=== PATIENT | female | born 1950 | race Caucasian/White ===

== ENCOUNTER 2023-06-12 13:07 | Emergency (ER) | payer MEDICARE, OTHER, SELFPAY ==
[2023-06-12 13:46] VITALS: BP 89/64; PULSE 84; RESP 16; TEMP 36.3; O2SAT 98
--- NOTE | 2023-06-12 14:52 | ED.NURSE ---
Water provided to Pt by jacy LOGAN with . Pt to attempt to provide urine sample.
[2023-06-12 15:09] LABS: Basophils Absolute Auto 0.01 K/uL (0.00-0.30); Basophils Percent Auto 0.2 % (0.0-3.0); Eosinophils Absolute Auto 0.11 K/uL (0.00-0.50); Eosinophils Percent Auto 2.4 % (0.0-7.0); Hematocrit 35.7 % (33.0-51.0); Hemoglobin* 11.6 gm/dL (12.0-16.0); Immature Granulocytes Abs Auto 0.04 K/uL (0.00-0.30); Immature Granulocytes Pct Auto 0.9 %; Lymphocytes Absolute Auto 1.26 K/uL (0.90-2.90); Lymphocytes Percent Auto 27.2 % (20-44); Mean Corpuscular HGB Conc 33 gm/dL (32-36); Mean Corpuscular Hemoglobin 32 pg (26-34); Mean Corpuscular Volume 98 fL (80-100); Monocytes Percent Auto 13.8 % (0.0-11.0); Neutrophils Absolute Auto 2.57 K/uL (1.7-7.0); Neutrophils Percent Auto 55.5 % (42.0-72.0); Platelet Count* 115 K/uL (140-440); RDW Coefficient of Variation % 12.9 % (11.5-15.5); Red Blood Count 3.66 m/uL (4.00-5.20); White Blood Count* 4.63 K/uL (4.50-11.00)
[2023-06-12 15:12] LABS: PCO2 VBG 48 mmHG (40-50); pH VBG 7.38 (7.32-7.43)
[2023-06-12 15:13] LABS: HCO3 VBG 29 mmol/L (21-28); PO2 VBG 34.7 mmHG (25-47)
[2023-06-12 15:15] VITALS: BP 124/93; PULSE 88; RESP 12; O2SAT 98
[2023-06-12 15:16] LABS: Slide Review Reflex No
[2023-06-12 15:22] LABS: Chloride* 97 mmol/L (96-114); Potassium* 3.9 mmol/L (3.6-5.1); Sodium* 134 mmol/L (135-149)
[2023-06-12 15:25] LABS: Anion Gap 10 mEq/L (7-15); Blood Urea Nitrogen* 38 mg/dL (7-30); Carbon Dioxide* 27 mmol/L (20-32); Creatinine* 1.1 mg/dL (0.5-1.5); Estimated Glomerular Filt Rate 52 ml/min
[2023-06-12 15:26] LABS: Calcium* 9.2 mg/dL (8.4-10.6); Glucose* 95 mg/dL (60-115)
[2023-06-12 15:37] LABS: Appearance Urine Clear (Clear); Bilirubin Urine Negative (Negative); Blood Urine Negative (Negative); Color Urine Yellow (Yellow); Glucose Urine Negative (Negative); Ketones Urine Negative (Negative); Leukocyte Esterase Urine Negative (Negative); Nitrite Urine Negative (Negative); Protein Urine Negative (Negative); Urobilinogen Urine 0.2 (0.2-1.0); pH Urine 6.5 (5.0-8.5)
[2023-06-12 15:46] LABS: RBC Urine 0-2 (0-2); WBC Urine 0-2 (0-5)
--- NOTE | 2023-06-12 16:14 | ED.NURSE ---
Pt ambulated around unit with walker, tolerates well. Standby assist only. MD updated.
--- NOTE | 2023-06-12 16:55 | ED.GENADULT ---
HPI - General Adult General Date Seen: 06/12/23 Chief complaint: Altered Mental Status Time Seen by Provider: 06/12/23 14:34 Source: patient Mode of arrival: ambulatory Limitations: no limitations History of Present Illness HPI narrative: Patient is a 73-year-old woman here saying that she is having some urinary frequency and urgency. She is not having any dysuria. She does not have any complaints of fevers, abdominal pain, flank pain. She also notes that a couple weeks ago she had put her rice bag that she uses when she has neck pain in the microwave. She says she usually heat set up for 2 minutes and she accidentally must have hit the wrong button and he did up for 21 minutes. This caused the rice bag to understandably over heat. Her friend who is with her has some concerns about her ability to manage in the independent area versus the assisted living. It sounds as if assisted living is an option although neither of them seem to have really any idea how to make that happen. Her friend expresses concerns about her ability to get around independently. She notes that she walks with a walker. She apparently has a nurse who sets up her medications, she says she is on some medicines that make her sleepy. Related Data Home Medications Medication Instructions Recorded Confirmed apixaban 5 mg tablet (Eliquis) 5 mg PO BID 06/12/23 06/12/23 clobetasol 0.05 % topical ointment 1 applic topical 06/12/23 dextromethorphan IR 45 1 tab PO BID 06/12/23 06/12/23 mg-bupropion ER 105 mg biphasic tablet ([facility]) doxycycline hyclate 100 mg capsule 100 mg PO BID 06/12/23 06/12/23 escitalopram oxalate 20 mg tablet 30 mg PO DAILY 06/12/23 06/12/23 estradiol 0.01% (0.1 mg/gram) vaginal 06/12/23 vaginal cream levothyroxine 88 mcg tablet 88 mcg PO DAILY 06/12/23 06/12/23 lisinopril 5 mg tablet 7.5 mg PO DAILY 06/12/23 06/12/23 lorazepam 1 mg tablet 1 mg PO 3XD PRN 06/12/23 06/12/23 metoprolol succinate 100 mg 100 mg PO DAILY 06/12/23 06/12/23 tablet,extended release 24 hr montelukast 10 mg tablet 10 mg PO DAILY 06/12/23 06/12/23 pantoprazole 40 mg tablet,delayed 40 mg PO DAILY 06/12/23 06/12/23 release pramipexole 0.125 mg tablet 0.125 mg PO 3XD 06/12/23 06/12/23 pregabalin 50 mg capsule 50 mg PO 3XD 06/12/23 06/12/23 rizatriptan 10 mg tablet mg PO 06/12/23 rosuvastatin 10 mg tablet 10 mg PO DAILY 06/12/23 06/12/23 sumatriptan succinate 6 mg/0.5 mL mg subcut 06/12/23 subcutaneous pen injector torsemide 20 mg tablet 20 mg PO DAILY 06/12/23 06/12/23 trazodone 50 mg tablet 50 - 150 mg PO QPM 06/12/23 06/12/23 venlafaxine 150 mg 300 mg PO DAILY 06/12/23 06/12/23 capsule,extended release 24 hr venlafaxine 75 mg capsule,extended 75 mg PO DAILY 06/12/23 06/12/23 release 24 hr Allergies Allergy/AdvReac Type Severity Reaction Status Date / Time amoxicillin Allergy Unknown Verified 06/12/23 14:47 nickel Allergy Unknown Verified 06/12/23 14:47 Penicillins Allergy Unknown Verified 06/12/23 14:47 Review of Systems Status of ROS: Reports: 10 or more systems reviewed and unremarkable except as noted in History and below [facility] Social History Smoking Status: Never smoker How often do you have a drink containing alcohol: never AUDIT-C Alcohol total score: 0 Non-prescribed substance use: denies use Exam Narrative: Exam Narrative: Vital signs as noted above. In general, an alert, well-appearing patient. Head: Normocephalic, atraumatic. Eyes: Pupils are equal reactive. Extraocular movements are full. Conjunctivae are normal. ENT: Mucous membranes are moist. Throat is normal. Neck: Supple without lymphadenopathy. Heart: Regular rate and rhythm. No murmur or rub. Lungs: Clear bilaterally. No increased work of breathing, crackles or wheezes. Abdomen: Soft and nontender. No organomegaly. Extremities: Well perfused. No edema. No calf tenderness. Pulses intact. Neurologic: Patient is alert and oriented to person and place. Speech is fluent. Face is symmetric. Moves all extremities equally. Affect: Normal. Skin: Warm and dry. Well perfused. Const: Vital Signs, click to edit/add: Vital Signs - 24 hr 06/12/23 13:46 06/12/23 15:15 Temperature 97.4 F L Pulse Rate [Pulse Oximeter] 84 88 Respiratory Rate 16 12 Blood Pressure [Ri ght Upper Arm] 89/64 L 124/93 H Pulse Oximetry 98 98 Oxygen Delivery Me thod Room Air Room Air Documenting provider has reviewed patient's vital signs: yes Course Course Hospital Course: There is an initial recorded blood pressure of 89/64. We were on down time when the patient came in and so I did not see that blood pressure for quite some time, and by that time blood pressure had been recheck to was 124/93. I do not know whether the original blood pressure was accurate or not, nothing was done between the 2 on our end. She was not ever tachycardic or febrile. I did check some basic labs, her white blood cell count was normal at 4.6. Her hemoglobin was minimally low at 11.6. She does not report any symptoms of GI bleeding. Platelet count mildly low 115,000. Her gas was essentially normal, bicarb was 29, pH was normal at 7.38. PCO2 was 48. Sodium was 134, metabolic panel was otherwise normal aside from BUN of 38. Creatinine was 1.1. Urinalysis was normal, spec gravity was low at 10 10. 0-2 red cells and 0-2 white cells. No squamous cells, no bacteria. My suspicion for urinary tract infection is quite low. I have discussed all this with her. I have reviewed her medications, she is on trazodone and Ativan, either of which may be contributing to some somnolence. She may want to discuss these medications with her primary doctor. If urinary urgency continues to be a problem, she may want to follow up with Urology. I have encouraged her to find out what would be involved to switch to assisted living as it seems as if she would benefit from more help. I do not see any indication for admission to the hospital today however. We did have her walk around the ER she is ambulatory without any difficulty, exam and laboratory analysis here is unremarkable. Vital Signs Vital signs: Initial Vital Signs Temperature 97.4 F L 06/12/23 13:46 Temperature Source Temporal Artery Scan 06/12/23 13:46 Pulse Rate 84 06/12/23 13:46 Pulse Rhythm Regular 06/12/23 13:46 Pulse Strength 3+ Normal 06/12/23 13:46 Respiratory Rate 16 06/12/23 13:46 Blood Pressure 89/64 L 06/12/23 13:46 Blood Pressure Mean 72 06/12/23 13:46 Blood Pressure Position Sitting 06/12/23 13:46 Pulse Oximetry 98 06/12/23 13:46 Oxygen Delivery Method Room Air 06/12/23 13:46 Vital Signs Temperature 97.4 F L 06/12/23 13:46 Pulse Rate 84 06/12/23 13:46 Respiratory Rate 16 06/12/23 13:46 Blood Pressure 89/64 L 06/12/23 13:46 Pulse Oximetry 98 06/12/23 13:46 Oxygen Delivery Method Room Air 06/12/23 13:46 Temperature 97.4 F L 06/12/23 13:46 Pulse Rate 88 06/12/23 15:15 Respiratory Rate 12 06/12/23 15:15 Blood Pressure 124/93 H 06/12/23 15:15 Pulse Oximetry 98 06/12/23 15:15 Oxygen Delivery Method Room Air 06/12/23 15:15 Medical Decision Making Lab Data Labs: Lab Results 06/12/23 06/12/23 Range/Units 14:56 15:28 WBC 4.63 (4.50-11.00) K/uL RBC 3.66 L (4.00-5.20) m/uL Hgb 11.6 L (12.0-16.0) gm/dL Hct 35.7 (33.0-51.0) % MCV 98 (80-100) fL MCH 32 (26-34) pg MCHC 33 (32-36) gm/dL RDW Coeff of [place] 12.9 (11.5-15.5) % Plt Count 115 L (140-440) K/uL Neut % (Auto) 55.5 (42.0-72.0) % Lymph % (Auto) 27.2 (20-44) % [place] % (Auto) 13.8 H (0.0-11.0) % Eos % (Auto) 2.4 (0.0-7.0) % Baso % (Auto) 0.2 (0.0-3.0) % Neut # (Auto) 2.57 (1.7-7.0) K/uL Lymph # (Auto) 1.26 (0.90-2.90) K/uL [place] # (Auto) 0.60 (0.00-0.90) K/UL Eos # (Auto) 0.11 (0.00-0.50) K/uL Baso # (Auto) 0.01 (0.00-0.30) K/uL Abs Immat Gran (auto) 0.04 (0.00-0.30) K/uL Imm/Tot Granulo (auto) 0.9 % VBG pH 7.38 (7.32-7.43) VBG pCO2 48 (40-50) mmHG VBG pO2 34.7 (25-47) mmHG VBG HCO3 29 H (21-28) mmol/L Sodium 134 L (135-149) mmol/L Potassium 3.9 (3.6-5.1) mmol/L Chloride 97 (96-114) mmol/L Carbon Dioxide 27 (20-32) mmol/L Anion Gap 10 (7-15) mEq/L BUN 38 H (7-30) mg/dL Creatinine 1.1 (0.5-1.5) mg/dL Estimated GFR 52 ml/min Glucose 95 (60-115) mg/dL Calcium 9.2 (8.4-10.6) mg/dL Urine Color Yellow (Yellow) Urine Appearance Clear (Clear) Urine pH 6.5 (5.0-8.5) Ur Specific [place] 1.010 (1.000-1.030) Urine Protein Negative (Negative) Urine Glucose (UA) Negative (Negative) Urine Ketones Negative (Negative) Urine Blood Negative (Negative) Urine Nitrite Negative (Negative) Urine Bilirubin Negative (Negative) Urine Urobilinogen 0.2 (0.2-1.0) Ur Leukocyte Esterase Negative (Negative) Urine RBC 0-2 (0-2) Urine WBC 0-2 (0-5) Ur Squamous Epith Cells None (None-Few) Urine Bacteria None (None) Discharge Plan Discharge Clinical Impression: Weakness Patient Disposition: Home, Self-Care Condition: Stable Instructions: Weakness (ED) Additional Instructions: It sounds as if you would benefit from assisted living verses independent living. You take both trazodone and Ativan, both of which can be sedating and contribute to some confusion. You may want to address these medications with your primary doctor. Your labs today are normal, there is no evidence of urinary tract infection. You may want to limit your fluid intake somewhat and see if that improves how often you need to use the bathroom. If he continued to have significant urinary urgency, follow-up with Urology. Prescriptions: No Action venlafaxine 75 mg capsule,extended release 24hr 75 mg PO DAILY doxycycline hyclate 100 mg capsule 100 mg PO BID torsemide 20 mg tablet 20 mg PO DAILY trazodone 50 mg tablet 50 - 150 mg PO QPM rizatriptan 10 mg tablet PO metoprolol succinate 100 mg tablet extended release 24 hr 100 mg PO DAILY venlafaxine 150 mg capsule,extended release 24hr 300 mg PO DAILY levothyroxine 88 mcg tablet 88 mcg PO DAILY pantoprazole 40 mg tablet,delayed release (DR/EC) 40 mg PO DAILY pramipexole 0.125 mg tablet 0.125 mg PO 3XD montelukast 10 mg tablet 10 mg PO DAILY lisinopril 5 mg tablet 7.5 mg PO DAILY clobetasol 0.05 % ointment 1 applic topical lorazepam 1 mg tablet 1 mg PO 3XD PRN estradiol 0.01 % (0.1 mg/gram) cream vaginal sumatriptan succinate 6 mg/0.5 mL pen injector subcut escitalopram oxalate 20 mg tablet 30 mg PO DAILY rosuvastatin 10 mg tablet 10 mg PO DAILY pregabalin 50 mg capsule 50 mg PO 3XD Eliquis 5 mg tablet 5 mg PO BID [place] 45-105 mg tablet,IR,delayed rel,biphasic 1 tab PO BID Follow Up/Referrals: Provider,Not a Local [Primary Care Provider] - Stand Alone Forms: [employer] Info Instructions
[2023-06-12 17:05] VITALS: BP 94/72
== END 2023-06-12 17:06 | disposition home or self-care (01) ==
PROVIDERS: Emergency Provider Emergency Medicine
DX: R53.1 Weakness (principal)
CPT/HCPCS: 36415; 80048; 81001; 82803; 85025; 99283; 99284

== ENCOUNTER 2023-09-11 12:11 | Outpatient (CLI) | payer MEDICARE, OTHER, SELFPAY | END 2023-09-11 12:12 | disposition home or self-care (01) | LOC: RAD 12:14 | PROVIDERS: Visit Provider Family Medicine | DX: I50.9 Heart failure, unspecified (principal); I51.7 Cardiomegaly; I35.1 Nonrheumatic aortic (valve) insufficiency; I34.1 Nonrheumatic mitral (valve) prolapse; I07.1 Rheumatic tricuspid insufficiency | CPT/HCPCS: 93306 ==

== ENCOUNTER 2023-12-31 18:58 | Outpatient (CLI) | payer MEDICARE, OTHER, SELFPAY | END 2023-12-31 18:59 | disposition home or self-care (01) | LOC: AMB 01-01 10:02 | PROVIDERS: Visit Provider Family Medicine | DX: R53.1 Weakness (principal); R11.2 Nausea with vomiting, unspecified; R19.7 Diarrhea, unspecified | CPT/HCPCS: A0425; A0427 ==

== ENCOUNTER 2023-12-31 19:38 | Observation (INO) | payer MEDICARE, OTHER, SELFPAY ==
[2023-12-31] VITALS (13 sets, daily range): BP systolic 94–135; BP diastolic 53–84; PULSE 75–100; RESP 16; TEMP 36.3–36.6; O2SAT 92–100; BMI 28.3; BMI 26.9
--- NOTE | 2023-12-31 20:11 | ED.NAVMDI ---
HPI - Nausea/Vomiting/Diarrhea General Time Seen by Provider: 20:11 Date Seen: 12/31/23 Chief complaint: Nausea/Vomiting Stated complaint: Weak, vomiting Time Seen by Provider: 12/31/23 20:03 Source: patient and RN notes reviewed Mode of arrival: ambulatory Limitations: no limitations History of Present Illness HPI Narrative: Patient is a 73yo female brought in by EMS from her independent living apartment for nausea/vomiting and diarrhea. She last ate or drank at about 730am today. Did feel more weak earlier today and some body aches without fever but still went to jewish. At 11am started vomiting and has been 3-4x/hour since then, has not been able to keep anything in. She has had diarrhea develop too. Denies any abdominal pain with this. She states that she felt a little chest discomfort just before I came in; was just talking to a inside outside sales representative whom was calling with results from a stress test last week. Essentially, she states that her mitral valve is leaking and causing back pressure into her heart. This has settled down some and the most recent test they did doesn't support surgical correction of the valve. No blood in stool or vomit noted. EMS did start IVF 500cc and gave 4mg IV zofran. She notes that she is still nauseated but zofran was not given that long ago. She doesn't remember her medications. Related Data Home Medications Medication Instructions Recorded Confirmed apixaban 5 mg tablet (Eliquis) 5 mg PO BID 06/12/23 12/31/23 clobetasol 0.05 % topical ointment 1 applic topical 06/12/23 09/15/23 dextromethorphan IR 45 1 tab PO BID 06/12/23 12/31/23 mg-bupropion ER 105 mg biphasic tablet (Auvelity) doxycycline hyclate 100 mg capsule 100 mg PO BID 06/12/23 12/31/23 escitalopram oxalate 20 mg tablet 30 mg PO DAILY 06/12/23 12/31/23 estradiol 0.01% (0.1 mg/gram) vaginal 06/12/23 09/15/23 vaginal cream levothyroxine 88 mcg tablet 88 mcg PO DAILY 06/12/23 12/31/23 lisinopril 5 mg tablet 7.5 mg PO DAILY 08/28/23 03/17/24 lorazepam 1 mg tablet 1 mg PO 3XD PRN 06/12/23 09/15/23 metoprolol succinate 100 mg 100 mg PO DAILY 06/12/23 12/31/23 tablet,extended release 24 hr pantoprazole 40 mg tablet,delayed 40 mg PO DAILY 06/12/23 12/31/23 release pramipexole 0.125 mg tablet 0.125 mg PO 3XD 06/12/23 12/31/23 pregabalin 50 mg capsule 50 mg PO 3XD 06/12/23 12/31/23 rosuvastatin 10 mg tablet 10 mg PO DAILY 06/12/23 09/15/23 sumatriptan succinate 6 mg/0.5 mL mg subcut 06/12/23 09/15/23 subcutaneous pen injector torsemide 20 mg tablet 20 mg PO DAILY 06/12/23 12/31/23 trazodone 50 mg tablet 50 - 150 mg PO QPM 06/12/23 12/31/23 venlafaxine 150 mg 300 mg PO DAILY 06/12/23 12/31/23 capsule,extended release 24 hr venlafaxine 75 mg capsule,extended 75 mg PO DAILY 06/12/23 12/31/23 release 24 hr rizatriptan 10 mg tablet mg PO PRN 09/15/23 09/15/23 Allergies Allergy/AdvReac Type Severity Reaction Status Date / Time amoxicillin Allergy Unknown Verified 09/15/23 13:32 nickel Allergy Unknown Verified 09/15/23 13:32 Penicillins Allergy Unknown Verified 09/15/23 13:32 Review of Systems Status of ROS: Reports: 6 or more systems reviewed and unremarkable except as noted in History and below [facility] Medical History (Updated 12/31/23 @ 22:24 by Toby Warren MD) Hypothyroidism ?E03.9 - Hypothyroidism, unspecified (ICD-10) History of thrombocytopenia ?Z86.2 - Personal history of diseases of the blood and blood-forming organs and certain disorders involving the immune mechanism (ICD-10) Breast cancer ?C50.919 - Malignant neoplasm of unspecified site of unspecified female breast (ICD-10) Hyperlipidemia ?E78.5 - Hyperlipidemia, unspecified (ICD-10) Degenerative disc disease Restless legs ?G25.81 - Restless legs syndrome (ICD-10) Depression ?F32.A - Depression, unspecified (ICD-10) Atrial fibrillation ?I48.91 - Unspecified atrial fibrillation (ICD-10) Mitral regurgitation ?I34.0 - Nonrheumatic mitral (valve) insufficiency (ICD-10) Surgical History (Updated 12/31/23 @ 22:19 by Toby Warren MD) Status post ORIF of fracture of ankle ?Z98.890 - Other specified postprocedural states (ICD-10) ?Z87.81 - Personal history of (healed) traumatic fracture (ICD-10) H/O endoscopic sinus surgery ?Z98.890 - Other specified postprocedural states (ICD-10) History of cholecystectomy ?Z90.49 - Acquired absence of other specified parts of digestive tract (ICD-10) H/O cervical spine surgery ?Z98.890 - Other specified postprocedural states (ICD-10) S/P lumpectomy, left breast ?Z98.890 - Other specified postprocedural states (ICD-10) Previous back surgery ?Z98.890 - Other specified postprocedural states (ICD-10) 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 . Daughter Cassidy is healthcare power of assistant city attorney. Code status is DNR. She does not smoke. She does not drink alcohol What is your current living situation?: I presently have a place to live Problems where you live: no known problems Problems where you live details: N/A In the past 12 months, utilities in danger of being shut off: no In past 12 months, lack of transportation kept you from medical appts, meetings, work, or getting things needed for daily living: yes In the past 12 mos, have been you worried that your food would run out before you had money to buy more?: never true In the past 12 mos, the food you bought just didn't last and you didn't have money to buy more?: never true Highest level of school completed/degree received: Master's degree Smoking Status: Never smoker Do you use any of these nicotine containing products: None Second hand tobacco smoke exposure: No How often do you have a drink containing alcohol: never AUDIT-C Alcohol total score: 0 Non-prescribed substance use: denies use Caffeine: No How often does anyone, including family, friends and others, physically hurt you: never How often does anyone, including family, friends and others, insult or talk down to you: never How often does anyone, including family, friends and others, threaten you with harm: never How often does anyone, including family, friends and others, scream or curse at you: never service: No Exam Const: Vital Signs, click to edit/add: Vital Signs - 24 hr 12/31/23 19:47 12/31/23 20:16 12/31/23 20:18 Temperature 97.7 F Pulse Rate 100 Pulse Rate [Pulse Oximeter] 93 Respiratory Rate 16 16 Blood Pressure Blood Pressure [Ri ght Upper Arm] 134/84 Pulse Oximetry 98 100 100 Oxygen Delivery Me thod Room Air Room Air 12/31/23 20:35 12/31/23 20:50 12/31/23 21:00 Temperature Pulse Rate 83 75 Pulse Rate [Pulse Oximeter] Respiratory Rate Blood Pressure 135/75 Blood Pressure [Ri ght Upper Arm] Pulse Oximetry 95 96 Oxygen Delivery Me thod Room Air Room Air 12/31/23 21:02 12/31/23 21:15 12/31/23 21:34 Temperature Pulse Rate 83 95 Pulse Rate [Pulse Oximeter] Respiratory Rate Blood Pressure 104/54 L 121/72 Blood Pressure [Ri ght Upper Arm] Pulse Oximetry 98 96 Oxygen Delivery Me thod This 73-year-old female is alert, interactive, no apparent distress. She was initially under the blankets with her head, stated the light was bothering her. I did hospitalist nocturnist physician 1 of them. She is very pleasant, cooperative. Pupils are equal round, sclera clear, able speak in complete sentences. Oropharynx with dry mucosa, tongue dry but no exudates or erythema noted. Neck supple, no jugular venous distension. Lungs sound clear. She has no tachypnea, no wheezing or crackles. CV regular rate and rhythm, do not hear any significant murmur, normal S1-S2, no S3-S4. Abdomen is soft, bowel sounds are distant but occasionally present, no rebound or guarding, no organomegaly. Her abdomen exam is completely nontender. She is moving extremities. She does complain of some left anterior chest wall pain when I palpate. Documenting provider has reviewed patient's vital signs: yes Course Course ED Course: This is a 73-year-old female that is currently afebrile, no abdominal pain with nonbloody ongoing nausea vomiting and diarrhea. This very likely represents a gastroenteritis. She certainly could have GI symptoms associated with 1 of the viruses that will cause both respiratory and GI symptoms. Nursing staff did collect the triple viral swab on arrival which is appropriate. EMS has an IV in place, giving her 500 mL. Will get appropriate electrolytes, CBC, lactate, will also check a troponin. Will have nursing staff get an EKG. She did complain of some chest symptoms, this could be secondary from her vomiting, could be some gastritis or heartburn with that. Nonetheless, will consider cardiac etiologies. I do think that there is a higher likelihood that the chest pain is coming from something alternate than cardiac, will hold off on any aspirin at this time. Will continue to monitor her closely. It does not seem like she needs any abdominal imaging based on clinical exam. Will await lab results, may need to give further anti emetics, very likely will need more fluids. Reevaluation(s) Time of Reevaluation #1: 21:06 Reevaluation #1: Patient's lactate elevated at 3.1. Fluids from EMS done, will order another L of NS. She is still feeling nauseated. NO abdominal pain, likely very dehydrated. Awaiting other labs. She has had her gallbladder out, 1/2 of her pancreas removed on questioning of prior abdominal surgeries. Consultations Consultation #1: Have reviewed with the hospitalist Dr. Warren. He accepts cares of this patient. Given age and lactate elevation, likely will need further supportive cares. Am giving a 2nd dose of Zofran as she is still feeling nauseated. Reviewed that we had not done abdominal imaging but I do not feel she needs it at this point. I have examined her abdomen twice, do not feel that there is any need for imaging, exam is benign. Did review her complaint of chest pain, he is aware we are waiting for troponin result. Time: 21:16 Vital Signs Vital signs: Initial Vital Signs Temperature 97.7 F 12/31/23 19:47 Temperature Source Temporal Artery Scan 12/31/23 19:47 Pulse Rate 93 12/31/23 19:47 Respiratory Rate 16 12/31/23 19:47 Blood Pressure 134/84 12/31/23 19:47 Blood Pressure Mean 100 12/31/23 19:47 Blood Pressure Position Sitting 12/31/23 19:47 Pulse Oximetry 98 12/31/23 19:47 Oxygen Delivery Method Room Air 12/31/23 19:47 Vital Signs Temperature 97.7 F 12/31/23 19:47 Pulse Rate 93 12/31/23 19:47 Respiratory Rate 16 12/31/23 19:47 Blood Pressure 134/84 12/31/23 19:47 Pulse Oximetry 98 12/31/23 19:47 Oxygen Delivery Method Room Air 12/31/23 19:47 Temperature 97.3 F L 12/31/23 23:00 Pulse Rate 87 12/31/23 23:00 Respiratory Rate 16 12/31/23 23:00 Blood Pressure 94/65 12/31/23 23:00 Pulse Oximetry 95 12/31/23 23:00 Oxygen Delivery Method Room Air 12/31/23 23:00 Medications Administered Medications: Generic Name Dose Route Start Last Admin Trade Name Freq PRN Reason Stop Dose Admin Lactated Ringer's 1,000 mls @ 125 mls/hr 12/31/23 22:10 12/31/23 23:33 Lactated Ringers 1000 Ml IV 125 mls/hr .Q8H CAMMIE Administration Pramipexole Dihydrochloride 0.125 mg 12/31/23 22:15 12/31/23 23:44 Pramipexole 0.125 Mg Tablet PO 0.125 mg TID CAMMIE Administration Pregabalin 50 mg 12/31/23 22:15 12/31/23 23:43 Pregabalin 50 Mg Capsule PO 50 mg TID CAMMIE Administration Discontinued Medications Generic Name Dose Route Start Last Admin Trade Name Freq PRN Reason Stop Dose Admin Sodium Chloride 1,000 mls @ 500 mls/hr 12/31/23 21:03 12/31/23 21:05 0.9 % Sodium Chloride 1000 Ml IV 12/31/23 23:02 500 mls/hr .Q2H CAMMIE Administration Ondansetron HCl 4 mg 12/31/23 21:15 12/31/23 21:20 Ondansetron 2 Mg/Ml Inj IVP 12/31/23 21:16 4 mg ONCE ONE Administration Pramipexole Dihydrochloride 0.25 mg 12/31/23 22:26 12/31/23 23:44 Pramipexole 0.25 Mg Tablet PO 12/31/23 22:27 0.25 mg ONCE ONE Administration MDM - Nausea/Vomiting/Diarrhea Lab Data Attestation: I reviewed the patient's lab results. Labs: Lab Results 12/31/23 12/31/23 Range/Units 19:42 20:48 WBC 8.40 (4.50-11.00) K/uL RBC 4.31 (4.00-5.20) m/uL Hgb 13.9 (12.0-16.0) gm/dL Hct 41.7 (33.0-51.0) % MCV 97 (80-100) fL MCH 32 (26-34) pg MCHC 33 (32-36) gm/dL RDW Coeff of Vielka 13.0 (11.5-15.5) % Plt Count 79 L (140-440) K/uL Neut % (Auto) 92.1 H (42.0-72.0) % Lymph % (Auto) 3.5 L (20-44) % [place] % (Auto) 4.2 (0.0-11.0) % Eos % (Auto) 0.1 (0.0-7.0) % Baso % (Auto) 0.1 (0.0-3.0) % Neut # (Auto) 7.70 H (1.7-7.0) K/uL Lymph # (Auto) 0.30 L (0.90-2.90) K/uL [place] # (Auto) 0.40 (0.00-0.90) K/UL Eos # (Auto) 0.01 (0.00-0.50) K/uL Baso # (Auto) 0.01 (0.00-0.30) K/uL Abs Immat Gran (auto) 0.00 (0.00-0.30) K/uL Imm/Tot Granulo (auto) 0.0 % Sodium 140 (135-149) mmol/L Potassium 3.7 (3.6-5.1) mmol/L Chloride 106 (96-114) mmol/L Carbon Dioxide 25 (20-32) mmol/L Anion Gap 9 (7-15) mEq/L BUN 39 H (7-30) mg/dL Creatinine 0.8 (0.5-1.5) mg/dL Estimated Creat Clear 36.68 Estimated GFR 77 ml/min Glucose 138 H (60-115) mg/dL Lactate 3.1 H (0.5-1.9) mmol/L Calcium 8.9 (8.4-10.6) mg/dL Magnesium 2.0 (1.5-2.6) mg/dL Total Bilirubin 1.1 (0.1-1.5) mg/dL AST 35 (12-35) U/L ALT 32 (4-35) U/L Alkaline Phosphatase 63 (40-150) U/L Troponin I Cancelled C-Reactive Protein < 0.5 L (0.5-1.0) mg/dL Total Protein 6.7 (6.0-8.3) g/dL Albumin 4.5 (3.3-5.0) g/dL SARS-CoV-2 (PCR) Negative SARS-CoV-2 (Negative) Influenza Type A (PCR) Negative PCR FLU A (Negative) Influenza Type B (PCR) Negative PCR FLU B (Negative) RSV (PCR) Negative PCR RSV (Negative) ECG Data Attestation: I personally reviewed and interpreted this ECG as follows: (Sinus rhythm, 87 beats per minute, frequent PVCs. Some artifact in 1, aVL in 3 particularly. No definitive ischemic change noted.) ECG interpretation date: 12/31/23 ECG interpretation time: 20:44 Prior ECG tracings: not available for review Discharge Plan Discharge Clinical Impression: Gastroenteritis, Dehydration Patient Disposition: Admitted As Observation
[2023-12-31 20:26] LABS: PCR FLU A Negative PCR FLU A (Negative); PCR FLU B Negative PCR FLU B (Negative); PCR RSV Negative PCR RSV (Negative); SARS PCR* Negative SARS-CoV-2 (Negative)
[2023-12-31 20:55] LABS: Lactate* 3.1 mmol/L (0.5-1.9)
[2023-12-31 20:57] LABS: Basophils Absolute Auto 0.01 K/uL (0.00-0.30); Basophils Percent Auto 0.1 % (0.0-3.0); Eosinophils Absolute Auto 0.01 K/uL (0.00-0.50); Eosinophils Percent Auto 0.1 % (0.0-7.0); Hematocrit 41.7 % (33.0-51.0); Hemoglobin* 13.9 gm/dL (12.0-16.0); Lymphocytes Percent Auto 3.5 % (20-44); Mean Corpuscular HGB Conc 33 gm/dL (32-36); Mean Corpuscular Hemoglobin 32 pg (26-34); Mean Corpuscular Volume 97 fL (80-100); Monocytes Percent Auto 4.2 % (0.0-11.0); Neutrophils Percent Auto 92.1 % (42.0-72.0); Platelet Count* 79 K/uL (140-440); Red Blood Count 4.31 m/uL (4.00-5.20)
[2023-12-31 20:59] LABS: Slide Review Reflex No
[2023-12-31] MEDS: 0.9 % SODIUM CHLORIDE 1000 ml 1,000 ML 500 ML IV (21:05)
[2023-12-31 21:13] LABS: Albumin* 4.5 g/dL (3.3-5.0); Chloride* 106 mmol/L (96-114)
[2023-12-31 21:14] LABS: Potassium* 3.7 mmol/L (3.6-5.1); Sodium* 140 mmol/L (135-149)
[2023-12-31 21:16] LABS: Creatinine* 0.8 mg/dL (0.5-1.5); Est. Creatinine Clearance* 36.68; Estimated Glomerular Filt Rate 77 ml/min
[2023-12-31 21:17] LABS: Alanine Aminotransferase* 32 U/L (4-35); Alkaline Phosphatase* 63 U/L (40-150); Anion Gap 9 mEq/L (7-15); Aspartate Amino Transferase* 35 U/L (12-35); Bilirubin Total* 1.1 mg/dL (0.1-1.5); Blood Urea Nitrogen* 39 mg/dL (7-30); Calcium* 8.9 mg/dL (8.4-10.6); Carbon Dioxide* 25 mmol/L (20-32); Glucose* 138 mg/dL (60-115); Total Protein* 6.7 g/dL (6.0-8.3)
[2023-12-31] MEDS: ONDANSETRON 2 MG/ML inj 4 MG IVP (21:20)
[2023-12-31 21:23] LABS: C Reactive Protein* < 0.5 mg/dL (0.5-1.0)
--- NOTE | 2023-12-31 22:06 | P.IMHP_ITS ---
Hospitalist- H&P: HPI History of Present Illness Date Seen: 12/31/23 Chief complaint: Weak, vomiting Narrative: Unruly Lassiter is a 73 year old female with severe mitral regurgitation, depression, gastroesophageal reflux who presents with onset this morning of intractable vomiting and diarrhea. She reports that she was generally doing well with perhaps mild symptoms of illness last evening when she went to bed. She got up this morning and went to anabaptism. At 11:00 a.m. she began recurrent vomiting. Was nonbloody. She did not have any abdominal pain. She then developed diarrhea as well with multiple recurrent episodes. She is not aware of any known exposures of others that have been ill in a similar way. She lives at [facility] where she has been exposed to a number of other people who might be ill however. No history of chronic gastrointestinal illness other than reflux. She has not had any fever. Last week she had evaluation for UTI and cultures were negative. She is on chronic doxycycline for rosacea. No other recent antibiotics. Recent past medical history is notable for fairly extensive cardiac evaluation for her mitral regurgitation. She had an echocardiogram in August 2023 showing severe mitral regurgitation. Followed up with a ERIKA showing similar findings. December 05 she underwent coronary angiogram showing no marked coronary disease but a lot of coronary calcification. She underwent cardiac MRI showing only mild mitral regurgitation. She had a stress echo showing moderate mitral regurgitation but she did not reach a target heart rate. She has a preserved ejection fraction of 60-65%. She is getting ongoing evaluation for p ossible mitral valve surgery. Review of Systems Narrative: She reports generally doing well other than fatigue from her extensive cardiac evaluation and now today her vomiting and diarrhea. No other significant new recent problems. [facility] Medical History (Updated 12/31/23 @ 22:24 by Toby Warren MD) Hypothyroidism ?E03.9 - Hypothyroidism, unspecified (ICD-10) History of thrombocytopenia ?Z86.2 - Personal history of diseases of the blood and blood-forming organs and certain disorders involving the immune mechanism (ICD-10) Breast cancer ?C50.919 - Malignant neoplasm of unspecified site of unspecified female breast (ICD-10) Hyperlipidemia ?E78.5 - Hyperlipidemia, unspecified (ICD-10) Degenerative disc disease Restless legs ?G25.81 - Restless legs syndrome (ICD-10) Depression ?F32.A - Depression, unspecified (ICD-10) Atrial fibrillation ?I48.91 - Unspecified atrial fibrillation (ICD-10) Mitral regurgitation ?I34.0 - Nonrheumatic mitral (valve) insufficiency (ICD-10) Surgical History (Updated 12/31/23 @ 22:19 by Toby Warren MD) Status post ORIF of fracture of ankle ?Z98.890 - Other specified postprocedural states (ICD-10) ?Z87.81 - Personal history of (healed) traumatic fracture (ICD-10) H/O endoscopic sinus surgery ?Z98.890 - Other specified postprocedural states (ICD-10) History of cholecystectomy ?Z90.49 - Acquired absence of other specified parts of digestive tract (ICD- 10) H/O cervical spine surgery ?Z98.890 - Other specified postprocedural states (ICD-10) S/P lumpectomy, left breast ?Z98.890 - Other specified postprocedural states (ICD-10) Previous back surgery ?Z98.890 - Other specified postprocedural states (ICD-10) 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 . Daughter Cassidy is healthcare power of prosecuting attorney. Code status is DNR. She does not smoke. She does not drink alcohol Smoking Status: Never smoker Do you use any of these nicotine containing products: None Second hand tobacco smoke exposure: No How often do you have a drink containing alcohol: never AUDIT-C Alcohol total score: 0 Non-prescribed substance use: denies use Meds Home Medications and Allergies Home Medications Medication Instructions Recorded Confirmed Type apixaban 5 mg tablet (Eliquis) 5 mg PO BID 06/12/23 12/31/23 History clobetasol 0.05 % topical ointment 1 applic topical 06/12/23 09/15/23 History dextromethorphan IR 45 1 tab PO BID 06/12/23 12/31/23 History mg-bupropion ER 105 mg biphasic tablet (Auvelity) doxycycline hyclate 100 mg capsule 100 mg PO BID 06/12/23 12/31/23 History escitalopram oxalate 20 mg tablet 30 mg PO DAILY 06/12/23 12/31/23 History estradiol 0.01% (0.1 mg/gram) vaginal 06/12/23 09/15/23 History vaginal cream levothyroxine 88 mcg tablet 88 mcg PO DAILY 06/12/23 12/31/23 History lisinopril 5 mg tablet 7.5 mg PO DAILY 06/12/23 12/31/23 History lorazepam 1 mg tablet 1 mg PO 3XD PRN 06/12/23 09/15/23 History metoprolol succinate 100 mg 100 mg PO DAILY 06/12/23 12/31/23 History tablet,extended release 24 hr pantoprazole 40 mg tablet,delayed 40 mg PO DAILY 06/12/23 12/31/23 History release pramipexole 0.125 mg tablet 0.125 mg PO 3XD 06/12/23 12/31/23 History pregabalin 50 mg capsule 50 mg PO 3XD 06/12/23 12/31/23 History rosuvastatin 10 mg tablet 10 mg PO DAILY 06/12/23 09/15/23 History sumatriptan succinate 6 mg/0.5 mL mg subcut 06/12/23 09/15/23 History subcutaneous pen injector torsemide 20 mg tablet 20 mg PO DAILY 06/12/23 12/31/23 History trazodone 50 mg tablet 50 - 150 mg PO QPM 06/12/23 12/31/23 History venlafaxine 150 mg 300 mg PO DAILY 06/12/23 12/31/23 History capsule,extended release 24 hr venlafaxine 75 mg capsule,extended 75 mg PO DAILY 06/12/23 12/31/23 History release 24 hr rizatriptan 10 mg tablet mg PO PRN 09/15/23 09/15/23 History Allergies Allergy/AdvReac Type Severity Reaction Status Date / Time amoxicillin Allergy Unknown Verified 09/15/23 13:32 nickel Allergy Unknown Verified 09/15/23 13:32 Penicillins Allergy Unknown Verified 09/15/23 13:32 Exam Narrative: Exam Narrative: She is alert and tired appearing. She gives her own history. Eyes normal. Sclerae nonicteric. Oropharynx with dry mucous membranes. Neck is supple without mass or adenopathy. Respirations are clear to auscultation. No wheezing rales or rhonchi. Good air exchange all lung [place]. Cardiovascular: S1, S2, irregularly irregular. 1/6 systolic murmur. No gallop or rub. Abdomen: Bowel sounds active. Abdomen is soft without tenderness or mass. External genitalia normal. Extremities: No edema. Intact pedal pulses. Feet are somewhat cool to touch. No rash. Const: Vital Signs, click to edit/add: Vital Signs - 24 hr 12/31/23 19:47 12/31/23 20:16 12/31/23 20:18 Temperature 97.7 F Pulse Rate 100 Pulse Rate [Pulse Oximeter] 93 Respiratory Rate 16 16 Blood Pressure Blood Pressure [Ri ght Upper Arm] 134/84 Pulse Oximetry 98 100 100 Oxygen Delivery Me thod Room Air Room Air 12/31/23 20:35 12/31/23 20:50 12/31/23 21:00 Temperature Pulse Rate 83 75 Pulse Rate [Pulse Oximeter] Respiratory Rate Blood Pressure 135/75 Blood Pressure [Ri ght Upper Arm] Pulse Oximetry 95 96 Oxygen Delivery Me thod Room Air Room Air 12/31/23 21:02 12/31/23 21:15 12/31/23 21:34 Temperature Pulse Rate 83 95 Pulse Rate [Pulse Oximeter] Respiratory Rate Blood Pressure 104/54 L 121/72 Blood Pressure [Ri ght Upper Arm] Pulse Oximetry 98 96 Oxygen Delivery Me thod 12/31/23 21:39 12/31/23 21:45 Temperature Pulse Rate 77 80 Pulse Rate [Pulse Oximeter] Respiratory Rate Blood Pressure Blood Pressure [Ri ght Upper Arm] Pulse Oximetry 100 92 Oxygen Delivery Me thod Documenting provider has reviewed patient's vital signs: yes Hospitalist - H&P: Result Labs Labs: Short CBC 12/31/23 Range/Units 20:48 WBC 8.40 (4.50-11.00) K/uL Hgb 13.9 (12.0-16.0) gm/dL Hct 41.7 (33.0-51.0) % Plt Count 79 L (140-440) K/uL BMP 12/31/23 20:48 Sodium 140 Potassium 3.7 Chloride 106 Carbon Dioxide 25 BUN 39 H Creatinine 0.8 Glucose 138 H Calcium 8.9 Liver Function 12/31/23 Range/Units 20:48 Total Bilirubin 1.1 (0.1-1.5) mg/dL AST 35 (12-35) U/L ALT 32 (4-35) U/L Alkaline Phosphatase 63 (40-150) U/L Albumin 4.5 (3.3-5.0) g/dL Assessment and Plan Assessment and plan (1) Dehydration: Problem comment: Hold torsemide and lisinopril. Provide maintenance fluids tonight. Status: Acute (2) Gastroenteritis: Problem comment: Likely cause of current illness. Further testing tomorrow if not clinically improving. Status: Acute (3) History of thrombocytopenia: Problem comment: Previous history of thrombocytopenia. Now recurrent on this admission in 12/31/2023. Recheck in a.m. Status: Acute Plan Patient is admitted to the hospital for IV fluids, monitoring of vomiting and diarrhea. Cautious fluid resuscitation given underlying valvular heart disease. Hold lisinopril and torsemide pending clinical improvement. Hold doxycycline. Resume other home medications. Total Time Spent Total Time Spent: Total time spent today is 60 minutes, 40 minutes in coordination care and discussing with patient other providers ongoing evaluation management of dehydration, gastroenteritis in the context of heart disease
[2023-12-31 22:54] LABS: Troponin I* < 0.01 ng/mL (0.01-0.04)
[2023-12-31] MEDS: LACTATED RINGERS 1000 ML 1,000 ML 125 ML IV (23:33)
[2023-12-31] MEDS: PREGABALIN 50 MG CAPSULE PO (23:43)
[2023-12-31] MEDS: PRAMIPEXOLE 0.25 MG TABLET PO (23:44)
[2024-01-01] VITALS (8 sets, daily range): BP systolic 84–111; BP diastolic 56–91; PULSE 72–128; RESP 12–16; TEMP 36.3–36.8; O2SAT 96–100
[2024-01-01] MEDS: MELATONIN 3 MG TABLET PO ×2 (01:31→22:52)
--- NOTE | 2024-01-01 04:21 | PC.NURSE ---
Shift note: Pt was brought to the unit from the ED on bed at 2205, conscious, a/o. Pt was able to use the standing scale with A1. Appeared weak and came with vomitus bag and 1L of saline running at 500ml/hr. Vitally stable on arrival. At 2250, pt asked to go the BR. Had incontinent diarrhea and 2 other diarrhea episode by 2330. Pt asked to have a shower. Assisted with the shower. Treatment given as prescribed. There was discrepancy with the Pramipexole order. MD notified through charge nurse and asked to give 0.25mg instead of multiple dose of additional 0.125mg. IV R/L running at 125ml/hr. Pt requested for sleeping pill. Melatonin 3mg given. Pt confirmed feeling nauseated without vomiting on admission. Pt asked for sprite which appeared effective. No fever recorded.
[2024-01-01] MEDS: LEVOTHYROXINE 88 MCG TABLET PO (06:39)
[2024-01-01] MEDS: LACTATED RINGERS 1000 ML 1,000 ML 125 ML IV ×2 (06:39→15:07)
[2024-01-01 06:45] LABS: Basophils Percent Auto 0.3 % (0.0-3.0); Hemoglobin* 10.3 gm/dL (12.0-16.0); Lymphocytes Percent Auto 13.4 % (20-44); Mean Corpuscular HGB Conc 33 gm/dL (32-36); Mean Corpuscular Hemoglobin 32 pg (26-34); Mean Corpuscular Volume 96 fL (80-100); Monocytes Percent Auto 10.7 % (0.0-11.0); Neutrophils Percent Auto 75.6 % (42.0-72.0); Platelet Count* 63 K/uL (140-440); RDW Coefficient of Variation % 13.1 % (11.5-15.5); Red Blood Count 3.23 m/uL (4.00-5.20); White Blood Count* 3.07 K/uL (4.50-11.00)
[2024-01-01 06:46] LABS: Lactate* 1.5 mmol/L (0.5-1.9)
[2024-01-01 06:57] LABS: Slide Review Reflex No
[2024-01-01 08:00] LABS: Chloride* 109 mmol/L (96-114); Potassium* 3.5 mmol/L (3.6-5.1)
[2024-01-01 08:03] LABS: Carbon Dioxide* 27 mmol/L (20-32); Creatinine* 0.7 mg/dL (0.5-1.5); Est. Creatinine Clearance* 38.44; Estimated Glomerular Filt Rate 90 ml/min
[2024-01-01 08:04] LABS: Blood Urea Nitrogen* 24 mg/dL (7-30); Calcium* 8.4 mg/dL (8.4-10.6); Glucose* 111 mg/dL (60-115)
[2024-01-01 08:11] LABS: Anion Gap 1 mEq/L (7-15); Sodium* 137 mmol/L (135-149)
[2024-01-01] MEDS: OMEPRAZOLE 20 MG CAPSULE DR 40 MG PO (09:15)
[2024-01-01] MEDS: VENLAFAXINE ER 75 MG CAPSULE 300 MG PO ×2 (09:15→14:00)
[2024-01-01] MEDS: PREGABALIN 50 MG CAPSULE PO ×3 (09:15→21:47)
[2024-01-01] MEDS: PRAMIPEXOLE 0.125 MG TABLET PO ×3 (09:15→21:43)
[2024-01-01] MEDS: APIXABAN 5 MG TABLET PO (09:15)
[2024-01-01] MEDS: ESCITALOPRAM 10 MG TABLET 20 MG PO (09:15)
[2024-01-01] MEDS: METOPROLOL SUCCINATE (XL) 100 MG TAB PO (09:16)
--- NOTE | 2024-01-01 11:11 | PM.IMPN1 ---
Progress Note: A&P Assessment and plan (1) Dehydration: Problem details: Appetite is still poor and still having loose stools, but improving - Continue to hold torsemide and lisinopril. - Continue maintenance fluids tonight. Status: Acute (2) Gastroenteritis: Problem details: Likely cause of current illness. -Continue supportive cares today -If no improvement by tomorrow or if she develops abdominal pain, may need further workup Status: Acute (3) History of thrombocytopenia: Problem details: Previous history of thrombocytopenia. Now recurrent on this admission in 12/31/2023. Now with Hgb drop. Suspect some diultion, but unlikely explains all. Most likely due to acute infection. No evidence of bleeding -Hold apixaban -Check peripheral smear -Follow CBC, consider FOBT if anemia worsening Status: Acute Subjective Date Seen: 01/01/24 Interval history: Patient is seen and examined. She is starting to feel a little better, but still with frequent stools and not much appetite. Nausea is improved and she has not had vomiting today. Denies any focal abdominal pain but has irritability in her abdomen. EXAM General-no distress, non-toxic HEENT- NCAT Resp- Breathing is comfortable and unlabored Abd- No distension, soft and nontender Neuro- No lateralizing deficits Exam Const: Vital Signs, click to edit/add: Vital Signs - 24 hr 12/31/23 19:47 12/31/23 20:16 12/31/23 20:18 Temperature 97.7 F Pulse Rate 100 Pulse Rate [Pulse Oximeter] 93 Pulse Rate [Right Pulse Oximeter] Respiratory Rate 16 16 Blood Pressure Blood Pressure [Ri ght Arm] Blood Pressure [Ri ght Upper Arm] 134/84 Pulse Oximetry 98 100 100 Oxygen Delivery Me thod Room Air Room Air 12/31/23 20:35 12/31/23 20:50 12/31/23 21:00 Temperature Pulse Rate 83 75 Pulse Rate [Pulse Oximeter] Pulse Rate [Right Pulse Oximeter] Respiratory Rate Blood Pressure 135/75 Blood Pressure [Ri ght Arm] Blood Pressure [Ri ght Upper Arm] Pulse Oximetry 95 96 Oxygen Delivery Me thod Room Air Room Air 12/31/23 21:02 12/31/23 21:15 12/31/23 21:34 Temperature Pulse Rate 83 95 Pulse Rate [Pulse Oximeter] Pulse Rate [Right Pulse Oximeter] Respiratory Rate Blood Pressure 104/54 L 121/72 Blood Pressure [Ri ght Arm] Blood Pressure [Ri ght Upper Arm] Pulse Oximetry 98 96 Oxygen Delivery Me thod 12/31/23 21:39 12/31/23 21:45 12/31/23 22:26 Temperature 97.8 F Pulse Rate 77 80 Pulse Rate [Pulse Oximeter] Pulse Rate [Right Pulse Oximeter] 81 Respiratory Rate 16 Blood Pressure Blood Pressure [Ri ght Arm] 119/53 L Blood Pressure [Ri ght Upper Arm] Pulse Oximetry 100 92 98 Oxygen Delivery Me thod Room Air 12/31/23 23:00 12/31/23 23:00 01/01/24 02:20 Temperature 97.3 F L 97.3 F L Pulse Rate Pulse Rate [Pulse Oximeter] Pulse Rate [Right Pulse Oximeter] 87 87 72 Respiratory Rate 16 16 16 Blood Pressure Blood Pressure [Ri ght Arm] 94/65 95/56 L Blood Pressure [Ri ght Upper Arm] Pulse Oximetry 95 97 [facility] Room Air 01/01/24 08:07 01/01/24 08:07 Temperature 98.2 F Pulse Rate Pulse Rate [Pulse Oximeter] Pulse Rate [Right Pulse Oximeter] 74 74 Respiratory Rate 12 12 Blood Pressure Blood Pressure [Ri ght Arm] 105/64 Blood Pressure [Ri ght Upper Arm] Pulse Oximetry 97 Oxygen Delivery Nh thod Room Air Labs Labs: Laboratory Results - last 24 hr 12/31/23 12/31/23 12/31/23 19:42 20:48 21:37 WBC 8.40 RBC 4.31 Hgb 13.9 Hct 41.7 MCV 97 MCH 32 MCHC 33 RDW Coeff of Vielka 13.0 Plt Count 79 L Neut % (Auto) 92.1 H Lymph % (Auto) 3.5 L [place] % (Auto) 4.2 Eos % (Auto) 0.1 Baso % (Auto) 0.1 Neut # (Auto) 7.70 H Lymph # (Auto) 0.30 L [place] # (Auto) 0.40 Eos # (Auto) 0.01 Baso # (Auto) 0.01 Abs Immat Gran (auto) 0.00 Imm/Tot Granulo (auto) 0.0 Sodium 140 Potassium 3.7 Chloride 106 Carbon Dioxide 25 Anion Gap 9 BUN 39 H Creatinine 0.8 Estimated Creat Clear 36.68 Estimated GFR 77 Glucose 138 H Lactate 3.1 H Calcium 8.9 Magnesium 2.0 Total Bilirubin 1.1 AST 35 ALT 32 Alkaline Phosphatase 63 Troponin I Cancelled < 0.01 L C-Reactive Protein < 0.5 L Total Protein 6.7 Albumin 4.5 SARS-CoV-2 (PCR) Negative SARS-CoV-2 Influenza Type A (PCR) Negative PCR FLU A Influenza Type B (PCR) Negative PCR FLU B RSV (PCR) Negative PCR RSV 01/01/24 06:30 WBC 3.07 L RBC 3.23 L Hgb 10.3 L Hct 31.0 L MCV 96 MCH 32 MCHC 33 RDW Coeff of Vielka 13.1 Plt Count 63 L Neut % (Auto) 75.6 H Lymph % (Auto) 13.4 L [place] % (Auto) 10.7 Eos % (Auto) 0.0 Baso % (Auto) 0.3 Neut # (Auto) 2.30 Lymph # (Auto) 0.40 L [place] # (Auto) 0.30 Eos # (Auto) 0.00 Baso # (Auto) 0.00 Abs Immat Gran (auto) 0.00 Imm/Tot Granulo (auto) 0.0 Sodium 137 Potassium 3.5 L Chloride 109 Carbon Dioxide 27 Anion Gap 1 L BUN 24 Creatinine 0.7 Estimated Creat Clear 38.44 Estimated GFR 90 Glucose 111 Lactate 1.5 Calcium 8.4 Magnesium Total Bilirubin AST ALT Alkaline Phosphatase Troponin I C-Reactive Protein Total Protein Albumin SARS-CoV-2 (PCR) Influenza Type A (PCR) Influenza Type B (PCR) RSV (PCR)
[2024-01-01] MEDS: ACETAMINOPHEN 325 MG TABLET 650 MG PO ×2 (11:52→21:55)
[2024-01-01 13:15] LABS: Mean Corpuscular HGB Conc 33 gm/dL (32-36); Mean Corpuscular Hemoglobin 32 pg (26-34); Mean Corpuscular Volume 99 fL (80-100); Red Blood Count 2.43 m/uL (4.00-5.20)
[2024-01-01 13:24] LABS: Chloride* 108 mmol/L (96-114); Potassium* 3.7 mmol/L (3.6-5.1); Sodium* 133 mmol/L (135-149)
[2024-01-01 13:27] LABS: Anion Gap 4 mEq/L (7-15); Blood Urea Nitrogen* 14 mg/dL (7-30); Carbon Dioxide* 21 mmol/L (20-32); Creatinine* 0.4 mg/dL (0.5-1.5); Est. Creatinine Clearance* 38.44; Estimated Glomerular Filt Rate 103 ml/min
[2024-01-01 13:28] LABS: Calcium* 7.5 mg/dL (8.4-10.6); Glucose* 78 mg/dL (60-115)
[2024-01-01 13:39] LABS: Hemoglobin* 7.8 gm/dL (12.0-16.0); White Blood Count* 1.75 K/uL (4.50-11.00)
[2024-01-01 13:40] LABS: Platelet Count* 46 K/uL (140-440); Slide Review Reflex No
--- NOTE | 2024-01-01 15:51 | CT_ITS ---
Patient: DESTINEE THOMPSON Facility:?[facility] Patient ID:?[id number] Site Patient ID:?[id number]. Site :?[id number] Study:?CT-Abdomen/Pelvis W/ 71CC ISOVUE 370-01/01/2024 5:14:58 PM Ordering Physician:KAMILA Final Report: INDICATION: Vomiting. Hypotension. TECHNIQUE: CT abdomen and pelvis acquired with 71 cc of Isovue 370 IV contrast. COMPARISON: None available. FINDINGS: Lower chest: Lung bases are clear. No pleural or pericardial effusions. Liver: Fatty change and subtle contour irregularity concerning for cirrhosis. No focal lesion. Borderline/mild dilatation of the portal vein with upper abdominal venous collaterals, including gastroesophageal varices suggests underlying portal hypertension. Spleen: Unremarkable. Pancreas: Distal pancreatectomy changes. No CT evidence of acute pancreatitis. No peripancreatic fluid collection. Gallbladder and bile ducts: Prior cholecystectomy. No biliary ductal dilatation. Kidneys: No urolithiasis, hydronephrosis or suspicious renal lesion. Adrenal glands: No nodules. GI tract: Mild fluid retention within distal borderline dilated small bowel loops. No discrete bowel wall thickening. There is trace pelvic free fluid. No pneumatosis or free intraperitoneal gas. Normal appendix. Vascular structures: Atherosclerotic disease. No abdominal aortic aneurysm. Lymph nodes: Unremarkable. Pelvic Organs: Unremarkable. Bones: Degenerative changes of the spine and pelvis. Spinal fusion hardware at L5-S1 appears intact. No acute or suspicious osseous abnormality. IMPRESSION: 1. Mild fluid retention within borderline dilated small bowel loops and trace free fluid suggests an underlying enteritis. No discrete bowel wall thickening, pneumatosis or free intraperitoneal gas. 2. 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 Trace pelvic free fluid could also be related to underlying hepatocellular disease. Dictated by Cheikh Escobar MD @ 01/01/2024 7:02:04 PM Please note that all CT scans at this facility use dose modulation, iterative reconstruction, and/or weight-based dosing when appropriate to reduce radiation dose to as low as reasonably achievable. Dictated by: Cheikh Escobar MD @ 01/01/2024 19:02:33 Signed by:?Cheikh Escobar MD @01/01/2024 7:02:33 PM (Electronic Signature)
[2024-01-01] MEDS: LACTATED RINGERS 500 ML 500 ML IV (16:26)
[2024-01-01] MEDS: VENLAFAXINE ER 75 MG CAPSULE PO (16:29)
[2024-01-01] MEDS: ONDANSETRON 2 MG/ML inj 4 MG IVP (17:18)
[2024-01-01] MEDS: POTASSIUM CHLORIDE 10 MEQ CAPSULE ER 20 MEQ PO (17:59)
--- NOTE | 2024-01-01 18:28 | PC.NURSE ---
End of Shift: Patient pleasant and cooperative. Patient vitally stable, lungs clear, BS WNL, IV running LR at 125. Patient has reported back/neck pain and a headache, tylenol given once and aqua K pad in use. Patient is SBA/walker, with IV pole. Patient given zophran once as she reported nausea after CT. Patient with small appetite but tolerating regular diet. Patient urinating and has had multiple loose BM. Patient does have blood at rectum when wiping and anus does have an area of inflammation, last BM did not have any blood.
[2024-01-01 18:32] LABS: C.Difficile Negative (Negative); CDIFFEPI 027 PRESUMPTIVE NEGATIVE (Negative)
[2024-01-01] MEDS: SODIUM CHLORIDE 0.9 % (FLUSH) 10 ML SYRINGE 5 ML IVF (21:43)
[2024-01-01] MEDS: METOPROLOL TARTRATE 25 MG TABLET PO (21:43)
[2024-01-01] MEDS: TRAZODONE HCL 50 MG TABLET PO (21:47)
[2024-01-01 21:52] LABS: Eosinophils Percent Auto 1.1 % (0.0-7.0); Hematocrit 30.8 % (33.0-51.0); Hemoglobin* 10.1 gm/dL (12.0-16.0); Lymphocytes Percent Auto 22.7 % (20-44); Mean Corpuscular HGB Conc 33 gm/dL (32-36); Mean Corpuscular Hemoglobin 32 pg (26-34); Mean Corpuscular Volume 98 fL (80-100); Monocytes Percent Auto 16.7 % (0.0-11.0); Neutrophils Percent Auto 59.5 % (42.0-72.0); Platelet Count* 67 K/uL (140-440); RDW Coefficient of Variation % 13.5 % (11.5-15.5); Red Blood Count 3.13 m/uL (4.00-5.20); White Blood Count* 2.64 K/uL (4.50-11.00)
[2024-01-01 22:02] LABS: Slide Review Reflex No
[2024-01-01 22:15] LABS: Lactate* 1.4 mmol/L (0.5-1.9)
[2024-01-01 22:18] LABS: NT Pro B Type NatriureticPept* 7880 pg/mL; Troponin I* < 0.01 ng/mL (0.01-0.04)
[2024-01-02] MEDS: LACTATED RINGERS 1000 ML 1,000 ML 125 ML IV ×2 (01:34→10:10)
[2024-01-02 01:40] VITALS: BP 103/65; PULSE 106; RESP 20; TEMP 36.7; O2SAT 99
[2024-01-02 06:19] LABS: Basophils Percent Auto 0.4 % (0.0-3.0); Eosinophils Percent Auto 1.5 % (0.0-7.0); Hemoglobin* 9.9 gm/dL (12.0-16.0); Immature Granulocytes Pct Auto 1.2 %; Lymphocytes Percent Auto 23.6 % (20-44); Mean Corpuscular HGB Conc 33 gm/dL (32-36); Mean Corpuscular Hemoglobin 33 pg (26-34); Mean Corpuscular Volume 98 fL (80-100); Monocytes Percent Auto 16.6 % (0.0-11.0); Neutrophils Percent Auto 56.7 % (42.0-72.0); Platelet Count* 58 K/uL (140-440); RDW Coefficient of Variation % 13.5 % (11.5-15.5); Red Blood Count 3.05 m/uL (4.00-5.20); White Blood Count* 2.59 K/uL (4.50-11.00)
[2024-01-02 06:21] LABS: Slide Review Reflex No
[2024-01-02 06:34] LABS: Chloride* 105 mmol/L (96-114); Sodium* 135 mmol/L (135-149)
[2024-01-02 06:35] LABS: Potassium* 3.7 mmol/L (3.6-5.1)
[2024-01-02 06:37] LABS: Creatinine* 0.6 mg/dL (0.5-1.5); Est. Creatinine Clearance* 38.44; Estimated Glomerular Filt Rate 94 ml/min
[2024-01-02 06:38] LABS: Anion Gap 4 mEq/L (7-15); Blood Urea Nitrogen* 11 mg/dL (7-30); Calcium* 8.1 mg/dL (8.4-10.6); Carbon Dioxide* 26 mmol/L (20-32); Glucose* 106 mg/dL (60-115)
[2024-01-02] MEDS: LEVOTHYROXINE 88 MCG TABLET PO (06:51)
[2024-01-02 07:28] VITALS: BP 86/44; PULSE 74; RESP 14; TEMP 36.6; O2SAT 99
[2024-01-02 07:30] VITALS: BP 121/75; PULSE 110; PULSE 114; RESP 14
[2024-01-02 07:31] VITALS: BP 133/98; PULSE 114
[2024-01-02] MEDS: POTASSIUM CHLORIDE 10 MEQ CAPSULE ER 20 MEQ PO (07:41)
--- NOTE | 2024-01-02 08:42 | PC.NURSE ---
Pt alert and oriented x3. Afebrile. Pt reports 5/10 pain in back, abdomen, and neck. Pain managed with PRN medication. Pt was tachycardic with irregular heart beat, pt denied chest pain, SOB, N/V, headache. Updated Dr. Warren, ordered EKG, and metoprolol tartrate 25 mg. Pt is up SBA with walker, had several small loose bm's. Pt slept intermittently throughout night.
[2024-01-02] MEDS: OMEPRAZOLE 20 MG CAPSULE DR 40 MG PO (08:46)
[2024-01-02] MEDS: PREGABALIN 50 MG CAPSULE PO ×2 (08:46→13:58)
[2024-01-02] MEDS: PRAMIPEXOLE 0.125 MG TABLET PO ×2 (08:46→13:58)
[2024-01-02] MEDS: ESCITALOPRAM 10 MG TABLET 20 MG PO (08:47)
[2024-01-02] MEDS: METOPROLOL SUCCINATE (XL) 100 MG TAB PO (08:47)
[2024-01-02] MEDS: VENLAFAXINE ER 75 MG CAPSULE 300 MG PO ×2 (08:47→13:58)
[2024-01-02 11:00] VITALS: BP 128/79; PULSE 105; RESP 12; TEMP 36.6; O2SAT 98
--- NOTE | 2024-01-02 14:13 | PC.SOCIAL ---
Met with pt to discuss discharge plans. Pt is concerned to go back to [facility] because there is Covid in the building. Discussed ways to isolate, so pt does not get Covid. Phone call with pt and pt's friend to discuss further. Pt's friend will plan to bring food to pt at [facility], so pt does not have to go to the dining room for the time being. Pt's friend will come greens picker pt for discharge at 3:00 pm today. Pt is medically cleared for discharge. Provided update to pt's nurse, , and charge nurse. Charge nurse will fax discharge summary to [facility]. Charge nurse informs that nursing from [facility] did call charge nurse earlier today and provided a fax number for discharge orders. Phone call to Mavis (nurse, [facility]) to provide update. Left a voicemail informing that pt will discharge today and nursing will fax orders to [facility]. Social work will follow up as needed.
--- NOTE | 2024-01-02 14:14 | P.DS_ITS ---
DS: Providers Provider Date Seen: 01/02/24 Date of admission: 12/31/23 21:36 Primary care physician: Nellie Bear MD Admitting Clinician: Toby Warren MD Consults: 12/31/23 22:43 Consult to Residential Sales Consultant [CONS] Routine Comment: Reason for Consult:: Social Service Consult 01/02/24 10:51 Consult to Residential Sales Consultant [CONS] Routine Comment: discharge planning, patient concerns Reason for Consult:: Social Service Consult Attending Physician on discharge: Emilia Harrison MD Date of Discharge: 01/02/24 DS: Diagnosis Discharge Diagnosis (1) Gastroenteritis: Status: Acute Problem details: Likely cause of current illness. CT scan without diverticulitis, consistent with gastroenteritis. (2) History of thrombocytopenia: Status: Acute Problem details: Previous history of thrombocytopenia. Now recurrent on this admission in 12/31/2023. Now with Hgb drop. Suspect some diultion, but unlikely explains all. Most likely due to acute infection. Hgb and platelets stabilized prior to DC, but I held apixaban and subsequently her estradiol until she can follow up with PCP to demonstrate stable hgb and plts. Peripheral smear is pending at the time of discharge (3) Anemia: Status: Acute (4) Dehydration: Status: Acute Problem details: Appetite is still poor and still having loose stools, but improving - Continue to hold torsemide until follow up with PCP. (5) Fatty (change of) liver, not elsewhere classified: Status: Acute Problem details: Incidentally noted on CT abd. Recommend outpatient follow up DS: Summary Hospital Course Hospital Course: Patient was admitted with generalized weakness, nausea, vomiting and diarrhea. Presentation was felt to be consistent with acute gastroenteritis. She was admitted for supportive cares. She continued to have loose stools and unfortunately developed pancytopenia, but counts were essentially stable at the time of discharge. She did have a CT scan which was consistent with gastroenteritis and incidentally showed fatty liver changes. She was able to ambulate well and was tolerating a limited diet. She will discharge back to [facility], but should follow up with PCP in 1 week to repeat labs before resuming diuretic, anticoagulation and estradiol. Status at Discharge Functional status at discharge: independent ambulation Time Spent with Patient Time attestation: Total time spent providing and/or coordinating discharge services: Time spent: Greater than 30 minutes Exam Narrative: Exam Narrative: Patient was seen and examined on the day of discharge with stable exam Const: Vital Signs, click to edit/add: Vital Signs - 24 hr 01/01/24 15:10 01/01/24 15:10 01/01/24 15:11 Temperature 98 F Pulse Rate [Right Pulse Oximeter] 108 H 108 H 128 H Respiratory Rate 16 16 Blood Pressure [Ri ght Arm] 95/62 84/60 L Pulse Oximetry 96 Oxygen Delivery Me thod Room Air 01/01/24 15:13 01/01/24 19:50 01/01/24 22:40 Temperature 97.5 F L 97.8 F Pulse Rate [Right Pulse Oximeter] 119 H 111 H 102 H Respiratory Rate 16 16 Blood Pressure [Ri ght Arm] 98/60 105/64 108/91 H Pulse Oximetry 99 96 Oxygen Delivery Me thod Room Air Room Air 01/01/24 22:40 01/02/24 01:40 01/02/24 07:28 Temperature 98.0 F 97.8 F Pulse Rate [Right Pulse Oximeter] 103 H 106 H 74 Respiratory Rate 20 14 Blood Pressure [Ri ght Arm] 103/65 86/44 L Pulse Oximetry 99 99 Oxygen Delivery Me thod Room Air Room Air 01/02/24 07:30 01/02/24 07:30 01/02/24 07:30 Temperature Pulse Rate [Right Pulse Oximeter] 110 H 110 H 114 H Respiratory Rate 14 Blood Pressure [Ri ght Arm] 121/75 121/75 Pulse Oximetry Oxygen Delivery Me thod 01/02/24 07:31 01/02/24 11:00 Temperature 97.8 F Pulse Rate [Right Pulse Oximeter] 114 H 105 H Respiratory Rate 12 Blood Pressure [Ri ght Arm] 133/98 H 128/79 Pulse Oximetry 98 Oxygen Delivery Me thod Room Air DS: Data Data Completed and Pending Labs on day of discharge: Labs from last 24 hours 01/02/24 01/01/24 01/01/24 06:02 22:08 21:35 WBC 2.59 L 2.64 L RBC 3.05 L 3.13 L Hgb 9.9 L 10.1 L Hct 30.0 L 30.8 L MCV 98 98 MCH 33 32 MCHC 33 33 RDW Coeff of Vielka 13.5 13.5 Plt Count 58 L 67 L Neut % (Auto) 56.7 59.5 Lymph % (Auto) 23.6 22.7 [place] % (Auto) 16.6 H 16.7 H Eos % (Auto) 1.5 1.1 Baso % (Auto) 0.4 0.0 Neut # (Auto) 1.50 L 1.60 L Lymph # (Auto) 0.60 L 0.60 L [place] # (Auto) 0.40 0.40 Eos # (Auto) 0.00 0.00 Baso # (Auto) 0.00 0.00 Abs Immat Gran (auto) 0.00 0.00 Imm/Tot Granulo (auto) 1.2 0.0 Sodium 135 Potassium 3.7 Chloride 105 Carbon Dioxide 26 Anion Gap 4 L BUN 11 Creatinine 0.6 Estimated Creat Clear 38.44 Estimated GFR 94 Glucose 106 Lactate 1.4 Calcium 8.1 L Troponin I < 0.01 L NT-Pro-B Natriuret Pep 7880 Stl C. diff Tox B Gene Stl C. diff [id number] 01/01/24 16:16 WBC RBC Hgb Hct MCV MCH MCHC RDW Coeff of Vielka Plt Count Neut % (Auto) Lymph % (Auto) [place] % (Auto) Eos % (Auto) Baso % (Auto) Neut # (Auto) Lymph # (Auto) [place] # (Auto) Eos # (Auto) Baso # (Auto) Abs Immat Gran (auto) Imm/Tot Granulo (auto) Sodium Potassium Chloride Carbon Dioxide Anion Gap BUN Creatinine Estimated Creat Clear Estimated GFR Glucose Lactate Calcium Troponin I NT-Pro-B Natriuret Pep Stl C. diff Tox B Gene Negative Stl C. diff [id number] PRESUMPTIVE NEGATIVE Discharge Plan Discharge Disposition: Home, Self-Care Date of Admission: 12/31/23 21:36 Attending Provider on Discharge: Emilia Harrison Primary Care Provider: Nellie Bear Condition: Improved Anticipated Discharge Date/Time: 01/02/24 14:06 Discharge Medications: Continued venlafaxine 75 mg capsule,extended release 24hr 75 mg PO DAILY doxycycline hyclate 100 mg capsule 100 mg PO BID trazodone 50 mg tablet 50 - 150 mg PO QPM metoprolol succinate 100 mg tablet extended release 24 hr 100 mg PO DAILY venlafaxine 150 mg capsule,extended release 24hr 300 mg PO DAILY levothyroxine 88 mcg tablet 88 mcg PO DAILY pantoprazole 40 mg tablet,delayed release (DR/EC) 40 mg PO DAILY pramipexole 0.125 mg tablet 0.125 mg PO 3XD lisinopril 5 mg tablet 7.5 mg PO DAILY sumatriptan succinate 6 mg/0.5 mL pen injector subcut escitalopram oxalate 20 mg tablet 30 mg PO DAILY rosuvastatin 10 mg tablet 10 mg PO DAILY pregabalin 50 mg capsule 50 mg PO 3XD [place] 45-105 mg tablet,IR,delayed rel,biphasic 1 tab PO BID Held torsemide 20 mg tablet 20 mg PO DAILY Hold Instructions: Resume on 01/16/24. Hold until follow up with PCP estradiol 0.01 % (0.1 mg/gram) cream vaginal Hold Instructions: Resume on 01/16/24. Hold until you follow up with PCP and can resume your anticoagulation Eliquis 5 mg tablet 5 mg PO BID Hold Instructions: Resume on 01/16/24. Hold until follow up with PCP to follow your labs Discharge Orders: Discharge Order (Routine); Ordered 01/02/24 Ordered By: Emilia Harrison Patient Education: Gastroenteritis (DC) Additional Instructions: Follow up with PCP in 1 week Activity Level: No Restrictions Discharge Diet: Other Diet Detail: BRAT diet until feeling better Follow Up Appointments: Provider,Not a Local [Referring] - Nellie Bear MD [Primary Care Provider] - Forms: D[employer] Info Instructions
--- NOTE | 2024-01-02 15:15 | PC.NURSE ---
Discharge: Patient pleasant and cooperative. Patient vitally stable, lungs clear, BS WNL, IV removed, catheter intact. Patient denies pain and nausea, independent in room. Patient tolerating regular diet. Patient urinating and had a couple BM's no blood seen in stool. Patient signed belongings sheet and discharge form, with no further questions regarding discharge. Patient left the floor by wheelchair to home at [facility] at 1511.
== END 2024-01-02 15:11 | disposition home or self-care (01) ==
LOC: ED 21:19 → MEDSURG 21:38
PROVIDERS: Family Medicine; Admitting Provider Family Medicine; Emergency Provider Family Medicine; PCP Family Medicine; Visit Provider Family Medicine
DX: K52.9 Noninfective gastroenteritis and colitis, unspecified (principal); E86.0 Dehydration; R74.02 Elevation of levels of lactic acid dehydrogenase [LDH]; D69.6 Thrombocytopenia, unspecified; K76.0 Fatty (change of) liver, not elsewhere classified; D64.9 Anemia, unspecified; D61.818 Other pancytopenia; I34.0 Nonrheumatic mitral (valve) insufficiency; R07.9 Chest pain, unspecified; R11.2 Nausea with vomiting, unspecified; R53.1 Weakness; R53.83 Other fatigue; K21.9 Gastro-esophageal reflux disease without esophagitis; L71.9 Rosacea, unspecified; F32.A Depression, unspecified; E03.9 Hypothyroidism, unspecified; E78.5 Hyperlipidemia, unspecified; I10 Essential (primary) hypertension; Z87.81 Personal history of (healed) traumatic fracture; Z86.2 Personal history of diseases of the blood and blood-forming organs and certain disorders involving the immune mechanism; Z90.49 Acquired absence of other specified parts of digestive tract; Z90.411 Acquired partial absence of pancreas; Z98.890 Other specified postprocedural states; Z66 Do not resuscitate
CPT/HCPCS: 36415; 51798; 74177; 80048; 80053; 83605; 83735; 83880; 84484; 85025; 85027; 86140; 87045; 87046; 87427; 87493; 87631; 93005; 94761; 96361; 96374; 96376; 99284; 99285; A9270; G0378; J2405; J7030; J7120; Q9967

== ENCOUNTER 2024-05-13 09:14 | Emergency (ER) | payer MEDICARE, OTHER, SELFPAY ==
[2024-05-13 09:17] VITALS: BP 114/67; PULSE 78; RESP 18; TEMP 36.4; O2SAT 98; BMI 28.0
--- NOTE | 2024-05-13 09:23 | CRLHL7_ITS ---
For Patients: As a result of the Century Cures Act, medical imaging exams and procedure reports are released immediately into your electronic medical record. You may view this report before your referring provider. If you have questions, please contact your health care provider. INDICATION: Fall. Patient on Eliquis. TECHNIQUE: Head CT without contrast. COMPARISON: None. FINDINGS: CSF spaces: Within normal limits for age. Brain parenchyma and extra-axial spaces: There are nonspecific low attenuation white matter changes consistent with chronic microvascular disease. No sign of mass, hemorrhage, or midline shift. Skull base and calvarium: The visualized paranasal sinuses and mastoid air cells demonstrate no acute or significant findings. The visualized orbits are grossly unremarkable. No skull fractures. Partially visualized cervical fixation. IMPRESSION: No acute or significant findings. Please note that all CT scans at this facility use dose modulation, iterative reconstruction, and/or weight-based dosing when appropriate to reduce radiation dose to as low as reasonably achievable. Dictated by Davey Lee MD @ 05/13/2024 9:54:45 AM (Electronically Signed)
--- NOTE | 2024-05-13 10:07 | ED_ITS ---
HPI - Head Injury General Date Seen: 05/13/24 Chief complaint: Head Injury/Pain Stated complaint: fall - hit head *Eliquis Time Seen by Provider: 05/13/24 09:51 Source: patient Mode of arrival: ambulatory Limitations: no limitations History of Present Illness HPI Narrative: Patient is a very nice 74-year-old lady who presents here ambulatory for evaluation after a fall that occurred this morning at home. She turned too fast she tells me which is a problem, felt a little dizzy and then fell striking the right side of her body and head, on a table. Does take Eliquis in this worried her. There is no history of loss of conscious she was able to get up rate away. She has a little bit of pain in her right elbow, but full range of motion a little bit a numbness that comes down into the 4th and 5th fingers of her hand. She is also slightly worried about her neck, she has a history of 7 previous surgeries on her neck, but has no pain that is new in her neck at all or any problem. MD Complaint: head injury, head pain and fall Onset (ago): minute(s) Mechanism of Injury: fall Place: home Loss of Consciousness: no Location of injury: frontal Severity: mild Radiation: none Other Injuries: upper extremity Context: other anticoagulant use Associated symptoms: denies other symptoms Related Data Home Medications ?Medication ?Instructions ?Recorded ?Confirmed apixaban 5 mg tablet (Eliquis) 5 mg PO BID 06/12/23 05/07/24 dextromethorphan IR 45 1 tab PO BID 06/12/23 05/07/24 mg-bupropion ER 105 mg biphasic tablet ([facility]) doxycycline hyclate 100 mg capsule 100 mg PO BID 06/12/23 05/07/24 escitalopram oxalate 20 mg tablet 30 mg PO DAILY 06/12/23 05/07/24 estradiol 0.01% (0.1 mg/gram) vaginal 06/12/23 05/07/24 vaginal cream levothyroxine 88 mcg tablet 88 mcg PO DAILY 06/12/23 05/07/24 lisinopril 5 mg tablet 7.5 mg PO DAILY 06/12/23 05/07/24 metoprolol succinate 100 mg 100 mg PO DAILY 06/12/23 05/07/24 tablet,extended release 24 hr pantoprazole 40 mg tablet,delayed 40 mg PO DAILY 06/12/23 05/07/24 release pramipexole 0.125 mg tablet 0.125 mg PO 3XD 06/12/23 05/07/24 pregabalin 50 mg capsule 50 mg PO 3XD 06/12/23 05/07/24 rosuvastatin 10 mg tablet 10 mg PO DAILY 06/12/23 05/07/24 sumatriptan succinate 6 mg/0.5 mL mg subcut 06/12/23 05/07/24 subcutaneous pen injector torsemide 20 mg tablet 20 mg PO DAILY 06/12/23 05/07/24 trazodone 50 mg tablet 50 - 150 mg PO QPM 06/12/23 05/07/24 venlafaxine 150 mg 300 mg PO DAILY 06/12/23 05/07/24 capsule,extended release 24 hr venlafaxine 75 mg capsule,extended 75 mg PO DAILY 06/12/23 05/07/24 release 24 hr betamethasone dipropionate 0.05 % applic topical 05/07/24 05/07/24 topical cream cholecalciferol (vitamin D3) 25 25 mcg PO QDAY 05/07/24 05/07/24 mcg (1,000 unit) capsule cranberry 500 mg capsule 500 mg PO BID 05/07/24 05/07/24 metronidazole 0.75 % topical cream applic topical 05/07/24 05/07/24 ondansetron HCl 4 mg tablet mg PO 05/07/24 05/07/24 rizatriptan 10 mg tablet mg PO 05/07/24 05/07/24 triamcinolone acetonide 0.1 % applic topical 05/07/24 05/07/24 topical cream valacyclovir 1 gram tablet 1,000 mg PO BID 05/07/24 05/07/24 Allergies Allergy/AdvReac Type Severity Reaction Status Date / Time amoxicillin Allergy Unknown Verified 05/07/24 18:18 nickel Allergy Unknown Verified 05/07/24 18:18 Penicillins Allergy Unknown Verified 05/07/24 18:18 butorphanol Allergy Verified 05/07/24 18:18 [place] And Derivatives Allergy Verified 05/07/24 18:19 codeine Allergy Verified 05/07/24 18:18 lactase [From Dairy Aid] Allergy Verified 05/07/24 18:18 morphine Allergy Verified 05/07/24 18:18 nuts Allergy Uncoded 05/07/24 18:18 Review of Systems Status of ROS: Reports: 10 or more systems reviewed and unremarkable except as noted in History and below PFSH PFS Medical History Hypothyroidism ?E03.9 - Hypothyroidism, unspecified (ICD-10) History of thrombocytopenia ?Z86.2 - Personal history of diseases of the blood and blood-forming organs and certain disorders involving the immune mechanism (ICD-10) Breast cancer ?C50.919 - Malignant neoplasm of unspecified site of unspecified female breast (ICD-10) Hyperlipidemia ?E78.5 - Hyperlipidemia, unspecified (ICD-10) Degenerative disc disease Restless legs ?G25.81 - Restless legs syndrome (ICD-10) Depression ?F32.A - Depression, unspecified (ICD-10) Atrial fibrillation ?I48.91 - Unspecified atrial fibrillation (ICD-10) Mitral regurgitation ?I34.0 - Nonrheumatic mitral (valve) insufficiency (ICD-10) Surgical History Status post ORIF of fracture of ankle ?Z98.890 - Other specified postprocedural states (ICD-10) ?Z87.81 - Personal history of (healed) traumatic fracture (ICD-10) H/O endoscopic sinus surgery ?Z98.890 - Other specified postprocedural states (ICD-10) History of cholecystectomy ?Z90.49 - Acquired absence of other specified parts of digestive tract (ICD- 10) H/O cervical spine surgery ?Z98.890 - Other specified postprocedural states (ICD-10) S/P lumpectomy, left breast ?Z98.890 - Other specified postprocedural states (ICD-10) Previous back surgery ?Z98.890 - Other specified postprocedural states (ICD-10) 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 . Daughter Cassidy is healthcare power of private branch exchange service advisor. Code status is DNR. She does not smoke. She does not drink alcohol What is your current living situation?: I presently have a place to live Problems where you live: no known problems Problems where you live details: N/A In the past 12 months, utilities in danger of being shut off: no In past 12 months, lack of transportation kept you from medical appts, meetings, work, or getting things needed for daily living: yes In the past 12 mos, have been you worried that your food would run out before you had money to buy more?: never true In the past 12 mos, the food you bought just didn't last and you didn't have money to buy more?: never true Highest level of school completed/degree received: Master's degree Smoking Status: Never smoker Do you use any of these nicotine containing products: None Second hand tobacco smoke exposure: No How often do you have a drink containing alcohol: never AUDIT-C Alcohol total score: 0 Non-prescribed substance use: denies use Caffeine: No How often does anyone, including family, friends and others, physically hurt you : never How often does anyone, including family, friends and others, insult or talk down to you: never How often does anyone, including family, friends and others, threaten you with harm: never How often does anyone, including family, friends and others, scream or curse at you: never service: No Exam Narrative: Exam Narrative: On examination she is delightful, she is in room 4 speaking to me normally I find her actually listening to her S music when I walk in the room. Her pupils are equal round reactive to light, they track normally with absence of nystagmus or TMs are normal she is a little boy bump on the right the frontal region. There is no depression or nose acute bleeding, or hematoma noted. Her neck has range of motion from 6 cm through till 15 cm, side flexion is 10? bilaterally and rotation to the right is limited to 40, into the left she can come 60, scars well healed over the back of her neck, she has had removal some of her spinous processes there. No tenderness to palpation. And she says chronically this is which she feels like. She is able to stand for me in bear weight no problem in the room. Her right elbow has full range of motion of flexion extension supination pronation, there is a little bruise over the lateral part of her right elbow. Her protective officer strength are normal bilaterally, wrist dorsiflexion palmar flexion side flexion are all normal. Pulses are normal. She has a li ttle bit altered over the right 4th and 5th area of her hand, down the lateral part of her hand corresponding to her ulnar nerve. Which is likely been contused. Finger abduction is normal in her right hand. Const: Vital Signs, click to edit/add: Vital Signs - 24 hr 05/13/24 09:17 Temperature 97.6 F Pulse Rate [Right Pulse Oximeter] 78 Respiratory Rate 18 Blood Pressure [Ri ght Upper Arm] 114/67 Pulse Oximetry 98 Oxygen Delivery Me thod Room Air Documenting provider has reviewed patient's vital signs: yes Course Vital Signs Vital signs: Initial Vital Signs Temperature 97.6 F 05/13/24 09:17 Temperature Source Temporal Artery Scan 05/13/24 09:17 Pulse Rate 78 05/13/24 09:17 Respiratory Rate 18 05/13/24 09:17 Blood Pressure 114/67 05/13/24 09:17 Blood Pressure Mean 82 05/13/24 09:17 Blood Pressure Position Sitting 05/13/24 09:17 Pulse Oximetry 98 05/13/24 09:17 Oxygen Delivery Method Room Air 05/13/24 09:17 Vital Signs Temperature 97.6 F 05/13/24 09:17 Pulse Rate 78 05/13/24 09:17 Respiratory Rate 18 05/13/24 09:17 Blood Pressure 114/67 05/13/24 09:17 Pulse Oximetry 98 05/13/24 09:17 Oxygen Delivery Method Room Air 05/13/24 09:17 Temperature 97.6 F 05/13/24 09:17 Pulse Rate 78 05/13/24 09:17 Respiratory Rate 18 05/13/24 09:17 Blood Pressure 114/67 05/13/24 09:17 Pulse Oximetry 98 05/13/24 09:17 Oxygen Delivery Method Room Air 05/13/24 09:17 MDM - Head Injury MDM Narrative Medical decision making narrative: Life-threatening differential diagnosis is considered include: Subarachnoid hemorrhage, subdural hemorrhage, epidural hemorrhage. Other differential diagnosis considered include concussion, closed head injury, or neck fracture. I reviewed her CT scan, and also the radiology read. There is no evidence of any acute changes bleeding. Her range of motion of her elbow was fine. I do believe she has contused her ulnar nerve which I think will improve with time I discussed with her. Ice Tylenol and rest, and avoidance of further falls would be swift. I do not think she needs to be monitored longer than this. She is to come back if signs and symptoms of worsening which we discussed. Medical Records Attestation: I reviewed the patient's medical records. Imaging Data CT scan - head: Attestation: I have reviewed the pertinent imaging results. My impression: No acute changes noted on CT. Correlated with radiology report. Radiologist's impression: Patient: DESTINEE THOMPSON Facility:?[facility] Patient ID:?[id number] Site Patient ID:?[id number]. Site :?[id number] Study:?CT-Head WITHOUT-05/13/2024 9:41:58 AM Ordering Physician:?PROVIDER TEMP Final Report: INDICATION: Fall. Patient on Eliquis. TECHNIQUE: Head CT without contrast. COMPARISON: None. FINDINGS: CSF spaces: Within normal limits for age. Brain parenchyma and extra-axial spaces: There are nonspecific low attenuation white matter changes consistent with chronic microvascular disease. No sign of mass, hemorrhage, or midline shift. Skull base and calvarium: The visualized paranasal sinuses and mastoid air cells demonstrate no acute or significant findings. The visualized orbits are grossly unremarkable. No skull fractures. Partially visualized cervical fixation. IMPRESSION: No acute or significant findings. Please note that all CT scans at this facility use dose modulation, iterative reconstruction, and/or weight-based dosing when appropriate to reduce radiation dose to as low as reasonably achievable. Dictated by Davey Lee MD @ 05/13/2024 9:54:45 AM (Electronic Signature) Discharge Plan Discharge Clinical Impression: Closed head injury, Contusion of elbow, right, Anticoagulant long-term use Patient Disposition: Home, Self-Care Condition: Stable Instructions: Head Injury (DC), Contusion in Adults (ED), Safe Use of Antic oagulants (ED), Blood Thinners (ED) Additional Instructions: Home, rest, use of ice on your right elbow, he can also use it on your head. Tylenol 500 mg 3 times a day is recommended for the 1st 24 hours, avoidance of use of ibuprofen for the 1st 24 hours from her head injury. He should probably not be using ibuprofen anyway with the history of the Eliquis use. Good news is your head CT did not show any acute bleeding or any other significant abnormality. I do believe your numbness in your hand and arm, will improve with time, as the you have contused her elbow where the nerve lies around. Activity Level: Light activity Prescriptions: No Action triamcinolone acetonide 0.1 % cream topical ondansetron HCl 4 mg tablet PO rizatriptan 10 mg tablet PO betamethasone dipropionate 0.05 % cream topical metronidazole 0.75 % cream topical valacyclovir 1 gram tablet 1,000 mg PO BID cranberry 500 mg capsule 500 mg PO BID Rx Instructions: administer with meals cholecalciferol (vitamin D3) 25 mcg (1,000 unit) capsule 25 mcg PO QDAY venlafaxine 75 mg capsule,extended release 24hr 75 mg PO DAILY doxycycline hyclate 100 mg capsule 100 mg PO BID torsemide 20 mg tablet 20 mg PO DAILY Hold Instructions: Resume on 01/16/24. Hold until follow up with PCP trazodone 50 mg tablet 50 - 150 mg PO QPM metoprolol succinate 100 mg tablet extended release 24 hr 100 mg PO DAILY venlafaxine 150 mg capsule,extended release 24hr 300 mg PO DAILY levothyroxine 88 mcg tablet 88 mcg PO DAILY pantoprazole 40 mg tablet,delayed release (DR/EC) 40 mg PO DAILY pramipexole 0.125 mg tablet 0.125 mg PO 3XD lisinopril 5 mg tablet 7.5 mg PO DAILY estradiol 0.01 % (0.1 mg/gram) cream vaginal Hold Instructions: Resume on 01/16/24. Hold until you follow up with PCP and can resume your anticoagulation sumatriptan succinate 6 mg/0.5 mL pen injector subcut escitalopram oxalate 20 mg tablet 30 mg PO DAILY rosuvastatin 10 mg tablet 10 mg PO DAILY pregabalin 50 mg capsule 50 mg PO 3XD Eliquis 5 mg tablet 5 mg PO BID Hold Instructions: Resume on 01/16/24. Hold until follow up with PCP to follow your labs Auvelity 45-105 mg tablet,IR,delayed rel,biphasic 1 tab PO BID Follow Up/Referrals: Nellie Bear MD [Primary Care Provider] - Stand Alone Forms: [employer] Info Instructions
== END 2024-05-13 10:45 | disposition home or self-care (01) ==
LOC: ED 10:28
PROVIDERS: Emergency Provider Family Medicine; PCP Family Medicine
DX: S09.90XA Unspecified injury of head, initial encounter (principal); S50.01XA Contusion of right elbow, initial encounter; W18.30XA Fall on same level, unspecified, initial encounter; Z79.01 Long term (current) use of anticoagulants
CPT/HCPCS: 70450; 99284

== ENCOUNTER 2024-06-19 16:32 | Emergency (ER) | payer MEDICARE, OTHER, SELFPAY ==
[2024-06-19 16:41] VITALS: BP 95/60; PULSE 73; RESP 18; TEMP 36.7; O2SAT 99; BMI 28.0
[2024-06-19] MEDS: ONDANSETRON 2 MG/ML inj 4 MG IVP (16:58)
--- NOTE | 2024-06-19 17:00 | CRLHL7_ITS ---
For Patients: As a result of the Cures Act, medical imaging exams and procedure reports are released immediately into your electronic medical record. You may view this report before your referring provider. If you have questions, please contact your health care provider. INDICATION: Trauma. TECHNIQUE: CT cervical spine without contrast. COMPARISON: None. FINDINGS: Vertebrae: Prior C2-T2 posterior hardware fixation. Alignment is normal. There are no fractures or suspicious bony lesions. Discs and facet joints: There are diffuse degenerative changes in the disc spaces and facet joints. Extraspinal findings: Paraspinous soft tissues are unremarkable. IMPRESSION: 1. No sign of acute injury. 2. Multilevel degenerative spondylosis. Please note that all CT scans at this facility use dose modulation, iterative reconstruction, and/or weight-based dosing when appropriate to reduce radiation dose to as low as reasonably achievable. Dictated by Darren Colon MD @ 06/19/2024 5:36:38 PM (Electronically Signed)
--- NOTE | 2024-06-19 17:00 | CRLHL7_ITS ---
For Patients: As a result of the Century Cures Act, medical imaging exams and procedure reports are released immediately into your electronic medical record. You may view this report before your referring provider. If you have questions, please contact your health care provider. INDICATION: Fall. Headaches. TECHNIQUE: CT of the head without contrast. Coronal and sagittal reformats are included. COMPARISON: Head CT from 05/13/2024. FINDINGS: No acute intracranial hemorrhage. No CT evidence of acute infarction. No mass effect or midline shift. No hydrocephalus or extra-axial collections. Patchy white matter hypoattenuation, typical for chronic microvascular ischemic change. No acute osseous abnormalities. Mastoid air cells and paranasal sinuses are clear. Normal soft tissues. IMPRESSION: IMPRESSION: 1. No acute intracranial abnormalities. Please note that all CT scans at this facility use dose modulation, iterative reconstruction, and/or weight-based dosing when appropriate to reduce radiation dose to as low as reasonably achievable. Dictated by Joaquin Hendricks MD @ 06/19/2024 5:37:09 PM (Electronically Signed)
--- NOTE | 2024-06-19 17:18 | ED.GENADULT ---
HPI - General Adult General Date Seen: 06/19/24 Chief complaint: Headache/Migraine Stated complaint: Headache 4 days Time Seen by Provider: 06/19/24 16:35 Source: patient, RN notes reviewed and old records reviewed Mode of arrival: ambulatory Limitations: no limitations History of Present Illness HPI narrative: Patient is a 74-year-old woman who lives independently at a care facility. She is here with a friend for evaluation of a left-sided headache which she says has been there for at least 4 and half to 5 days. She does have a history of migraines, she is on a preventative injection which she gets every few months, and she says this generally controls her headaches well. She has had a couple falls in the past couple months, 1 in April after which she was seen here with a negative evaluation including CT, then another 1 on June 05. She says she does not believe she hit her head at that time, she is anticoagulated and generally comes in if she hits her head, but she does feel like she may be wrenched her neck and exacerbated some underlying neck problems. She says that most of her spine is fused but the very top of her cervical spine is not and she feels like it is maybe out of whack. She has taken her Imitrex a couple of times and it does improve the headache but she says she has not been able to get it to go away. She does note photophobia nausea, no vomiting. No focal neurologic complaints. No fevers or systemic complaints. Headache is typical of her migraines. Related Data Home Medications ?Medication ?Instructions ?Recorded ?Confirmed apixaban 5 mg tablet (Eliquis) 5 mg PO BID 06/12/23 05/07/24 dextromethorphan IR 45 1 tab PO BID 06/12/23 05/07/24 mg-bupropion ER 105 [facility]ic [facility] doxycycline hyclate 100 mg capsule 100 mg PO BID 06/12/23 05/07/24 escitalopram oxalate 20 mg tablet 30 mg PO DAILY 06/12/23 05/07/24 estradiol 0.01% (0.1 mg/gram) vaginal 06/12/23 05/07/24 vaginal cream levothyroxine 88 mcg tablet 88 mcg PO DAILY 06/12/23 05/07/24 lisinopril 5 mg tablet 7.5 mg PO DAILY 06/12/23 05/07/24 metoprolol succinate 100 mg 100 mg PO DAILY 06/12/23 05/07/24 tablet,extended release 24 hr pantoprazole 40 mg tablet,delayed 40 mg PO DAILY 06/12/23 05/07/24 release pramipexole 0.125 mg tablet 0.125 mg PO 3XD 06/12/23 05/07/24 pregabalin 50 mg capsule 50 mg PO 3XD 06/12/23 05/07/24 rosuvastatin 10 mg tablet 10 mg PO DAILY 06/12/23 05/07/24 sumatriptan succinate 6 mg/0.5 mL mg subcut 06/12/23 05/07/24 subcutaneous pen injector torsemide 20 mg tablet 20 mg PO DAILY 06/12/23 05/07/24 trazodone 50 mg tablet 50 - 150 mg PO QPM 06/12/23 05/07/24 venlafaxine 150 mg 300 mg PO DAILY 06/12/23 05/07/24 capsule,extended release 24 hr venlafaxine 75 mg capsule,extended 75 mg PO DAILY 06/12/23 05/07/24 release 24 hr betamethasone dipropionate 0.05 % applic topical 05/07/24 05/07/24 topical cream cholecalciferol (vitamin D3) 25 25 mcg PO QDAY 05/07/24 05/07/24 mcg (1,000 unit) capsule cranberry 500 mg capsule 500 mg PO BID 05/07/24 05/07/24 metronidazole 0.75 % topical cream applic topical 05/07/24 05/07/24 ondansetron HCl 4 mg tablet mg PO 05/07/24 05/07/24 rizatriptan 10 mg tablet mg PO 05/07/24 05/07/24 triamcinolone acetonide 0.1 % applic topical 05/07/24 05/07/24 topical cream valacyclovir 1 gram tablet 1,000 mg PO BID 05/07/24 05/07/24 Allergies Allergy/AdvReac Type Severity Reaction Status Date / Time amoxicillin Allergy Unknown Verified 05/07/24 18:18 nickel Allergy Unknown Verified 05/07/24 18:18 Penicillins Allergy Unknown Verified 05/07/24 18:18 butorphanol Allergy Verified 05/07/24 18:18 [place] And Derivatives Allergy Verified 05/07/24 18:19 codeine Allergy Verified 05/07/24 18:18 lactase [From Dairy Aid] Allergy Verified 05/07/24 18:18 morphine Allergy Verified 05/07/24 18:18 nuts Allergy Uncoded 05/07/24 18:18 Review of Systems Status of ROS: Reports: 10 or more systems reviewed and unremarkable except as noted in History and below [facility] Medical History Hypothyroidism ?E03.9 - Hypothyroidism, unspecified (ICD-10) History of thrombocytopenia ?Z86.2 - Personal history of diseases of the blood and blood-forming organs and certain disorders involving the immune mechanism (ICD-10) Breast cancer ?C50.919 - Malignant neoplasm of unspecified site of unspecified female breast (ICD-10) Hyperlipidemia ?E78.5 - Hyperlipidemia, unspecified (ICD-10) Degenerative disc disease Restless legs ?G25.81 - Restless legs syndrome (ICD-10) Depression ?F32.A - Depression, unspecified (ICD-10) Atrial fibrillation ?I48.91 - Unspecified atrial fibrillation (ICD-10) Mitral regurgitation ?I34.0 - Nonrheumatic mitral (valve) insufficiency (ICD-10) Surgical History Status post ORIF of fracture of ankle ?Z98.890 - Other specified postprocedural states (ICD-10) ?Z87.81 - Personal history of (healed) traumatic fracture (ICD-10) H/O endoscopic sinus surgery ?Z98.890 - Other specified postprocedural states (ICD-10) History of cholecystectomy ?Z90.49 - Acquired absence of other specified parts of digestive tract (ICD-10) H/O cervical spine surgery ?Z98.890 - Other specified postprocedural states (ICD-10) S/P lumpectomy, left breast ?Z98.890 - Other specified postprocedural states (ICD-10) Previous back surgery ?Z98.890 - Other specified postprocedural states (ICD-10) 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 . Daughter Cassidy is healthcare power of attorney general. Code status is DNR. She does not smoke. She does not drink alcohol What is your current living situation?: I presently have a place to live Problems where you live: no known problems Problems where you live details: N/A In the past 12 months, utilities in danger of being shut off: no In past 12 months, lack of transportation kept you from medical appts, meetings, work, or getting things needed for daily living: yes In the past 12 mos, have been you worried that your food would run out before you had money to buy more?: never true In the past 12 mos, the food you bought just didn't last and you didn't have money to buy more?: never true Highest level of school completed/degree received: Master's degree Smoking Status: Never smoker Do you use any of these nicotine containing products: None Second hand tobacco smoke exposure: No How often do you have a drink containing alcohol: never AUDIT-C Alcohol total score: 0 Non-prescribed substance use: denies use Caffeine: No How often does anyone, including family, friends and others, physically hurt you: never How often does anyone, including family, friends and others, insult or talk down to you: never How often does anyone, including family, friends and others, threaten you with harm: never How often does anyone, including family, friends and others, scream or curse at you: never service: No Exam Narrative: Exam Narrative: Vital signs as noted above. In general, an alert, nontoxic elderly woman. She is lying in a darkened room. Head: Normocephalic, atraumatic. Eyes: Pupils are equal reactive. Extraocular movements are full. Conjunctivae are normal. ENT: Mucous membranes are moist. Throat is normal. Neck: Supple without lymphadenopathy. Heart: Regular rate and rhythm. No murmur or rub. Lungs: Clear bilaterally. No increased work of breathing, crackles or wheezes. Abdomen: Soft and nontender. No organomegaly. Extremities: Well perfused. No edema. No calf tenderness. Pulses intact. Neurologic: Patient is alert and oriented to person and place. Speech is fluent. Face is symmetric. Moves all extremities equally. Affect: Normal. Skin: Warm and dry. Well perfused. Const: Vital Signs, click to edit/add: Vital Signs - 24 hr 06/19/24 16:41 Temperature 98.1 F Pulse Rate [Pulse Oximeter] 73 Respiratory Rate 18 Blood Pressure [Ri ght Upper Arm] 95/60 Pulse Oximetry 99 Documenting provider has reviewed patient's vital signs: yes Course Course ED Course: Plan at this time will be to try and improve her headache with some Benadryl and Zofran, will avoid Toradol given her anticoagulation for now. I think with recent falls and neck pain it is reasonable to scan her head and cervical spine. Otherwise, headache does sound likely migrainous. No findings to suggest that this is infectious, and patient is chronically anticoagulated making something like venous sinus thrombosis is unlikely. By my review, CT of the head and cervical spine were pretty unremarkable, no evidence of acute fracture dislocation in the neck and no acute hemorrhage in the head. Final radiology reads as follows:FINDINGS: Vertebrae: Prior C2-T2 posterior hardware fixation. Alignment is normal. There are no fractures or suspicious bony lesions. Discs and facet joints: There are diffuse degenerative changes in the disc spaces and facet joints. Extraspinal findings: Paraspinous soft tissues are unremarkable. IMPRESSION: 1. No sign of acute injury. 2. Multilevel degenerative spondylosis. FINDINGS: No acute intracranial hemorrhage. No CT evidence of acute infarction. No mass effect or midline shift. No hydrocephalus or extra-axial collections. Patchy white matter hypoattenuation, typical for chronic microvascular ischemic change. No acute osseous abnormalities. Mastoid air cells and paranasal sinuses are clear. Normal soft tissues. IMPRESSION: IMPRESSION: 1. No acute intracranial abnormalities. Reviewed this with the patient, she is relieved is her primary concern she said was that she might have bleeding in her brain. I did order Benadryl and Zofran, she refused the Benadryl saying last time she had it caused severe restless leg type symptoms. As such, she just had Zofran. I am hesitant to use Toradol given her anticoagulated status and history of gastritis, I am hesitant to use narcotics in general for migraine. She does feel like she has had some benefit in the past in situations like this with steroids, so we will do a trial of prednisone and we gave her an additional dose of IM sumatriptan here. Talked about trying an other Triptan, she already has Maxalt but says she has never had any luck with oral triptans. She does feel improved at this point, feels able to go home. Would recommend primary care follow-up if not improving, return at any time for acute worsening. Vital Signs Vital signs: Initial Vital Signs Temperature 98.1 F 06/19/24 16:41 Temperature Source Temporal Artery Scan 06/19/24 16:41 Pulse Rate 73 06/19/24 16:41 Respiratory Rate 18 06/19/24 16:41 Blood Pressure 95/60 06/19/24 16:41 Blood Pressure Mean 71 06/19/24 16:41 Pulse Oximetry 99 06/19/24 16:41 Vital Signs Temperature 98.1 F 06/19/24 16:41 Pulse Rate 73 06/19/24 16:41 Respiratory Rate 18 06/19/24 16:41 Blood Pressure 95/60 06/19/24 16:41 Pulse Oximetry 99 06/19/24 16:41 Temperature 98.1 F 06/19/24 16:41 Pulse Rate 73 06/19/24 16:41 Respiratory Rate 18 06/19/24 16:41 Blood Pressure 95/60 06/19/24 16:41 Pulse Oximetry 99 06/19/24 16:41 Medications Administered Medications: Discontinued Medications Generic Name Dose Route Start Last Admin Trade Name Freq PRN Reason Stop Dose Admin Diphenhydramine HCl 25 mg 06/19/24 16:59 06/19/24 18:03 Diphenhydramine 50 Mg/Ml Inj IVP 06/19/24 17:00 Not Given ONCE ONE Ondansetron HCl 4 mg 06/19/24 17:01 06/19/24 16:58 Ondansetron 2 Mg/Ml Inj IVP 06/19/24 17:02 4 mg ONCE ONE Administration Prednisone 60 mg 06/19/24 17:49 06/19/24 17:57 Prednisone 20 Mg Tablet PO 06/19/24 17:50 60 mg ONCE ONE Administration Sumatriptan Succinate 6 mg 06/19/24 17:49 06/19/24 18:00 Sumatriptan 6 Mg/0.5 Ml Inj SUBCUT 06/19/24 17:50 6 mg ONCE ONE Administration Medical Decision Making Lab Data Labs: Lab Results 06/19/24 Range/Units 16:56 SARS-CoV-2 (PCR) Negative SARS-CoV-2 (Negative) Influenza Type A (PCR) Negative PCR FLU A (Negative) Influenza Type B (PCR) Negative PCR FLU B (Negative) RSV (PCR) Negative PCR RSV (Negative) Discharge Plan Discharge Clinical Impression: Migraine Patient Disposition: Home, Self-Care Condition: Improved Instructions: Migraine Headache (ED) Additional Instructions: Continue current medications. Your imaging today does not show any evidence of bleeding in your brain or bony injury to your neck. Take prednisone as prescribed for the next few days. For acute worsening or new symptoms return to the ER at any time, otherwise see primary care if you do not feel that your gradually improving from this over the next few days. Prescriptions: No Action triamcinolone acetonide 0.1 % cream topical ondansetron HCl 4 mg tablet PO rizatriptan 10 mg tablet PO betamethasone dipropionate 0.05 % cream topical metronidazole 0.75 % cream topical valacyclovir 1 gram tablet 1,000 mg PO BID cranberry 500 mg capsule 500 mg PO BID Rx Instructions: administer with meals cholecalciferol (vitamin D3) 25 mcg (1,000 unit) capsule 25 mcg PO QDAY venlafaxine 75 mg capsule,extended release 24hr 75 mg PO DAILY doxycycline hyclate 100 mg capsule 100 mg PO BID torsemide 20 mg tablet 20 mg PO DAILY Hold Instructions: Resume on 01/16/24. Hold until follow up with PCP trazodone 50 mg tablet 50 - 150 mg PO QPM metoprolol succinate 100 mg tablet extended release 24 hr 100 mg PO DAILY venlafaxine 150 mg capsule,extended release 24hr 300 mg PO DAILY levothyroxine 88 mcg tablet 88 mcg PO DAILY pantoprazole 40 mg tablet,delayed release (DR/EC) 40 mg PO DAILY pramipexole 0.125 mg tablet 0.125 mg PO 3XD lisinopril 5 mg tablet 7.5 mg PO DAILY estradiol 0.01 % (0.1 mg/gram) cream vaginal Hold Instructions: Resume on 01/16/24. Hold until you follow up with PCP and can resume your anticoagulation sumatriptan succinate 6 mg/0.5 mL pen injector subcut escitalopram oxalate 20 mg tablet 30 mg PO DAILY rosuvastatin 10 mg tablet 10 mg PO DAILY pregabalin 50 mg capsule 50 mg PO 3XD Eliquis 5 mg tablet 5 mg PO BID Hold Instructions: Resume on 01/16/24. Hold until follow up with PCP to follow your labs [place]vel[place] 45-105 mg tablet,IR,delayed rel,biphasic 1 tab PO BID Follow Up/Referrals: Nellie Bear MD [Primary Care Provider] - Stand Alone Forms: [employer] Info Instructions
[2024-06-19 17:34] LABS: PCR FLU A Negative PCR FLU A (Negative); PCR FLU B Negative PCR FLU B (Negative); PCR RSV Negative PCR RSV (Negative); SARS PCR* Negative SARS-CoV-2 (Negative)
[2024-06-19] MEDS: predniSONE 20 MG TABLET 60 MG PO (17:57)
[2024-06-19] MEDS: SUMAtriptan 6 MG/0.5 ML INJ SUBCUT (18:00)
== END 2024-06-19 19:15 | disposition home or self-care (01) ==
PROVIDERS: Emergency Provider Emergency Medicine; PCP Family Medicine
DX: G43.909 Migraine, unspecified, not intractable, without status migrainosus (principal)
CPT/HCPCS: 70450; 72125; 87631; 96374; 96375; 99284; 99285; J2405; J3030; J7512

== ENCOUNTER 2024-10-08 16:22 | Outpatient (CLI) | payer MEDICARE, OTHER, SELFPAY | END 2024-10-08 16:23 | disposition home or self-care (01) | LOC: AMB 10-10 02:46 | PROVIDERS: PCP Family Medicine; Visit Provider Family Medicine | DX: S79.911A Unspecified injury of right hip, initial encounter (principal); W01.0XXA Fall on same level from slipping, tripping and stumbling without subsequent striking against object, initial encounter; Y92.002 Bathroom of unspecified non-institutional (private) residence as the place of occurrence of the external cause | CPT/HCPCS: A0425; A0427 ==

== ENCOUNTER 2024-10-08 16:42 | Inpatient (IN) | payer MEDICARE, OTHER, SELFPAY ==
[2024-10-08] VITALS (14 sets, daily range): BP systolic 109–144; BP diastolic 61–79; PULSE 59–61; RESP 18–22; TEMP 36.4–37.1; O2SAT 90–96; BMI 27.5; BMI 31.8
--- NOTE | 2024-10-08 16:56 | ED_ITS ---
HPI - Fall General Time Seen by Provider: 16:56 Date Seen: 10/08/24 Chief Complaint: Fall/Minor Trauma Stated Complaint: Fall Time Seen by Provider: 10/08/24 16:55 Source: patient and EMS Mode of arrival: EMS Limitations: no limitations History of Present Illness HPI Narrative: Unruly is a very pleasant 74-year-old female who is status post open heart surgery on August 20, has a history of anemia and thrombocytopenia, and depression who is brought to the emergency room by EMS after suffering a fall. She notes that she has been trying to take care of herself and went to do a daily weight but when she went to step off her scale instead of grabbing the side rail she grabbed the shelves which also fell on her. She fell straight backwards hitting her spine and injuring her right hip and left arm. She was placed in a C-collar by EMS and transported to the emergency room. She did not receive any pain medications on the way. Patient is anticoagulated on Eliquis. She notes pain in her left shoulder, left ribs and right hip pain. This is worsened by movement. She denies any difficulty breathing. She denies any prodromal symptoms. Related Data Home Medications ?Medication ?Instructions ?Recorded ?Confirmed apixaban 5 mg tablet (Eliquis) 5 mg PO BID 06/12/23 05/07/24 dextromethorphan IR 45 1 tab PO BID 06/12/23 05/07/24 mg-bupropion ER 105 mg biphasic tablet (Auvelity) doxycycline hyclate 100 mg capsule 100 mg PO BID 06/12/23 05/07/24 escitalopram oxalate 20 mg tablet 30 mg PO DAILY 06/12/23 05/07/24 estradiol 0.01% (0.1 mg/gram) vaginal 06/12/23 05/07/24 vaginal cream levothyroxine 88 mcg tablet 88 mcg PO DAILY 06/12/23 05/07/24 lisinopril 5 mg tablet 7.5 mg PO DAILY 06/12/23 05/07/24 metoprolol succinate 100 mg 100 mg PO DAILY 06/12/23 05/07/24 tablet,extended release 24 hr pantoprazole 40 mg tablet,delayed 40 mg PO DAILY 06/12/23 05/07/24 release pramipexole 0.125 mg tablet 0.125 mg PO 3XD 06/12/23 05/07/24 pregabalin 50 mg capsule 50 mg PO 3XD 06/12/23 05/07/24 rosuvastatin 10 mg tablet 10 mg PO DAILY 06/12/23 05/07/24 sumatriptan succinate 6 mg/0.5 mL mg subcut 06/12/23 05/07/24 subcutaneous pen injector torsemide 20 mg tablet 20 mg PO DAILY 06/12/23 05/07/24 trazodone 50 mg tablet 50 - 150 mg PO QPM 06/12/23 05/07/24 venlafaxine 150 mg 300 mg PO DAILY 06/12/23 05/07/24 capsule,extended release 24 hr venlafaxine 75 mg capsule,extended 75 mg PO DAILY 06/12/23 05/07/24 release 24 hr betamethasone dipropionate 0.05 % applic topical 05/07/24 05/07/24 topical cream cholecalciferol (vitamin D3) 25 25 mcg PO QDAY 05/07/24 05/07/24 mcg (1,000 unit) capsule cranberry 500 mg capsule 500 mg PO BID 05/07/24 05/07/24 metronidazole 0.75 % topical cream applic topical 05/07/24 05/07/24 ondansetron HCl 4 mg tablet mg PO 05/07/24 05/07/24 rizatriptan 10 mg tablet mg PO 05/07/24 05/07/24 triamcinolone acetonide 0.1 % applic topical 05/07/24 05/07/24 topical cream valacyclovir 1 gram tablet 1,000 mg PO BID 05/07/24 05/07/24 Allergies Allergy/AdvReac Type Severity Reaction Status Date / Time amoxicillin Allergy Unknown Verified 05/07/24 18:18 nickel Allergy Unknown Verified 05/07/24 18:18 Penicillins Allergy Unknown Verified 05/07/24 18:18 butorphanol Allergy Verified 05/07/24 18:18 Mcintosh And Derivatives Allergy Verified 05/07/24 18:19 codeine Allergy Verified 05/07/24 18:18 lactase (From Dairy Aid) Allergy Verified 05/07/24 18:18 morphine Allergy Verified 05/07/24 18:18 nuts Allergy Uncoded 05/07/24 18:18 Review of Systems Status of ROS: Reports: 10 or more systems reviewed and unremarkable except as noted in History and below Const: Denies: fever or chills Eyes: Denies: change in vision ENMT: Denies: neck pain or nasal congestion Cardio: Denies: chest pain or shortness of breath with exertion Resp: Denies: shortness of breath GI: Denies: abdominal pain : Denies: painful urination Musculo: Reports: back pain and extremity pain; Denies: neck pain Neuro: Reports: weakness in extremities and lack of coordination; Denies: headache or numbness in extremities PFSH [facility] Medical History Hypothyroidism ?E03.9 - Hypothyroidism, unspecified (ICD-10) History of thrombocytopenia ?Z86.2 - Personal history of diseases of the blood and blood-forming organs and certain disorders involving the immune mechanism (ICD-10) Breast cancer ?C50.919 - Malignant neoplasm of unspecified site of unspecified female breast (ICD-10) Hyperlipidemia ?E78.5 - Hyperlipidemia, unspecified (ICD-10) Degenerative disc disease Restless legs ?G25.81 - Restless legs syndrome (ICD-10) Depression ?F32.A - Depression, unspecified (ICD-10) Atrial fibrillation ?I48.91 - Unspecified atrial fibrillation (ICD-10) Mitral regurgitation ?I34.0 - Nonrheumatic mitral (valve) insufficiency (ICD-10) Surgical History Status post ORIF of fracture of ankle ?Z98.890 - Other specified postprocedural states (ICD-10) ?Z87.81 - Personal history of (healed) traumatic fracture (ICD-10) H/O endoscopic sinus surgery ?Z98.890 - Other specified postprocedural states (ICD-10) History of cholecystectomy ?Z90.49 - Acquired absence of other specified parts of digestive tract (ICD- 10) H/O cervical spine surgery ?Z98.890 - Other specified postprocedural states (ICD-10) S/P lumpectomy, left breast ?Z98.890 - Other specified postprocedural states (ICD-10) Previous back surgery ?Z98.890 - Other specified postprocedural states (ICD-10) 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. . Daughter Cassidy is healthc are power of state's attorney. Code status is DNR. She does not smoke. She does not drink alcohol What is your current living situation?: I presently have a place to live Problems where you live: no known problems Problems where you live details: N/A In the past 12 months, utilities in danger of being shut off: no In past 12 months, lack of transportation kept you from medical appts, meetings, work, or getting things needed for daily living: yes In the past 12 mos, have been you worried that your food would run out before you had money to buy more?: never true In the past 12 mos, the food you bought just didn't last and you didn't have money to buy more?: never true Highest level of school completed/degree received: Master's degree Smoking Status: Never smoker Do you use any of these nicotine containing products: None Second hand tobacco smoke exposure: No How often do you have a drink containing alcohol: never AUDIT-C Alcohol total score: 0 Non-prescribed substance use: denies use Caffeine: No How often does anyone, including family, friends and others, physically hurt you : never How often does anyone, including family, friends and others, insult or talk down to you: never How often does anyone, including family, friends and others, threaten you with harm: never How often does anyone, including family, friends and others, scream or curse at you: never service: No Health Related Social Needs: transportation insecurity (Z59.82) Exam Narrative: Exam Narrative: Patient is alert and oriented. She is somewhat anxious. She is mentating normally with a GCS of 15. EOM is full. Head is atraumatic. Normocephalic. Neck is supple. No midline cervical tenderness. The collar is removed and patient does not have any discomfort with rotation of the neck passive or active. She had some mild discomfort in the a septal area of her skull when she extended at the neck. She has no palpable tenderness over the left shoulder and is able to move her arm without difficulty. She has some mild tenderness over the left lateral ribcage. Heart is with regular rate and rhythm and lungs are clear bilaterally. Abdomen is soft nontender. Pelvis appears stable. Palpation down the spine shows mild discomfort over the upper aspect of the thoracic spine. No skin changes no step-offs palpated. No pain with lumbar spine. There is some bruising noted on the posterior lower buttock/upper posterior thigh. Legs appear to be the same length. She has 1+ peripheral edema with her stockings on at this time. She is able to move her ankles and feet without difficulty. Const: Vital Signs, click to edit/add: Vital Signs - 24 hr 10/08/24 16:51 Temperature 97.7 F Pulse Rate [Pulse Oximeter] 60 Respiratory Rate 18 Blood Pressure [Ri ght Upper Arm] 144/79 H Pulse Oximetry 96 Oxygen Delivery Me thod Room Air Documenting provider has reviewed patient's vital signs: yes Course Course ED Course: At this stage time patient denies any prodromal symptoms. Will check electrolytes urinalysis and a CBC. Will see the scanned her head and neck as well as chest abdomen pelvis given the fall today and multiple complaints of pain. Reevaluation(s) Reevaluation #1: Patient is requesting Tylenol and pramipexole all for her restless legs. This is ordered in the Dec. Reevaluation #2: Fortunately patient has no evidence of head injury, cervical spine fracture, rib fracture, right hip pain. She is now moving her right lower extremity with out significant difficulty. Her potassium does return low at 2.9. Patient now tells me that she has been having frequent falls. Most recently this was yesterday but she did not injure herself when this occurred. Vital Signs Vital signs: Initial Vital Signs Temperature 97.7 F 10/08/24 16:51 Temperature Source Temporal Artery Scan 10/08/24 16:51 Pulse Rate 60 10/08/24 16:51 Respiratory Rate 18 10/08/24 16:51 Blood Pressure 144/79 H 10/08/24 16:51 Blood Pressure Mean 100 10/08/24 16:51 Pulse Oximetry 96 10/08/24 16:51 Oxygen Delivery Method Room Air 10/08/24 16:51 Vital Signs Temperature 97.7 F 10/08/24 16:51 Pulse Rate 60 10/08/24 16:51 Respiratory Rate 18 10/08/24 16:51 Blood Pressure 144/79 H 10/08/24 16:51 Pulse Oximetry 96 10/08/24 16:51 Oxygen Delivery Method Room Air 10/08/24 16:51 Temperature 97.7 F 10/08/24 16:51 Pulse Rate 60 10/08/24 16:51 Respiratory Rate 18 10/08/24 16:51 Blood Pressure 144/79 H 10/08/24 16:51 Pulse Oximetry 96 10/08/24 16:51 Oxygen Delivery Method Room Air 10/08/24 16:51 Medications Administered Medications: Discontinued Medications Generic Name Dose Route Start Last Admin Trade Name Becki PRN Reason Stop Dose Admin Acetaminophen 1,000 mg 10/08/24 18:34 10/08/24 18:47 Acetaminophen 500 Mg Tablet PO 10/08/24 18:35 1,000 mg ONCE ONE Administration Pramipexole Dihydrochloride 0.125 mg 10/08/24 18:35 10/08/24 18:58 Pramipexole 0.125 Mg Tablet PO 10/08/24 18:36 0.125 mg ONCE ONE Administration MDM - Fall MDM Narrative Medical decision making narrative: 1. Frequent gxwym-jawjrflpylmndx-eipjrbj is currently living at [facility] but they do not have normal staffing levels tonight and the people who do normally care for her are off duty. I have significant concerns about patient going home and she is in agreement to stay. To likely is in need of PT OT consult. 2. Hypokalemia-will order potassium replacement. 3. Soft tissue injury-no evidence of fracture noted on CT 4. Anemia-hemoglobin tonight 9.2 with previous value of 9.8. 5. History CABG-patient seems to have normal O2 sats but some increased work of breathing. Bilateral small pleural effusions are noted. Have added a troponin, EKG and proBNP to the orders tonight. 6. Disposition-admit to the floor under the care of hospitalist Medical Records Attestation: I reviewed the patient's medical records. Lab Data Attestation: I reviewed the patient's lab results. Labs: Lab Results 12/24/24 12/24/24 Range/Units 17:20 19:07 WBC 6.72 (4.50-11.00) K/uL RBC 3.28 L (4.00-5.20) m/uL Hgb 9.2 L (12.0-16.0) gm/dL Hct 29.8 L (33.0-51.0) % MCV 91 (80-100) fL MCH 28 (26-34) pg MCHC 31 L (32-36) gm/dL RDW Coeff of Vielka 15.5 (11.5-15.5) % Plt Count 158 (140-440) K/uL Neut % (Auto) 71.4 (42.0-72.0) % Lymph % (Auto) 11.9 L (20-44) % [place] % (Auto) 14.0 H (0.0-11.0) % Eos % (Auto) 2.2 (0.0-7.0) % Baso % (Auto) 0.4 (0.0-3.0) % Neut # (Auto) 4.79 (1.7-7.0) K/uL Lymph # (Auto) 0.80 L (0.90-2.90) K/uL [place] # (Auto) 0.90 (0.00-0.90) K/UL Eos # (Auto) 0.15 (0.00-0.50) K/uL Baso # (Auto) 0.03 (0.00-0.30) K/uL Abs Immat Gran (auto) 0.01 (0.00-0.30) K/uL Imm/Tot Granulo (auto) 0.1 % INR 3.53 H (0.91-1.10) Sodium 134 L (135-149) mmol/L Potassium 2.9 L* (3.6-5.1) mmol/L Chloride 97 (96-114) mmol/L Carbon Dioxide 30 (20-32) mmol/L Anion Gap 7 (7-15) mEq/L BUN 21 (7-30) mg/dL Creatinine 1.0 (0.5-1.5) mg/dL Estimated Creat Clear 41.33 Estimated GFR 58 ml/min Glucose 98 (60-115) mg/dL Calcium 8.4 (8.4-10.6) mg/dL Total Bilirubin 0.9 (0.1-1.5) mg/dL AST 25 (12-35) U/L ALT 14 (4-35) U/L Alkaline Phosphatase 107 (40-150) U/L C-Reactive Protein 1.8 H (0.5-1.0) mg/dL Total Protein 5.3 L (6.0-8.3) g/dL Albumin 3.3 (3.3-5.0) g/dL Lab Acknowledgement Test Added POC Creatinine 1.2 (0.6-1.3) mg/dl Imaging Data Cervical spine CT: Attestation: I have reviewed the pertinent imaging results. My impression: No obvious fracture Radiologist's impression: Vertebrae: Alignment is normal. Near-complete cervical fixation. Orthopedic hardware appears to be intact without evidence of hardware fracture or loosening. Fusion of multiple cervical vertebral bodies. Diffuse demineralization. There are no definite fractures or suspicious bony lesions. Discs and facet joints: There are diffuse degenerative changes in the disc spaces and facet joints. Extraspinal findings: Paraspinous soft tissues are unremarkable. IMPRESSION: 1. No sign of acute injury. 2. Status post cervical fusion. Multilevel degenerative changes. CT scan - head: Attestation: I have reviewed the pertinent imaging results. Radiologist's impression: Brain parenchyma and extra-axial spaces: The hayes-white differentiation is normal. No sign of mass, hemorrhage, or midline shift. No extra-axial fluid collection. Skull base and calvarium: The visualized paranasal sinuses and mastoid air cells demonstrate no acute or significant findings. The visualized orbits are grossly unremarkable. No skull fractures. IMPRESSION: No acute intracranial process identified. Right hip x-ray: Attestation: I have reviewed the pertinent imaging results. My impression: No obvious fracture Radiologist's impression: Bones: Alignment is normal. No fractures or bone lesions. Joint spaces: Unremarkable. Soft tissues: Small heterotopic soft tissue ossification near the right greater trochanter are likely the result of an old injury. Impression: No sign of acute injury. CT Chest/Ab/Pelvis: Attestation: I have reviewed the pertinent imaging results. Radiologist's impression: diovascular structures: Cardiomegaly with coronary artery calcification. Thoracic aorta and main pulmonary artery are normal in caliber. Mediastinum and aman: No mass or adenopathy. Lungs and pleura: Small bilateral pleural effusions with basilar consolidations. No pneumothorax. Chest wall and axilla: Left chest wall generator pack. No mass or adenopathy. Bones: Upper thoracic posterior hardware fixation prior sternotomy. No acute fracture or dislocation. ABDOMEN AND PELVIS: Liver: Unremarkable. No sign of acute injury. Gallbladder and bile ducts: Cholecystectomy. Pancreas: Postsurgical changes about the pancreatic tail Spleen: Unremarkable. No sign of acute injury. Adrenal glands: Unremarkable. Kidneys: Unremarkable. GI tract: Moderate colonic stool burden. No bowel obstruction.. Vascular structures: Unremarkable. Mesenteric arteries are patent. Lymph nodes: Unremarkable. Miscellaneous: Unremarkable. No free air or significant free fluid. Pelvic Organs: Hysterectomy.. Bones: Prior posterior L5-S1 hardware fixation. IMPRESSION: No acute intrathoracic or intra-abdominal/pelvic abnormality. Small bilateral pleural effusions. Additional chronic findings as above. Discharge Plan Discharge Clinical Impression: Falls frequently, Physical deconditioning, Hypokalemia Patient Disposition: Admitted As Observation Condition: Improved
--- NOTE | 2024-10-08 17:03 | CRLHL7_ITS ---
For Patients: As a result of the Century Cures Act, medical imaging exams and procedure reports are released immediately into your electronic medical record. You may view this report before your referring provider. If you have questions, please contact your health care provider. INDICATION: Trauma. TECHNIQUE: CT chest, abdomen and pelvis acquired with 79 cc Isovue 370 IV contrast. COMPARISON: None. FINDINGS: CHEST: Cardiovascular structures: Cardiomegaly with coronary artery calcification. Thoracic aorta and main pulmonary artery are normal in caliber. Mediastinum and aman: No mass or adenopathy. Lungs and pleura: Small bilateral pleural effusions with basilar consolidations. No pneumothorax. Chest wall and axilla: Left chest wall generator pack. No mass or adenopathy. Bones: Upper thoracic posterior hardware fixation prior sternotomy. No acute fracture or dislocation. ABDOMEN AND PELVIS: Liver: Unremarkable. No sign of acute injury. Gallbladder and bile ducts: Cholecystectomy. Pancreas: Postsurgical changes about the pancreatic tail Spleen: Unremarkable. No sign of acute injury. Adrenal glands: Unremarkable. Kidneys: Unremarkable. GI tract: Moderate colonic stool burden. No bowel obstruction.. Vascular structures: Unremarkable. Mesenteric arteries are patent. Lymph nodes: Unremarkable. Miscellaneous: Unremarkable. No free air or significant free fluid. Pelvic Organs: Hysterectomy.. Bones: Prior posterior L5-S1 hardware fixation. IMPRESSION: No acute intrathoracic or intra-abdominal/pelvic abnormality. Small bilateral pleural effusions. Additional chronic findings as above. Please note that all CT scans at this facility use dose modulation, iterative reconstruction, and/or weight-based dosing when appropriate to reduce radiation dose to as low as reasonably achievable. Dictated by Darren Colon MD @ 10/08/2024 6:09:56 PM (Electronically Signed)
--- NOTE | 2024-10-08 17:03 | CRLHL7_ITS ---
For Patients: As a result of the Cures Act, medical imaging exams and procedure reports are released immediately into your electronic medical record. You may view this report before your referring provider. If you have questions, please contact your health care provider. Indication: Trauma, fall. Technique: Pelvis and right hip 3 views. Comparison: None. Findings: Bones: Alignment is normal. No fractures or bone lesions. Joint spaces: Unremarkable. Soft tissues: Small heterotopic soft tissue ossification near the right greater trochanter are likely the result of an old injury. Impression: No sign of acute injury. Dictated by Lloyd Hunter MD @ 10/08/2024 6:07:15 PM (Electronically Signed)
--- NOTE | 2024-10-08 17:03 | CRLHL7_ITS ---
For Patients: As a result of the Cures Act, medical imaging exams and procedure reports are released immediately into your electronic medical record. You may view this report before your referring provider. If you have questions, please contact your health care provider. INDICATION: Fall. TECHNIQUE: CT cervical spine without contrast. COMPARISON: None. FINDINGS: Vertebrae: Alignment is normal. Near-complete cervical fixation. Orthopedic hardware appears to be intact without evidence of hardware fracture or loosening. Fusion of multiple cervical vertebral bodies. Diffuse demineralization. There are no definite fractures or suspicious bony lesions. Discs and facet joints: There are diffuse degenerative changes in the disc spaces and facet joints. Extraspinal findings: Paraspinous soft tissues are unremarkable. IMPRESSION: 1. No sign of acute injury. 2. Status post cervical fusion. Multilevel degenerative changes. Please note that all CT scans at this facility use dose modulation, iterative reconstruction, and/or weight-based dosing when appropriate to reduce radiation dose to as low as reasonably achievable. Dictated by Sharon Oleary MD @ 10/08/2024 6:09:39 PM (Electronically Signed)
--- NOTE | 2024-10-08 17:03 | CRLHL7_ITS ---
For Patients: As a result of the Century Cures Act, medical imaging exams and procedure reports are released immediately into your electronic medical record. You may view this report before your referring provider. If you have questions, please contact your health care provider. INDICATION: Fall. TECHNIQUE: CT head without contrast. COMPARISON: June 19, 2024. FINDINGS: CSF spaces: Within normal limits for age. Brain parenchyma and extra-axial spaces: The hayes-white differentiation is normal. No sign of mass, hemorrhage, or midline shift. No extra-axial fluid collection. Skull base and calvarium: The visualized paranasal sinuses and mastoid air cells demonstrate no acute or significant findings. The visualized orbits are grossly unremarkable. No skull fractures. IMPRESSION: No acute intracranial process identified. Please note that all CT scans at this facility use dose modulation, iterative reconstruction, and/or weight-based dosing when appropriate to reduce radiation dose to as low as reasonably achievable. Dictated by Sharon Oleary MD @ 10/08/2024 6:01:12 PM (Electronically Signed)
[2024-10-08 17:26] LABS: Creatinine, Point-of-Care* 1.2 mg/dl (0.6-1.3)
[2024-10-08 17:53] LABS: Basophils Absolute Auto 0.03 K/uL (0.00-0.30); Basophils Percent Auto 0.4 % (0.0-3.0); Eosinophils Absolute Auto 0.15 K/uL (0.00-0.50); Eosinophils Percent Auto 2.2 % (0.0-7.0); Hematocrit 29.8 % (33.0-51.0); Hemoglobin* 9.2 gm/dL (12.0-16.0); Immature Granulocytes Abs Auto 0.01 K/uL (0.00-0.30); Immature Granulocytes Pct Auto 0.1 %; Lymphocytes Percent Auto 11.9 % (20-44); Mean Corpuscular HGB Conc 31 gm/dL (32-36); Mean Corpuscular Hemoglobin 28 pg (26-34); Mean Corpuscular Volume 91 fL (80-100); Neutrophils Absolute Auto 4.79 K/uL (1.7-7.0); Neutrophils Percent Auto 71.4 % (42.0-72.0); Platelet Count* 158 K/uL (140-440); RDW Coefficient of Variation % 15.5 % (11.5-15.5); Red Blood Count 3.28 m/uL (4.00-5.20); White Blood Count* 6.72 K/uL (4.50-11.00)
[2024-10-08 18:05] LABS: Slide Review Reflex No
[2024-10-08 18:17] LABS: Albumin* 3.3 g/dL (3.3-5.0); Chloride* 97 mmol/L (96-114)
[2024-10-08 18:18] LABS: Sodium* 134 mmol/L (135-149)
[2024-10-08 18:20] LABS: Est. Creatinine Clearance* 41.33; Estimated Glomerular Filt Rate 58 ml/min
[2024-10-08 18:21] LABS: Alanine Aminotransferase* 14 U/L (4-35); Alkaline Phosphatase* 107 U/L (40-150); Anion Gap 7 mEq/L (7-15); Aspartate Amino Transferase* 25 U/L (12-35); Bilirubin Total* 0.9 mg/dL (0.1-1.5); Blood Urea Nitrogen* 21 mg/dL (7-30); Calcium* 8.4 mg/dL (8.4-10.6); Carbon Dioxide* 30 mmol/L (20-32); Glucose* 98 mg/dL (60-115); INR 3.53 (0.91-1.10); Prothrombin Time 38.2 Seconds; Total Protein* 5.3 g/dL (6.0-8.3)
[2024-10-08 18:23] LABS: Potassium* 2.9 mmol/L (3.6-5.1)
[2024-10-08 18:24] LABS: C Reactive Protein* 1.8 mg/dL (0.5-1.0)
[2024-10-08] MEDS: ACETAMINOPHEN 500 MG TABLET 1000 MG PO (18:47)
[2024-10-08] MEDS: PRAMIPEXOLE 0.125 MG TABLET PO (18:58)
[2024-10-08] MEDS: POTASSIUM CHLORIDE 10 MEQ CAPSULE ER 40 MEQ PO ×2 (19:47→22:24)
[2024-10-08 20:04] LABS: NT Pro B Type NatriureticPept* 2630 pg/mL; Troponin I* 0.12 ng/mL (0.01-0.04)
--- NOTE | 2024-10-08 20:57 | PM.IMHP1 ---
Hospitalist- H&P: ARLETH History of Present Illness Date Seen: 10/08/24 Chief complaint: Fall Narrative: Unruly Lassiter is a 74 year old woman presents to the [facility] Emergency Department via EMS after suffering a fall today. She was hospitalized at [facility] from 08/20/2024 through 09/30/2024. She has longstanding history of atrial fibrillation was severe, symptomatic mitral regurgitation and tricuspid valve regurgitation, pulmonary hypertension, history of stage III breast cancer status post treatment in 2001, major depression, general anxiety disorder, hypothyroidism. Initially admitted for mitral valve replacement surgery. Underwent elective mitral valve replacement with 33 mm epic tissue valve, underwent tricuspid annuloplasty with 30 mm TriAd band, underwent Maze ablation and left atrial appendage ligation on 08/20/[address] Yepez. Patient had poor RV function and required blood products with CPB time of 196 minutes. Postop recovery was slow. Due to intermittent junctional rhythm EP was consulted and patient underwent permanent pacemaker implantation on 09/07/2024. Did have DCCV after. Went into AFib again on 09/26/2024. EP started amiodarone with scheduled outpatient follow-up. Struggled with ongoing delirium during her hospital stay. Slums score 23/30. Cognition improved slowly. Discharge on 09/30/2024 to assisted living facility with outpatient follow-up. Has had multiple falls since back at the assisted living facility, [facility], including the fall today. Patient lives independently. Attempted to weigh herself and lost her balance. Grabbed a shelf in front of her to stabilize herself but fell as the shelf fell also. Left-sided pain since then. In the emergency department physical exam was unremarkable. CT scan of the head, CT spine, chest abdomen and pelvis were all negative for acute fractures or other concerns. Hip x-ray also negative. Given patient's multiple falls and persistent weakness now with a sodium of 134 and a potassium of 2.9 and hemoglobin 9.8 it was determined that it would be safest for patient to be admitted for observation. Additionally efforts to transfer her back to [facility] was unsuccessful because they do not have staff sufficient to care for the patient at this time. Thus patient is admitted to our hospital for observation, for PT, OT, and social cirrhosis to assist with discharge disposition planning and assessments. Review of Systems Status of ROS: Reports: 6 or more systems reviewed and unremarkable except as noted in History and below [facility] Medical History Hypothyroidism ?E03.9 - Hypothyroidism, unspecified (ICD-10) History of thrombocytopenia ?Z86.2 - Personal history of diseases of the blood and blood-forming organs and certain disorders involving the immune mechanism (ICD-10) Breast cancer ?C50.919 - Malignant neoplasm of unspecified site of unspecified female breast (ICD-10) Hyperlipidemia ?E78.5 - Hyperlipidemia, unspecified (ICD-10) Degenerative disc disease Restless legs ?G25.81 - Restless legs syndrome (ICD-10) Depression ?F32.A - Depression, unspecified (ICD-10) Atrial fibrillation ?I48.91 - Unspecified atrial fibrillation (ICD-10) Mitral regurgitation ?I34.0 - Nonrheumatic mitral (valve) insufficiency (ICD-10) Surgical History Status post ORIF of fracture of ankle ?Z98.890 - Other specified postprocedural states (ICD-10) ?Z87.81 - Personal history of (healed) traumatic fracture (ICD-10) H/O endoscopic sinus surgery ?Z98.890 - Other specified postprocedural states (ICD-10) History of cholecystectomy ?Z90.49 - Acquired absence of other specified parts of digestive tract (ICD-10) H/O cervical spine surgery ?Z98.890 - Other specified postprocedural states (ICD-10) S/P lumpectomy, left breast ?Z98.890 - Other specified postprocedural states (ICD-10) Previous back surgery ?Z98.890 - Other specified postprocedural states (ICD-10) 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 . Daughter Cassidy is healthcare power of deputy commonwealth's attorney. Code status is DNR. She does not smoke. She does not drink alcohol What is your current living situation?: I presently have a place to live Problems where you live: no known problems Problems where you live details: n/a In the past 12 months, utilities in danger of being shut off: no In past 12 months, lack of transportation kept you from medical appts, meetings, work, or getting things needed for daily living: yes In the past 12 mos, have been you worried that your food would run out before you had money to buy more?: never true In the past 12 mos, the food you bought just didn't last and you didn't have money to buy more?: never true Highest level of school completed/degree received: Master's degree Smoking Status: Never smoker Do you use any of these nicotine containing products: None Second hand tobacco smoke exposure: No How often do you have a drink containing alcohol: never AUDIT-C Alcohol total score: 0 Non-prescribed substance use: denies use Caffeine: No How often does anyone, including family, friends and others, physically hurt you: never How often does anyone, including family, friends and others, insult or talk down to you: never How often does anyone, including family, friends and others, threaten you with harm: never How often does anyone, including family, friends and others, scream or curse at you: never service: No Health Related Social Needs: transportation insecurity (Z59.82) Meds Home Medications and Allergies Home Medications ?Medication ?Instructions ?Recorded ?Confirmed ?Type apixaban 5 mg tablet (Eliquis) 5 mg PO BID 06/12/23 05/07/24 History dextromethorphan IR 45 1 tab PO BID 06/12/23 05/07/24 History mg-bupropion ER 105 mg biphasic tablet (Auvelity) doxycycline hyclate 100 mg capsule 100 mg PO BID 06/12/23 05/07/24 History escitalopram oxalate 20 mg tablet 30 mg PO DAILY 06/12/23 05/07/24 History estradiol 0.01% (0.1 mg/gram) vaginal 06/12/23 05/07/24 History vaginal cream levothyroxine 88 mcg tablet 88 mcg PO DAILY 06/12/23 05/07/24 History lisinopril 5 mg tablet 7.5 mg PO DAILY 06/12/23 05/07/24 History metoprolol succinate 100 mg 100 mg PO DAILY 06/12/23 05/07/24 History tablet,extended release 24 hr pantoprazole 40 mg tablet,delayed 40 mg PO DAILY 06/12/23 05/07/24 History release pramipexole 0.125 mg tablet 0.125 mg PO 3XD 06/12/23 05/07/24 History pregabalin 50 mg capsule 50 mg PO 3XD 06/12/23 05/07/24 History rosuvastatin 10 mg tablet 10 mg PO DAILY 06/12/23 05/07/24 History sumatriptan succinate 6 mg/0.5 mL mg subcut 06/12/23 05/07/24 History subcutaneous pen injector torsemide 20 mg tablet 20 mg PO DAILY 06/12/23 05/07/24 History trazodone 50 mg tablet 50 - 150 mg PO QPM 06/12/23 05/07/24 History venlafaxine 150 mg 300 mg PO DAILY 06/12/23 05/07/24 History capsule,extended release 24 hr venlafaxine 75 mg capsule,extended 75 mg PO DAILY 06/12/23 05/07/24 History release 24 hr betamethasone dipropionate 0.05 % applic topical 05/07/24 05/07/24 History topical cream cholecalciferol (vitamin D3) 25 25 mcg PO QDAY 05/07/24 05/07/24 History mcg (1,000 unit) capsule cranberry 500 mg capsule 500 mg PO BID 05/07/24 05/07/24 History metronidazole 0.75 % topical cream applic topical 05/07/24 05/07/24 History ondansetron HCl 4 mg tablet mg PO 05/07/24 05/07/24 History rizatriptan 10 mg tablet mg PO 05/07/24 05/07/24 History triamcinolone acetonide 0.1 % applic topical 05/07/24 05/07/24 History topical cream valacyclovir 1 gram tablet 1,000 mg PO BID 05/07/24 05/07/24 History Allergies Allergy/AdvReac Type Severity Reaction Status Date / Time amoxicillin Allergy Unknown Verified 05/07/24 18:18 nickel Allergy Unknown Verified 05/07/24 18:18 Penicillins Allergy Unknown Verified 05/07/24 18:18 butorphanol Allergy Verified 05/07/24 18:18 Barton And Derivatives Allergy Verified 05/07/24 18:19 codeine Allergy Verified 05/07/24 18:18 lactase (From Dairy Aid) Allergy Verified 05/07/24 18:18 morphine Allergy Verified 05/07/24 18:18 nuts Allergy Uncoded 05/07/24 18:18 Exam Narrative: Exam Narrative: I examine the patient in the hospital emergency department. Appears comfortable no acute distress. Vision and hearing are adequate. Friendly, articulate, cooperative. Alert and oriented x3. External auditory canals are clear with tympanic membranes normal. Midline nasal septum. Eating and drinking independently. Oropharynx otherwise negative. Neck is supple. No head neck lymphadenopathy. Lungs fairly clear to auscultation save some decreased breath sounds in the bases. Heart tones with regular rhythm. Abdomen with active bowel sounds, soft, nontender. Extremities with trace edema pretibially bilaterally. No focal motor neurologic deficits. Skin is dry and intact. Const: Vital Signs, click to edit/add: Vital Signs - 24 hr 10/08/24 16:51 10/08/24 18:36 10/08/24 18:45 Temperature 97.7 F Pulse Rate 60 59 L Pulse Rate [Pulse Oximeter] 60 Respiratory Rate 18 20 Blood Pressure Blood Pressure [Le ft Arm] Blood Pressure [Ri ght Upper Arm] 144/79 H Pulse Oximetry 96 94 94 Oxygen Delivery Me thod Room Air Room Air Room Air 10/08/24 19:00 10/08/24 19:02 10/08/24 19:15 Temperature 98.8 F Pulse Rate 61 60 60 Pulse Rate [Pulse Oximeter] Respiratory Rate 22 Blood Pressure 121/62 Blood Pressure [Le ft Arm] Blood Pressure [Ri ght Upper Arm] Pulse Oximetry 94 94 93 Oxygen Delivery Me thod Room Air Room Air Room Air 10/08/24 19:30 10/08/24 19:31 10/08/24 19:45 Temperature Pulse Rate 59 L 60 60 Pulse Rate [Pulse Oximeter] Respiratory Rate 18 Blood Pressure 124/64 Blood Pressure [Le ft Arm] Blood Pressure [Ri ght Upper Arm] Pulse Oximetry 93 94 90 Oxygen Delivery Me thod Room Air Room Air Room Air 10/08/24 20:02 10/08/24 20:35 Temperature 98.3 F Pulse Rate Pulse Rate [Pulse Oximeter] 60 Respiratory Rate 20 Blood Pressure 111/66 Blood Pressure [Le ft Arm] 109/61 Blood Pressure [Ri ght Upper Arm] Pulse Oximetry 94 Oxygen Delivery Me thod Room Air Hospitalist - H&P: Result Labs Labs: Short CBC 10/08/24 Range/Units 17:20 WBC 6.72 (4.50-11.00) K/uL Hgb 9.2 L (12.0-16.0) gm/dL Hct 29.8 L (33.0-51.0) % Plt Count 158 (140-440) K/uL BMP 10/08/24 17:20 Sodium 134 L Potassium 2.9 L* Chloride 97 Carbon Dioxide 30 BUN 21 Creatinine 1.0 Glucose 98 Calcium 8.4 Cardiac Enzymes 10/08/24 Range/Units 17:20 Troponin I 0.12 H* (0.01-0.04) ng/mL Liver Function 10/08/24 Range/Units 17:20 Total Bilirubin 0.9 (0.1-1.5) mg/dL AST 25 (12-35) U/L ALT 14 (4-35) U/L Alkaline Phosphatase 107 (40-150) U/L Albumin 3.3 (3.3-5.0) g/dL ECG ECG interpretation date: 10/08/24 Interpretation: Atrial paced rhythm. Imaging CT Chest/Ab/Pelvis: Radiologist's impression: FINDINGS: CHEST: Cardiovascular structures: Cardiomegaly with coronary artery calcification. Thoracic aorta and main pulmonary artery are normal in caliber. Mediastinum and aman: No mass or adenopathy. Lungs and pleura: Small bilateral pleural effusions with basilar consolidations. No pneumothorax. Chest wall and axilla: Left chest wall generator pack. No mass or adenopathy. Bones: Upper thoracic posterior hardware fixation prior sternotomy. No acute fracture or dislocation. ABDOMEN AND PELVIS: Liver: Unremarkable. No sign of acute injury. Gallbladder and bile ducts: Cholecystectomy. Pancreas: Postsurgical changes about the pancreatic tail Spleen: Unremarkable. No sign of acute injury. Adrenal glands: Unremarkable. Kidneys: Unremarkable. GI tract: Moderate colonic stool burden. No bowel obstruction.. Vascular structures: Unremarkable. Mesenteric arteries are patent. Lymph nodes: Unremarkable. Miscellaneous: Unremarkable. No free air or significant free fluid. Pelvic Organs: Hysterectomy.. Bones: Prior posterior L5-S1 hardware fixation. IMPRESSION: No acute intrathoracic or intra-abdominal/pelvic abnormality. Small bilateral pleural effusions. Additional chronic findings as above. CT scan - head: Radiologist's impression: No acute intracranial process CT scan - cervical spine: Radiologist's impression: 1. No sign of acute injury. 2. Status post cervical fusion. Multilevel degenerative changes. Assessment and Plan Assessment and plan (1) Falls frequently: Problem comment: -increased weakness and falls status post open heart surgery 08/20/2024 -sr. social media & mobile manager consultation for discharge disposition planning Status: Acute (2) Physical deconditioning: Problem comment: -PT, OT consultation Status: Acute (3) Hypokalemia: Problem comment: -potassium supplementation, monitor Status: Acute (4) Anemia: Problem comment: -chronic, monitor Status: Acute (5) Anticoagulated with warfarin: Problem comment: -daily PT INR with pharmacy consultation for dosing while in hospital with goal of 2-3 Status: Acute (6) Post cardiotomy syndrome: Problem comment: -still has persistent small bilateral pleural effusions Status: Acute (7) Left-sided chest wall pain: Problem comment: -status post fall 10/08/2024 with negative radiographic assessments Status: Acute Plan 1. Reviewed impression, recommendations, plans with patient. Did discuss observation status which she is agreeable with. 2. Answered her questions are satisfaction. 3. Patient agreeable with above stated plans and recommendations. 4. She on hesitatingly requests DNR DNI resuscitation status and designates her daughter, Cassidy Becerril, as her decision maker in the event she is not able to make healthcare decisions on her own behalf. Total Time Spent Total Time Spent: 65 minute
[2024-10-08] MEDS: VENLAFAXINE ER 75 MG CAPSULE 150 MG PO (22:23)
[2024-10-08] MEDS: TRAZODONE HCL 50 MG TABLET PO (22:24)
[2024-10-08] MEDS: SODIUM CHLORIDE 0.9 % (FLUSH) 10 ML SYRINGE 5 ML IVF (22:25)
[2024-10-08] MEDS: ACETAMINOPHEN 325 MG TABLET 650 MG PO (23:26)
[2024-10-09] VITALS (12 sets, daily range): BP systolic 117–140; BP diastolic 59–72; PULSE 60–61; RESP 17–20; TEMP 36.5–36.8; O2SAT 92–98
[2024-10-09] MEDS: ONDANSETRON ODT 4 MG TAB PO ×4 (02:15→22:00)
[2024-10-09 05:42] LABS: Appearance Urine Clear (Clear); Bilirubin Urine Negative (Negative); Blood Urine Negative (Negative); Color Urine Yellow (Yellow); Glucose Urine Negative (Negative); Ketones Urine Negative (Negative); Leukocyte Esterase Urine Negative (Negative); Nitrite Urine Negative (Negative); Protein Urine Negative (Negative); Specific Gravity Urine <= 1.005 (1.000-1.030); Urobilinogen Urine 0.2 (0.2-1.0); pH Urine 5.5 (5.0-8.5)
[2024-10-09 05:55] LABS: RBC Urine 0-2 (0-2); WBC Urine 0-2 (0-5)
[2024-10-09] MEDS: OMEPRAZOLE 20 MG CAPSULE DR 40 MG PO (07:34)
[2024-10-09] MEDS: LEVOTHYROXINE 88 MCG TABLET PO (07:35)
[2024-10-09 07:38] LABS: Chloride* 99 mmol/L (96-114); Potassium* 3.5 mmol/L (3.6-5.1); Sodium* 136 mmol/L (135-149)
[2024-10-09 07:41] LABS: Anion Gap 8 mEq/L (7-15); Blood Urea Nitrogen* 21 mg/dL (7-30); Carbon Dioxide* 29 mmol/L (20-32); Creatinine* 0.9 mg/dL (0.5-1.5); Est. Creatinine Clearance* 36.12; Estimated Glomerular Filt Rate 66 ml/min; Glucose* 96 mg/dL (60-115); Phosphorus* 3.6 mg/dL (2.5-4.5)
[2024-10-09 07:42] LABS: Calcium* 8.5 mg/dL (8.4-10.6); Magnesium* 1.6 mg/dL (1.5-2.6)
[2024-10-09 07:52] LABS: Basophils Absolute Auto 0.04 K/uL (0.00-0.30); Basophils Percent Auto 0.6 % (0.0-3.0); Eosinophils Absolute Auto 0.17 K/uL (0.00-0.50); Eosinophils Percent Auto 2.6 % (0.0-7.0); Hematocrit 29.4 % (33.0-51.0); Hemoglobin* 8.9 gm/dL (12.0-16.0); Immature Granulocytes Abs Auto 0.01 K/uL (0.00-0.30); Immature Granulocytes Pct Auto 0.2 %; Lymphocytes Percent Auto 13.9 % (20-44); Mean Corpuscular HGB Conc 30 gm/dL (32-36); Mean Corpuscular Hemoglobin 28 pg (26-34); Mean Corpuscular Volume 91 fL (80-100); Monocytes Percent Auto 15.5 % (0.0-11.0); Neutrophils Absolute Auto 4.41 K/uL (1.7-7.0); Neutrophils Percent Auto 67.2 % (42.0-72.0); Platelet Count* 142 K/uL (140-440); RDW Coefficient of Variation % 15.6 % (11.5-15.5); Red Blood Count 3.22 m/uL (4.00-5.20); White Blood Count* 6.56 K/uL (4.50-11.00)
[2024-10-09 07:53] LABS: Slide Review Reflex No
[2024-10-09 09:15] LABS: INR 3.63 (0.91-1.10); Prothrombin Time 39.1 Seconds
[2024-10-09] MEDS: ESCITALOPRAM 10 MG TABLET 30 MG PO (09:30)
[2024-10-09] MEDS: VENLAFAXINE ER 75 MG CAPSULE 150 MG PO ×2 (09:30→21:57)
[2024-10-09] MEDS: AMIODARONE 200 MG TABLET PO (09:30)
[2024-10-09] MEDS: PRAMIPEXOLE 0.125 MG TABLET PO ×3 (09:30→21:58)
[2024-10-09] MEDS: TORSEMIDE 20 MG TABLET PO ×2 (09:30→13:34)
[2024-10-09] MEDS: DOXYCYCLINE HYCLATE 100 MG PO ×2 (09:30→21:58)
[2024-10-09] MEDS: ROSUVASTATIN CALCIUM 10 MG TABLET PO (09:30)
[2024-10-09] MEDS: LACTOBACILLUS ACIDOPHILUS 1 TABLET 1 TAB PO ×3 (09:31→19:52)
[2024-10-09] MEDS: ASPIRIN 81 MG TABLET EC PO (09:31)
[2024-10-09] MEDS: ACETAMINOPHEN 325 MG TABLET 650 MG PO ×3 (09:31→19:50)
[2024-10-09] MEDS: SODIUM CHLORIDE 0.9 % (FLUSH) 10 ML SYRINGE 5 ML IVF ×2 (09:32→21:59)
[2024-10-09] MEDS: VENLAFAXINE ER 75 MG CAPSULE PO (12:22)
[2024-10-09] MEDS: LIDOCAINE 5% PATCH 1 PATCH TRANSDERMA (13:34)
--- NOTE | 2024-10-09 14:43 | PC.NURSE ---
Pt alert and oriented. Pt had complaints of back pain; scheduled medications given. Pt up with SBA with walker and gait belt. Pt has a lidocaine patch to left hand on pinky and 4th finger to help with post-surgical pain. approved.?
--- NOTE | 2024-10-09 15:58 | P.IMPN_ITS ---
Progress Note: A&P Assessment and plan (1) Falls frequently: Problem details: -increased weakness and falls status post open heart surgery 08/20/2024 -social service liaison consultation for discharge disposition planning Status: Acute (2) Physical deconditioning: Problem details: -PT, OT consultation Status: Acute (3) Post cardiotomy syndrome: Problem details: -still has persistent small bilateral pleural effusions Status: Acute (4) Heart failure: Problem details: Ejection fraction of 50%. Status post mitral valve surgery. Patient appears to have mild volume overload with peripheral edema and bilateral pleural effusions. Pleural effusions may be residual from open-heart surgery 8 weeks ago. Status: Acute (5) Anemia: Problem details: -chronic, monitor Status: Acute (6) Anticoagulated with warfarin: Problem details: -daily PT INR with pharmacy consultation for dosing while in hospital with goal of 2-3 Status: Acute (7) Hypokalemia: Problem details: -potassium supplementation, monitor Status: Acute (8) Left-sided chest wall pain: Problem details: -status post fall 10/08/2024 with negative radiographic assessments Status: Acute (9) Pacemaker: Problem details: Currently in paced rhythm with a rate of 60 Status: Acute (10) Status post mitral valve replacement: Problem details: [facility] 08/20/2024 Status: Acute (11) Atrial fibrillation: Problem details: On anticoagulation and rate control. Currently paced rhythm of 60 Status: Acute (12) Discharge planning issues: Problem details: With frequent falls and high need for care may need rehab stay prior to returning to [facility] Status: Acute Plan Continue in hospital for evaluation management of weakness, falls, heart failure. Therapy to evaluate functional status. Mixer [employer] to evaluate for alternative place of care. Time Spent With Patient Total time spent: Total time spent today is 60 minutes in reviewing past medical records from [place], discussing with patient and other providers current health status and ongoing plan of care and disposition Subjective Date Seen: 10/09/24 Interval history: Unruly Lassiter is a 74 year old woman presents to the [facility] Emergency Department via EMS after suffering a fall today with a history of multiple recent falls. She was hospitalized at [facility] from 08/20/2024 through 09/30/2024. She has longstanding history of atrial fibrillation was severe, symptomatic mitral regurgitation and tricuspid valve regurgitation, pulmonary hypertension, history of stage III breast cancer status post treatment in 2001, major depression, general anxiety disorder, hypothyroidism. Initially admitted for mitral valve replacement surgery. Underwent elective mitral valve replacement with 33 mm epic tissue valve, underwent tricuspid annuloplasty with 30 mm TriAd band, underwent Maze ablation and left atrial appendage ligation on 08/20/[address] Yepez. Patient had poor RV function and required blood products with CPB time of 196 minutes. Postop recovery was slow. Due to intermittent junctional rhythm EP was consulted and patient underwent permanent pacemaker implantation on 09/07/2024. Did have DCCV after. Went into AFib again on 09/26/2024. EP started amiodarone with scheduled outpatient follow-up. Struggled with ongoing delirium during her hospital stay. Slums score 23/30. Cognition improved slowly. Discharge on 09/30/2024 to assisted living facility with outpatient follow-up. Is been difficult to arrange for outpatient therapy and other supports. Has had multiple falls since back at the assisted living facility, [facility], including the fall today. Patient lives independently. Attempted to weigh herself and lost her balance. Grabbed a shelf in front of her to stabilize herself but fell as the shelf fell also. Left-sided pain since then. In the emergency department physical exam was unremarkable. CT scan of the head, CT spine, chest abdomen and pelvis were all negative for acute fractures or other concerns. Hip x-ray also negative. Given patient's multiple falls and persistent weakness now with a sodium of 134 and a potassium of 2.9 and hemoglobin 9.8 it was determined that it would be safest for patient to be admitted for observation. Additionally efforts to transfer her back to [facility] was unsuccessful because they do not have staff sufficient to care for the patient at this time. Thus patient is admitted to our hospital for observation, for PT, OT, and social cirrhosis to assist with discharge disposition planning and assessments. 10/09/2024: Patient reports that she is not had a fever, cold or cough. No chest pain. She reports she has been able to eat but has a poor appetite. No vomiting. Bowels are working. No urinary problems. She does report her weight is increasing and she is getting more leg edema. She has been taking her diuretics. She reports pain in her left 4th and 5th fingers which she has been told was from a nerve injury during surgery. Lidocaine patch is been used for this. Exam Narrative: Exam Narrative: She is alert and appears in no distress. She gives her own history. Oropharynx is normal. Neck is supple without mass or adenopathy. Respirations are clear to auscultation. Cardiovascular: S1, S2, regular rate and rhythm. Abdomen: Bowel sounds active. Abdomen is soft without tenderness or mass. Extremities with 3+ edema in both ankles Const: Vital Signs, click to edit/add: Vital Signs - 24 hr 10/08/24 16:51 10/08/24 18:36 10/08/24 18:45 Temperature 97.7 F Pulse Rate 60 59 L Pulse Rate [Pulse Oximeter] 60 Respiratory Rate 18 20 Blood Pressure Blood Pressure [Le ft Arm] Blood Pressure [Ri ght Upper Arm] 144/79 H Pulse Oximetry 96 94 94 Oxygen Delivery Me thod Room Air Room Air Room Air 10/08/24 19:00 10/08/24 19:02 10/08/24 19:15 Temperature 98.8 F Pulse Rate 61 60 60 Pulse Rate [Pulse Oximeter] Respiratory Rate 22 Blood Pressure 121/62 Blood Pressure [Le ft Arm] Blood Pressure [Ri ght Upper Arm] Pulse Oximetry 94 94 93 Oxygen Delivery Me thod Room Air Room Air Room Air 10/08/24 19:30 10/08/24 19:31 10/08/24 19:45 Temperature Pulse Rate 59 L 60 60 Pulse Rate [Pulse Oximeter] Respiratory Rate 18 Blood Pressure 124/64 Blood Pressure [Le ft Arm] Blood Pressure [Ri ght Upper Arm] Pulse Oximetry 93 94 90 Oxygen Delivery Me thod Room Air Room Air Room Air 10/08/24 20:02 10/08/24 20:26 10/08/24 20:35 Temperature 98.3 F Pulse Rate Pulse Rate [Pulse Oximeter] 60 Respiratory Rate 20 20 Blood Pressure 111/66 Blood Pressure [Le ft Arm] 109/61 Blood Pressure [Ri ght Upper Arm] Pulse Oximetry 94 94 Oxygen Delivery Me thod Room Air Room Air 10/08/24 22:29 10/08/24 23:00 10/08/24 23:00 Temperature 97.5 F L Pulse Rate 60 Pulse Rate [Pulse Oximeter] 61 Respiratory Rate 20 Blood Pressure Blood Pressure [Le ft Arm] 123/70 Blood Pressure [Ri ght Upper Arm] Pulse Oximetry 91 96 Oxygen Delivery Me thod Room Air Room Air 10/09/24 02:12 10/09/24 07:00 10/09/24 07:29 Temperature 97.7 F Pulse Rate 60 Pulse Rate [Pulse Oximeter] 60 60 Respiratory Rate 17 Blood Pressure Blood Pressure [Le ft Arm] 128/69 Blood Pressure [Ri ght Upper Arm] Pulse Oximetry 96 Oxygen Delivery Me thod Room Air 10/09/24 07:40 10/09/24 07:42 10/09/24 11:35 Temperature 97.7 F 97.7 F Pulse Rate Pulse Rate [Pulse Oximeter] 61 60 Respiratory Rate 20 20 18 Blood Pressure Blood Pressure [Le ft Arm] 121/72 140/71 H Blood Pressure [Ri ght Upper Arm] Pulse Oximetry 92 92 98 Oxygen Delivery Me thod Room Air Room Air Room Air Documenting provider has reviewed patient's vital signs: yes Labs Labs: Laboratory Results - last 24 hr 10/08/24 10/08/24 10/09/24 17:20 19:07 05:37 WBC 6.72 RBC 3.28 L Hgb 9.2 L Hct 29.8 L MCV 91 MCH 28 MCHC 31 L RDW Coeff of Vielka 15.5 Plt Count 158 Neut % (Auto) 71.4 Lymph % (Auto) 11.9 L [place] % (Auto) 14.0 H Eos % (Auto) 2.2 Baso % (Auto) 0.4 Neut # (Auto) 4.79 Lymph # (Auto) 0.80 L [place] # (Auto) 0.90 Eos # (Auto) 0.15 Baso # (Auto) 0.03 Abs Immat Gran (auto) 0.01 Imm/Tot Granulo (auto) 0.1 INR 3.53 H Sodium 134 L Potassium 2.9 L* Chloride 97 Carbon Dioxide 30 Anion Gap 7 BUN 21 Creatinine 1.0 Estimated Creat Clear 41.33 Estimated GFR 58 Glucose 98 Calcium 8.4 Phosphorus Magnesium Total Bilirubin 0.9 AST 25 ALT 14 Alkaline Phosphatase 107 Troponin I 0.12 H* C-Reactive Protein 1.8 H NT-Pro-B Natriuret Pep 2630 Total Protein 5.3 L Albumin 3.3 Urine Color Yellow Urine Appearance Clear Urine pH 5.5 Ur Specific [place] <= 1.005 Urine Protein Negative Urine Glucose (UA) Negative Urine Ketones Negative Urine Blood Negative Urine Nitrite Negative Urine Bilirubin Negative Urine Urobilinogen 0.2 Ur Leukocyte Esterase Negative Urine RBC 0-2 Urine WBC 0-2 Ur Squamous Epith Cells None Urine Bacteria None Lab Acknowledgement Test Added POC Creatinine 1.2 10/09/24 10/09/24 06:01 08:48 WBC 6.56 RBC 3.22 L Hgb 8.9 L Hct 29.4 L MCV 91 MCH 28 MCHC 30 L RDW Coeff of Vielka 15.6 H Plt Count 142 Neut % (Auto) 67.2 Lymph % (Auto) 13.9 L [place] % (Auto) 15.5 H Eos % (Auto) 2.6 Baso % (Auto) 0.6 Neut # (Auto) 4.41 Lymph # (Auto) 0.90 [place] # (Auto) 1.00 H Eos # (Auto) 0.17 Baso # (Auto) 0.04 Abs Immat Gran (auto) 0.01 Imm/Tot Granulo (auto) 0.2 INR 3.63 H Sodium 136 Potassium 3.5 L Chloride 99 Carbon Dioxide 29 Anion Gap 8 BUN 21 Creatinine 0.9 Estimated Creat Clear 36.12 Estimated GFR 66 Glucose 96 Calcium 8.5 Phosphorus 3.6 Magnesium 1.6 Total Bilirubin AST ALT Alkaline Phosphatase Troponin I C-Reactive Protein NT-Pro-B Natriuret Pep Total Protein Albumin Urine Color Urine Appearance Urine pH Ur Specific [place] Urine Protein Urine Glucose (UA) Urine Ketones Urine Blood Urine Nitrite Urine Bilirubin Urine Urobilinogen Ur Leukocyte Esterase Urine RBC Urine WBC Ur Squamous Epith Cells Urine Bacteria Lab Acknowledgement POC Creatinine ECG Attestation: I personally reviewed and interpreted this ECG as follows: (Electrocardiogram shows a paced rhythm without significant ST-T changes)
[2024-10-09] MEDS: FAMOTIDINE 20 MG TABLET PO (18:26)
--- NOTE | 2024-10-09 19:15 | PC.NURSE ---
End of Shift: Patient pleasant and cooperative. VSS, afebrile. SpO2 maintained above 90% on RA. Patient has been feeling nauseas this shift, gave PRN medication, see MAR. 1A with walker and gait belt.
[2024-10-09] MEDS: WARFARIN 3 MG TABLET PO ×2 (20:15→21:57)
[2024-10-09] MEDS: TRAZODONE HCL 50 MG TABLET PO (21:58)
[2024-10-09] MEDS: OMEPRAZOLE 20 MG CAPSULE DR PO (21:58)
[2024-10-10] VITALS (7 sets, daily range): BP systolic 112–146; BP diastolic 57–86; PULSE 60–61; RESP 14–20; TEMP 36.8–37.1; O2SAT 93–95
[2024-10-10] MEDS: ONDANSETRON ODT 4 MG TAB PO ×4 (03:35→18:14)
--- NOTE | 2024-10-10 05:40 | PC.NURSE ---
Shift note ([id number]): Patient pleasant, alert and oriented. Ambulated with rolling walker, gait belt and assist of one. Given scheduled pain medications for pain in back rated 5/10. Given Zofran for nausea. ?
[2024-10-10 07:18] LABS: INR 3.87 (0.91-1.10); Prothrombin Time 41.1 Seconds
[2024-10-10 08:12] LABS: Chloride* 98 mmol/L (96-114); Sodium* 132 mmol/L (135-149)
[2024-10-10 08:15] LABS: Anion Gap 6 mEq/L (7-15); Basophils Absolute Auto 0.04 K/uL (0.00-0.30); Basophils Percent Auto 0.6 % (0.0-3.0); Blood Urea Nitrogen* 14 mg/dL (7-30); Carbon Dioxide* 28 mmol/L (20-32); Creatinine* 0.7 mg/dL (0.5-1.5); Eosinophils Absolute Auto 0.13 K/uL (0.00-0.50); Eosinophils Percent Auto 1.9 % (0.0-7.0); Est. Creatinine Clearance* 36.12; Estimated Glomerular Filt Rate 90 ml/min; Hemoglobin* 8.5 gm/dL (12.0-16.0); Immature Granulocytes Abs Auto 0.02 K/uL (0.00-0.30); Immature Granulocytes Pct Auto 0.3 %; Lymphocytes Percent Auto 11.6 % (20-44); Mean Corpuscular HGB Conc 30 gm/dL (32-36); Mean Corpuscular Hemoglobin 27 pg (26-34); Mean Corpuscular Volume 90 fL (80-100); Monocytes Percent Auto 11.9 % (0.0-11.0); Neutrophils Percent Auto 73.7 % (42.0-72.0); Platelet Count* 130 K/uL (140-440); RDW Coefficient of Variation % 15.6 % (11.5-15.5); Red Blood Count 3.11 m/uL (4.00-5.20); White Blood Count* 6.79 K/uL (4.50-11.00)
[2024-10-10 08:16] LABS: Calcium* 8.1 mg/dL (8.4-10.6); Glucose* 102 mg/dL (60-115)
[2024-10-10 08:18] LABS: Slide Review Reflex No
[2024-10-10 08:45] LABS: C Reactive Protein* 2.7 mg/dL (0.5-1.0)
[2024-10-10] MEDS: OMEPRAZOLE 20 MG CAPSULE DR PO ×2 (08:46→21:08)
[2024-10-10] MEDS: LEVOTHYROXINE 88 MCG TABLET PO (08:46)
[2024-10-10 09:08] LABS: Troponin I* 0.13 ng/mL (0.01-0.04)
[2024-10-10] MEDS: PRAMIPEXOLE 0.125 MG TABLET PO ×3 (09:14→21:09)
[2024-10-10] MEDS: POTASSIUM CHLORIDE 10 MEQ/100 ML PIGGYBACK 100 MEQ IVPB ×4 (10:38→17:27)
[2024-10-10] MEDS: TORSEMIDE 20 MG TABLET PO (10:42)
[2024-10-10] MEDS: ESCITALOPRAM 10 MG TABLET 30 MG PO (10:43)
[2024-10-10] MEDS: AMIODARONE 200 MG TABLET PO (10:43)
[2024-10-10] MEDS: VENLAFAXINE ER 75 MG CAPSULE 150 MG PO ×2 (10:43→21:09)
[2024-10-10] MEDS: ROSUVASTATIN CALCIUM 10 MG TABLET PO (10:44)
[2024-10-10] MEDS: ASPIRIN 81 MG TABLET EC PO (10:44)
[2024-10-10] MEDS: DOXYCYCLINE HYCLATE 100 MG PO ×2 (10:44→21:08)
--- NOTE | 2024-10-10 11:01 | PC.SOCIAL ---
Addendum entered and electronically signed by LALA Crews 10/10/24 15:41: Secure emailed referral to [facility] for evaluation for short term rehab placement. dynamic balancer set up worker to follow up as needed. Original Note: Discharge planning: Spoke with RN, Traci at [facility] who confirmed pt was discharged back to assisted living about a week ago after a long stay at [facility]. Per Traci, pt has had 4 falls in 4 days and needs to go to a rehab unit for her weakness. Traci states pt's dtr is very involved and would want to be involved in any hospital discharge planning. dynamic balancer set up worker to follow up as needed.
[2024-10-10] MEDS: SODIUM CHLORIDE 0.9 % (FLUSH) 10 ML SYRINGE 5 ML IVF ×3 (11:37→21:09)
[2024-10-10] MEDS: LORazepam 2 MG/ML inj 0.5 MG IVP ×2 (12:55→21:06)
[2024-10-10] MEDS: VENLAFAXINE ER 75 MG CAPSULE PO (12:56)
[2024-10-10] MEDS: LIDOCAINE 5% PATCH 1 PATCH TRANSDERMA (12:58)
[2024-10-10] MEDS: LOSARTAN POTASSIUM 50 MG TABLET PO (12:59)
--- NOTE | 2024-10-10 13:30 | PM.IMPN1 ---
Progress Note: A&P Assessment and plan (1) Falls frequently: Problem details: Patient reports this problem started after heart surgery on 08/20/2024. Since then she has been falling, weak, poor balance. Discharge to [facility] on September 30 where she continues to have problems with falling. Status: Acute (2) Physical deconditioning: Problem details: -PT, OT consultation Status: Acute (3) Heart failure: Problem details: Ejection fraction of 50%. Status post mitral valve surgery. Patient appears to have mild volume overload with peripheral edema and bilateral pleural effusions. Pleural effusions may be residual from open-heart surgery 8 weeks ago. Patient refusing potassium supplements making diuresis more difficult. Status: Acute (4) Post cardiotomy syndrome: Problem details: This is a diagnosis at discharge from [facility]. Clinically she appears to have some mild heart failure exacerbation as well. Increased diuretics if possible. Limited by refusal to take potassium Status: Acute (5) Anemia: Problem details: -chronic, monitor Status: Acute (6) Anticoagulated with warfarin: Problem details: -daily PT INR with pharmacy consultation for dosing while in hospital with goal of 2-3 Status: Acute (7) Hypokalemia: Problem details: She has been refusing potassium supplementations. She believes the potassium is causing her nausea. IV replacement and continue to work with the patient to manage oral potassium. Will add in ARB and possibly spironolactone to minimize potassium requirements. Status: Acute (8) Left-sided chest wall pain: Problem details: -status post fall 10/08/2024 with negative radiographic assessments Status: Acute (9) Pacemaker: Problem details: Currently in paced rhythm with a rate of 60. Status: Acute (10) Status post mitral valve replacement: Problem details: [facility] 08/20/2024 Status: Acute (11) Atrial fibrillation: Problem details: On anticoagulation and rate control. Currently paced rhythm of 60. On amiodarone Status: Acute (12) Discharge planning issues: Problem details: With frequent falls and high need for care may need rehab stay prior to returning to [facility] Status: Acute (13) Emotional distress: Problem details: Patient reports coping poorly with her current health status since her heart surgery in August. Continue to manage mental health issues and medications. Continue supportive cares and goal directed therapy for recovery from surgery Status: Acute (14) Intractable nausea and vomiting: Problem details: Acute on chronic problem. Ondansetron has not been effective. Lorazepam has been added. Compazine is contraindicated due to dystonic reaction. Status: Acute (15) Anxiety: Problem details: Patient very anxious about current health status, symptoms, prognosis, disposition plans. P.r.n. lorazepam for now Status: Acute (16) Depression: Problem details: Longstanding problem. Works with the psychiatrist in [place] who manages her medications. Continue antidepressants. Status: Acute (17) Chronic pain: Problem details: She reports chronic neck and mid back pain ongoing. Continue outpatient pain management. Status: Acute Plan Patient admitted to the hospital for management of frequent falls and physical disabilities, heart failure, fluid and electrolyte problems, refusal to take oral potassium, anticipate hospital stay for 3 days to optimize medications, control nausea and vomiting and improve heart failure prior to discharge. Total time spent today is 55 minutes in coordination of care and discussing with patient and other providers ongoing management of these medical problems and disposition.. Subjective Date Seen: 10/10/24 Interval history: Unruly Lassiter is a 74 year old woman presents to the [facility] Emergency Department via EMS after suffering a fall today with a history of multiple recent falls. She was hospitalized at [facility] from 08/20/2024 through 09/30/2024. She has longstanding history of atrial fibrillation was severe, symptomatic mitral regurgitation and tricuspid valve regurgitation, pulmonary hypertension, history of stage III breast cancer status post treatment in 2001, major depression, general anxiety disorder, hypothyroidism. Initially admitted for mitral valve replacement surgery. Underwent elective mitral valve replacement with 33 mm epic tissue valve, underwent tricuspid annuloplasty with 30 mm TriAd band, underwent Maze ablation and left atrial appendage ligation on 08/20/[address] Yepez. Patient had poor RV function and required blood products with CPB time of 196 minutes. Postop recovery was slow. Due to intermittent junctional rhythm EP was consulted and patient underwent permanent pacemaker implantation on 09/07/2024. Did have DCCV after. Went into AFib again on 09/26/2024. EP started amiodarone with scheduled outpatient follow-up. Struggled with ongoing delirium during her hospital stay. Slums score 23/30. Cognition improved slowly. Discharge on 09/30/2024 to assisted living facility with outpatient follow-up. Is been difficult to arrange for outpatient therapy and other supports. Has had multiple falls since back at the assisted living facility, [facility], including the fall today. Patient lives independently. Attempted to weigh herself and lost her balance. Grabbed a shelf in front of her to stabilize herself but fell as the shelf fell also. Left-sided pain since then. In the emergency department physical exam was unremarkable. CT scan of the head, CT spine, chest abdomen and pelvis were all negative for acute fractures or other concerns. Hip x-ray also negative. Given patient's multiple falls and persistent weakness now with a sodium of 134 and a potassium of 2.9 and hemoglobin 9.8 it was determined that it would be safest for patient to be admitted for observation. Additionally efforts to transfer her back to [facility] was unsuccessful because they do not have staff sufficient to care for the patient at this time. Thus patient is admitted to our hospital for observation, for PT, OT, and social cirrhosis to assist with discharge disposition planning and assessments. 10/09/2024: Patient reports that she is not had a fever, cold or cough. No chest pain. She reports she has been able to eat but has a poor appetite. No vomiting. Bowels are working. No urinary problems. She does report her weight is increasing and she is getting more leg edema. She has been taking her diuretics. She reports pain in her left 4th and 5th fingers which she has been told was from a nerve injury during surgery. Lidocaine patch is been used for this 10/10/2024: Patient reports sleeping poorly last night. She has been very nauseated. She has been refusing medications because of nausea. Specifically refusing potassium because she thinks it is the main cause of her nausea. The nausea was present prior to this hospital admission. She is also been feeling anxious and tearful. She wants to go home but is also feeling she needs more help. We reviewed her medications. She has aim mental health provider in [place] who has been working with her on her medications for at least a couple decades and she does not want to make changes in those medications at all. She reports the Zofran is not helping her nausea and Compazine causes dystonic reactions. Exam Narrative: Exam Narrative: She is tearful Const: Vital Signs, click to edit/add: Vital Signs - 24 hr 10/09/24 16:58 10/09/24 17:00 10/09/24 17:03 Temperature 98.3 F Pulse Rate Pulse Rate [Pulse Oximeter] 60 60 Respiratory Rate 18 18 18 Blood Pressure [Le ft Arm] 131/69 Blood Pressure [Ri ght Arm] Pulse Oximetry 98 93 Oxygen Delivery Me thod Room Air Room Air 10/09/24 18:11 10/09/24 19:00 10/09/24 23:00 Temperature 98.3 F 97.9 F Pulse Rate 60 Pulse Rate [Pulse Oximeter] 61 60 Respiratory Rate 20 20 Blood Pressure [Le ft Arm] Blood Pressure [Ri ght Arm] 138/71 117/59 L Pulse Oximetry 95 97 Oxygen Delivery Ca thod Room Air Room Air 10/09/24 23:00 10/09/24 23:00 10/10/24 03:00 Temperature 98.6 F Pulse Rate 60 Pulse Rate [Pulse Oximeter] 60 Respiratory Rate 20 20 Blood Pressure [Le ft Arm] Blood Pressure [Ri ght Arm] 114/60 Pulse Oximetry 97 93 Oxygen Delivery Ca thod Room Air Room Air 10/10/24 08:00 10/10/24 08:00 10/10/24 08:00 Temperature 98.7 F Pulse Rate Pulse Rate [Pulse Oximeter] 60 60 Respiratory Rate 14 14 14 Blood Pressure [Le ft Arm] Blood Pressure [Ri ght Arm] 137/65 Pulse Oximetry 94 94 Oxygen Delivery Ca thod Room Air Room Air 10/10/24 08:00 10/10/24 11:00 Temperature 98.3 F Pulse Rate 60 Pulse Rate [Pulse Oximeter] 60 Respiratory Rate 18 Blood Pressure [Le ft Arm] Blood Pressure [Ri ght Arm] 146/77 H Pulse Oximetry 95 Oxygen Delivery Ca thod Room Air Labs Labs: Laboratory Results - last 24 hr 10/10/24 10/10/24 06:01 07:55 WBC 6.79 RBC 3.11 L Hgb 8.5 L Hct 28.0 L MCV 90 MCH 27 MCHC 30 L RDW Coeff of Vielka 15.6 H Plt Count 130 L Neut % (Auto) 73.7 H Lymph % (Auto) 11.6 L Gaston % (Auto) 11.9 H Eos % (Auto) 1.9 Baso % (Auto) 0.6 Neut # (Auto) 5.00 Lymph # (Auto) 0.80 L Gaston # (Auto) 0.80 Eos # (Auto) 0.13 Baso # (Auto) 0.04 Abs Immat Gran (auto) 0.02 Imm/Tot Granulo (auto) 0.3 INR 3.87 H Sodium 132 L Potassium 3.0 L Chloride 98 Carbon Dioxide 28 Anion Gap 6 L BUN 14 Creatinine 0.7 Estimated Creat Clear 36.12 Estimated GFR 90 Glucose 102 Calcium 8.1 L Troponin I 0.13 H* C-Reactive Protein 2.7 H Lab Acknowledgement Test Added
--- NOTE | 2024-10-10 15:13 | PC.NURSE ---
Shift Summary: patient increased anxiety related to nausea. Patient verbalized that she feels oral potassium is giving her nausea, explained to patient that she had not received oral potassium today, order was changed to IV potassium. Bites of food for meals, requiring zofran PRN for nausea. Patient heard crying several times throughout shift, when asked states she is tired and unable to sleep at night. Patient also said to staff why won't you let me when asked if she is able to take her medications. Is agreeable to taking medications once explained how they work for her. Up with one assist, walker and gait belt.
[2024-10-10] MEDS: LACTOBACILLUS ACIDOPHILUS 1 TABLET 1 TAB PO (17:27)
[2024-10-10] MEDS: WARFARIN 2 MG TABLET PO (17:28)
[2024-10-10] MEDS: ACETAMINOPHEN 325 MG TABLET 650 MG PO ×2 (17:28→21:15)
[2024-10-10] MEDS: TRAZODONE HCL 50 MG TABLET PO (21:09)
[2024-10-10] MEDS: PREGABALIN 75 MG CAPSULE PO (21:09)
[2024-10-10] MEDS: PREGABALIN 75 MG CAPSULE 150 MG PO (21:10)
--- NOTE | 2024-10-10 21:47 | PC.NURSE ---
[id number]: Patient A&Ox3. Patient experiencing constant nausea w/o vomiting. PRN Zofran and Ativan administered. Patient refusing Compazine. A1/walker. Decreased appetite d/t nausea. c/o throat pain from frequent coughing. Declines cough medication. Multiple bruises present from previous falls. Paced.
[2024-10-11] VITALS (8 sets, daily range): BP systolic 114–136; BP diastolic 60–72; PULSE 59–60; RESP 16–20; TEMP 36.6–36.9; O2SAT 92–95
--- NOTE | 2024-10-11 06:41 | PC.NURSE ---
End of shift [id number]: Pt Ax0x4, pleasant, and cooperative. Pt set off bed alarm multiple times throughout the night with intermittent confusion. Pt stated ?I need to get up and take a shower.? Rivet Sorter reoriented and redirected patient back to bed. Pt denies pain throughout the shift. Pt is continent of the bladder. A1 GB W. Chair alarm in place. Pt is resting in chair with call light in reach. ?
[2024-10-11 07:38] LABS: INR 4.88 (0.91-1.10); Prothrombin Time 49.5 Seconds
[2024-10-11 08:25] LABS: Basophils Absolute Auto 0.04 K/uL (0.00-0.30); Basophils Percent Auto 0.6 % (0.0-3.0); Eosinophils Absolute Auto 0.11 K/uL (0.00-0.50); Eosinophils Percent Auto 1.7 % (0.0-7.0); Hemoglobin* 8.6 gm/dL (12.0-16.0); Lymphocytes Absolute Auto 1.34 K/uL (0.90-2.90); Lymphocytes Percent Auto 20.3 % (20-44); Mean Corpuscular HGB Conc 31 gm/dL (32-36); Mean Corpuscular Hemoglobin 28 pg (26-34); Mean Corpuscular Volume 90 fL (80-100); Monocytes Percent Auto 17.3 % (0.0-11.0); Neutrophils Absolute Auto 3.97 K/uL (1.7-7.0); Neutrophils Percent Auto 60.1 % (42.0-72.0); Platelet Count* 135 K/uL (140-440); RDW Coefficient of Variation % 15.7 % (11.5-15.5)
[2024-10-11 08:26] LABS: Chloride* 97 mmol/L (96-114); Potassium* 3.3 mmol/L (3.6-5.1); Sodium* 133 mmol/L (135-149)
[2024-10-11 08:29] LABS: Anion Gap 7 mEq/L (7-15); Blood Urea Nitrogen* 14 mg/dL (7-30); Calcium* 8.3 mg/dL (8.4-10.6); Carbon Dioxide* 29 mmol/L (20-32); Creatinine* 0.8 mg/dL (0.5-1.5); Est. Creatinine Clearance* 36.12; Estimated Glomerular Filt Rate 76 ml/min; Glucose* 87 mg/dL (60-115)
[2024-10-11 08:39] LABS: Slide Review Reflex No
[2024-10-11] MEDS: LACTOBACILLUS ACIDOPHILUS 1 TABLET 1 TAB PO ×3 (08:50→17:46)
[2024-10-11] MEDS: POTASSIUM CHLORIDE 10 MEQ CAPSULE ER 20 MEQ PO (08:50)
[2024-10-11] MEDS: TORSEMIDE 20 MG TABLET PO ×2 (08:51→13:31)
[2024-10-11] MEDS: OMEPRAZOLE 20 MG CAPSULE DR PO ×2 (09:00→20:46)
[2024-10-11] MEDS: polyethylene glycoL 3350 17 GM PACK PO (09:00)
[2024-10-11] MEDS: ACETAMINOPHEN 325 MG TABLET 650 MG PO ×4 (09:00→20:46)
[2024-10-11] MEDS: PREGABALIN 75 MG CAPSULE PO ×2 (09:00→20:46)
[2024-10-11] MEDS: ASPIRIN 81 MG TABLET EC PO (09:00)
[2024-10-11] MEDS: LOSARTAN POTASSIUM 50 MG TABLET PO (09:01)
[2024-10-11] MEDS: ROSUVASTATIN CALCIUM 10 MG TABLET PO (09:01)
[2024-10-11] MEDS: AMIODARONE 200 MG TABLET PO (09:01)
[2024-10-11] MEDS: DOXYCYCLINE HYCLATE 100 MG PO ×2 (09:01→20:46)
[2024-10-11] MEDS: LEVOTHYROXINE 88 MCG TABLET PO (09:01)
[2024-10-11] MEDS: SODIUM CHLORIDE 0.9 % (FLUSH) 10 ML SYRINGE 5 ML IVF ×2 (09:01→20:47)
[2024-10-11] MEDS: ONDANSETRON ODT 4 MG TAB PO (09:06)
--- NOTE | 2024-10-11 12:12 | PC.SOCIAL ---
Met with pt. to give her the relocation form from [facility] which they require in their lease agreement if a tenant is hospitalized. Updated pt. that [facility] has a bed for Monday and want updated progress notes sent on Monday to see how pt. did over the weekend, before they decide if they will accept pt. Social work will send updated progress notes on Monday.
[2024-10-11] MEDS: SPIRONOLACTONE 25 MG TABLET PO (12:23)
[2024-10-11] MEDS: LIDOCAINE 5% PATCH 1 PATCH TRANSDERMA (12:23)
--- NOTE | 2024-10-11 13:38 | PC.SOCIAL ---
Updated Matt at [facility] at [phone] that pt. would not be ready until Monday due to heart failure. He requested that updated progress notes be sent over Monday morning before they make a final decision on whether they will accept pt. Updated pt. who states one of her friends will be able to transport. Pt. wants to stay in [place] at [facility] since she is connected to them since she lives at [facility]. Contacts for transportation will be Monique at [phone] or Max @ [phone].
--- NOTE | 2024-10-11 14:56 | P.IMPN_ITS ---
Progress Note: A&P Assessment and plan (1) Falls frequently: Problem details: Patient reports this problem started after heart surgery on 08/20/2024. Since then she has been falling, weak, poor balance. Discharge to [facility] on September 30 where she continues to have problems with falling. Status: Acute (2) Acute metabolic encephalopathy: Problem details: Suspected to be due to polypharmacy, especially multiple high dose LOAN OFFICER active drugs. Medications will be a readjusted to be close to what the psychiatrist at [facility] recommended. Status: Acute (3) Polypharmacy: Problem details: Patient had polypharmacy prior to admission at [facility]. Psychiatrist there address this by stopping and reducing doses of most of her psychoactive medications. Unfortunately these were restarted at discharge likely causing her decline in mental status and contributing to falls Status: Acute (4) Physical deconditioning: Problem details: -PT, OT consultation Status: Acute (5) Heart failure: Problem details: Ejection fraction of 50%. Status post mitral valve surgery. Patient appears to have mild volume overload with peripheral edema and bilateral pleural effusions. Pleural effusions may be residual from open-heart surgery 8 weeks ago. Clinically improved today with diuresis. Added spironolactone and losartan to torsemide Status: Acute (6) Post cardiotomy syndrome: Problem details: This is a diagnosis at discharge from [place]. Clinically she appears to have some mild heart failure exacerbation as well. Increased diuretics if possible. Limited by refusal to take potassium Status: Acute (7) Anemia: Problem details: -chronic, monitor Status: Acute (8) Anticoagulated with warfarin: Problem details: -daily PT INR with pharmacy consultation for dosing while in hospital with goal of 2-3 Status: Acute (9) Hypokalemia: Problem details: Initially refusing oral potassium. Now appears to be accepting of need for oral potassium. Continue to adjust dose and monitor. Status: Acute (10) Left-sided chest wall pain: Problem details: -status post fall 10/08/2024 with negative radiographic assessments Status: Acute (11) Pacemaker: Problem details: Currently in paced rhythm with a rate of 60. Status: Acute (12) Status post mitral valve replacement: Problem details: [facility] 08/20/2024 Status: Acute (13) Atrial fibrillation: Problem details: On anticoagulation and rate control. Currently paced rhythm of 60. On amiodarone. Plan was to have her have a cardioversion next week. She currently appears in AFib with a paced rhythm of 60. May not need cardioversion. Status: Acute (14) Discharge planning issues: Problem details: With frequent falls and high need for care may need rehab stay prior to returning to [facility] Status: Acute (15) Emotional distress: Problem details: Patient reports coping poorly with her current health status since her heart surgery in August. Continue to manage mental health issues and medications. Continue supportive cares and goal directed therapy for recovery from surgery. Continue to monitor with multiple changes in medications Status: Acute (16) Intractable nausea and vomiting: Problem details: Acute on chronic problem. Ondansetron has not been effective. Lorazepam has been added. Compazine is contraindicated due to dystonic reaction. Status: Acute (17) Anxiety: Problem details: Patient very anxious about current health status, symptoms, prognosis, disposition plans. P.r.n. lorazepam for now. Due to fall risk would recommend no ongoing benzodiazepines Status: Acute (18) Depression: Problem details: Longstanding problem. Continue to monitor on adjusted doses of medications Status: Acute (19) Chronic pain: Problem details: She reports chronic neck and mid back pain ongoing. Continue outpatient pain management. On Lyrica Status: Acute Plan Continue in hospital for evaluation management of metabolic encephalopathy could with polypharmacy, frequent falls, heart failure. Multiple medication adjustments are ongoing to optimize mental status, reduce falls and optimize heart failure. Total time spent today is 50 minutes discussing with patient and family and other providers polypharmacy, medication side effects, heart failure evaluation and management Subjective Date Seen: 10/11/24 Interval history: Unruly Lassiter is a 74 year old woman presents to the [facility] Emergency Department via EMS after suffering a fall today with a history of multiple recent falls. She was hospitalized at [facility] from 08/20/2024 through 09/30/2024. She has longstanding history of atrial fibrillation was severe, symptomatic mitral regurgitation and tricuspid valve regurgitation, pulmonary hypertension, history of stage III breast cancer status post treatment in 2001, major depression, general anxiety disorder, hypothyroidism. Initially admitted for mitral valve replacement surgery. Underwent elective mitral valve re placement with 33 mm epic tissue valve, underwent tricuspid annuloplasty with 30 mm TriAd band, underwent Maze ablation and left atrial appendage ligation on 08/20/[address] Yepez. Patient had poor RV function and required blood products with CPB time of 196 minutes. Postop recovery was slow. Due to intermittent junctional rhythm EP was consulted and patient underwent permanent pacemaker implantation on 09/07/2024. Did have DCCV after. Went into AFib again on 09/26/2024. EP started amiodarone with scheduled outpatient follow-up. Struggled with ongoing delirium during her hospital stay. Slums score 23/30. Cognition improved slowly. Discharge on 09/30/2024 to assisted living facility with outpatient follow-up. Is been difficult to arrange for outpatient therapy and other supports. Has had multiple falls since back at the assisted living facility, [facility], including the fall today. Patient lives independently. Attempted to weigh herself and lost her balance. Grabbed a shelf in front of her to stabilize herself but fell as the shelf fell also. Left-sided pain since then. In the emergency department physical exam was unremarkable. CT scan of the head, CT spine, chest abdomen and pelvis were all negative for acute fractures or other concerns. Hip x-ray also negative. Given patient's multiple falls and persistent weakness now with a sodium of 134 and a potassium of 2.9 and hemoglobin 9.8 it was determined that it would be safest for patient to be admitted for observation. Additionally efforts to transfer her back to [facility] was unsuccessful because they do not have staff sufficient to care for the patient at this time. Thus patient is admitted to our hospital for observation, for PT, OT, and social cirrhosis to assist with discharge disposition planning and assessments. 10/09/2024: Patient reports that she is not had a fever, cold or cough. No chest pain. She reports she has been able to eat but has a poor appetite. No vomiting. Bowels are working. No urinary problems. She does report her weight is increasing and she is getting more leg edema. She has been taking her diuretics. She reports pain in her left 4th and 5th fingers which she has been told was from a nerve injury during surgery. Lidocaine patch is been used for this 10/10/2024: Patient reports sleeping poorly last night. She has been very wilma seated. She has been refusing medications because of nausea. Specifically refusing potassium because she thinks it is the main cause of her nausea. The nausea was present prior to this hospital admission. She is also been feeling anxious and tearful. She wants to go home but is also feeling she needs more help. We reviewed her medications. She has aim mental health provider in [place] who has been working with her on her medications for at least a couple decades and she does not want to make changes in those medications at all. She reports the Zofran is not helping her nausea and Compazine causes dystonic reactions. 10/11/2024: Patient reports feeling better today. Less nausea. Less anxiety. Medications have been changed due to polypharmacy. Additional information has been obtained about medication changes over the last 2 months: While she was at [facility] for about 6 weeks she had psychiatric consultation which stopped her trazodone and bupropion and alprazolam and reduced her very high dose venlafaxine and escitalopram. At the time of discharge on September 30 these medications were resumed at the previous high doses. It is suspected that this is contributing to her significant mental status changes and frequent falls. Exam Narrative: Exam Narrative: She is alert and pleasant today. Much less anxious and not tearful today. Speech is normal. Respirations are clear to auscultation. Cardiovascular: S1, S2, regular rate and rhythm. No murmur gallop or rub. Abdomen: Bowel sounds active. Abdomen is soft without tenderness. Extremities with significantly improved edema. Const: Vital Signs, click to edit/add: Vital Signs - 24 hr 10/10/24 15:00 10/10/24 15:46 10/10/24 18:49 Temperature 98.6 F 98.6 F Pulse Rate Pulse Rate [Pulse Oximeter] 60 61 Respiratory Rate 18 18 20 Blood Pressure [Ri t Arm] 129/86 112/57 L Pulse Oximetry 94 94 95 Oxygen Delivery Me thod Room Air Room Air Room Air 10/10/24 23:00 10/10/24 23:00 10/10/24 23:00 Temperature Pulse Rate 60 Pulse Rate [Pulse Oximeter] 60 60 Respiratory Rate 16 Blood Pressure [Ri t Arm] Pulse Oximetry Oxygen Delivery Me thod 10/10/24 23:00 10/11/24 02:18 10/11/24 07:50 Temperature 98.5 F Pulse Rate 60 Pulse Rate [Pulse Oximeter] 59 L Respiratory Rate 16 16 Blood Pressure [Ri t Arm] 114/63 Pulse Oximetry 95 95 Oxygen Delivery Md thod Room Air Room Air 10/11/24 07:56 10/11/24 07:56 10/11/24 07:56 Temperature 97.9 F Pulse Rate Pulse Rate [Pulse Oximeter] 60 60 Respiratory Rate 18 18 18 Blood Pressure [Ri t Arm] 136/72 Pulse Oximetry 93 93 Oxygen Delivery Me thod Room Air Room Air 10/11/24 12:04 Temperature 98.2 F Pulse Rate Pulse Rate [Pulse Oximeter] 60 Respiratory Rate 18 [facility] 128/62 Pulse Oximetry 94 Oxygen Delivery Me thod Room Air Documenting provider has reviewed patient's vital signs: yes Labs Labs: Laboratory Results - last 24 hr 10/11/24 05:58 WBC 6.60 RBC 3.10 L Hgb 8.6 L Hct 28.0 L MCV 90 MCH 28 MCHC 31 L RDW Coeff of Vielka 15.7 H Plt Count 135 L Neut % (Auto) 60.1 Lymph % (Auto) 20.3 [place] % (Auto) 17.3 H Eos % (Auto) 1.7 Baso % (Auto) 0.6 Neut # (Auto) 3.97 Lymph # (Auto) 1.34 [place] # (Auto) 1.10 H Eos # (Auto) 0.11 Baso # (Auto) 0.04 Abs Immat Gran (auto) 0.00 Imm/Tot Granulo (auto) 0.0 INR 4.88 H Sodium 133 L Potassium 3.3 L Chloride 97 Carbon Dioxide 29 Anion Gap 7 BUN 14 Creatinine 0.8 Estimated Creat Clear 36.12 Estimated GFR 76 Glucose 87 Calcium 8.3 L
--- NOTE | 2024-10-11 18:08 | PC.NURSE ---
End of Shift 08
--- NOTE | 2024-10-11 18:08 | PC.NURSE ---
End of Shift [id number]: Patient pleasant and cooperative, alert and oriented, although confused at times. Patient vitally stable, lungs clear, BS WNL, IV SL. Patient rates pain 0, but reports soreness in her lower back. Patient ambulates 1 assist/walker. Patient with poor appetite eating bites of meals. Zophran given once for nausea. Patient has been up in chair majority of day but has also taken two naps in bed, patient has been drowsy today. Tele=paced. Lidocaine patch applied to left hand.
[2024-10-11] MEDS: PREGABALIN 75 MG CAPSULE 150 MG PO (20:46)
[2024-10-11] MEDS: VENLAFAXINE ER 75 MG CAPSULE 150 MG PO (20:46)
[2024-10-12] VITALS (9 sets, daily range): BP systolic 99–133; BP diastolic 58–65; PULSE 60–63; RESP 16–20; TEMP 36.6–36.9; O2SAT 92–97
[2024-10-12] MEDS: QUETIAPINE 25 MG TABLET PO (00:43)
[2024-10-12] MEDS: PRAMIPEXOLE 0.125 MG TABLET PO ×3 (00:43→21:31)
--- NOTE | 2024-10-12 07:00 | PC.NURSE ---
Pt pleasant, alert, oriented and vitally stable, though does have periods of forgetfulness. Pt walking halls via 1 a, walker gait belt, tolerates well. Pt complained of anxiety; prn Seroquel given, pt stated improvement. Pt in chair, appears to be resting, call light within reach.
[2024-10-12 07:11] LABS: INR 4.89 (0.91-1.10); Prothrombin Time 49.7 Seconds
[2024-10-12 07:13] LABS: Chloride* 97 mmol/L (96-114); Sodium* 131 mmol/L (135-149)
[2024-10-12 07:16] LABS: Anion Gap 7 mEq/L (7-15); Blood Urea Nitrogen* 14 mg/dL (7-30); Carbon Dioxide* 27 mmol/L (20-32); Creatinine* 0.9 mg/dL (0.5-1.5); Est. Creatinine Clearance* 36.12; Estimated Glomerular Filt Rate 66 ml/min; Glucose* 76 mg/dL (60-115)
[2024-10-12 07:17] LABS: Calcium* 7.7 mg/dL (8.4-10.6)
[2024-10-12] MEDS: ONDANSETRON ODT 4 MG TAB PO ×2 (07:56→21:35)
[2024-10-12] MEDS: LACTOBACILLUS ACIDOPHILUS 1 TABLET 1 TAB PO ×3 (07:56→17:31)
[2024-10-12] MEDS: POTASSIUM CHLORIDE 10 MEQ CAPSULE ER 20 MEQ PO (07:57)
[2024-10-12] MEDS: PREGABALIN 75 MG CAPSULE PO ×2 (08:43→21:32)
[2024-10-12] MEDS: polyethylene glycoL 3350 17 GM PACK PO (08:43)
[2024-10-12] MEDS: AMIODARONE 200 MG TABLET PO (08:43)
[2024-10-12] MEDS: LEVOTHYROXINE 88 MCG TABLET PO (08:43)
[2024-10-12] MEDS: TORSEMIDE 20 MG TABLET PO (08:43)
[2024-10-12] MEDS: ASPIRIN 81 MG TABLET EC PO (08:43)
[2024-10-12] MEDS: ESCITALOPRAM 10 MG TABLET 15 MG PO (08:44)
[2024-10-12] MEDS: LOSARTAN POTASSIUM 50 MG TABLET PO (08:44)
[2024-10-12] MEDS: SPIRONOLACTONE 25 MG TABLET PO (08:44)
[2024-10-12] MEDS: ACETAMINOPHEN 325 MG TABLET 650 MG PO ×4 (08:44→21:31)
[2024-10-12] MEDS: DOXYCYCLINE HYCLATE 100 MG PO ×2 (08:44→21:31)
[2024-10-12] MEDS: OMEPRAZOLE 20 MG CAPSULE DR PO ×2 (08:44→21:35)
[2024-10-12] MEDS: ROSUVASTATIN CALCIUM 10 MG TABLET PO (08:45)
[2024-10-12] MEDS: SODIUM CHLORIDE 0.9 % (FLUSH) 10 ML SYRINGE 5 ML IVF ×2 (08:46→21:34)
--- NOTE | 2024-10-12 12:37 | PM.IMPN1 ---
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 Medications will be a readjusted to be close to what the psychiatrist at [facility] recommended, current meds: Escitalopram 15 mg daily Venlafaxine 150 mg nightly Continuing to monitor for improvement Status: Acute (2) Falls frequently: Problem details: Patient reports this problem started after heart surgery on 08/20/2024. Since then she has been falling, weak, poor balance. Discharged to [facility] on September 30 where she continues to have problems with falling Fall on 10/08 resulting in left sided ribcage pain, left shoulder pain, right hip pain PT/OT consults, social worker health services for placement/discharge needs Status: Acute (3) Left-sided chest wall pain: Problem details: -status post fall 10/08/2024 with negative radiographic assessments. Has some swelling across chest as well as into left arm Status: Acute (4) Left shoulder pain: Problem details: S/p fall on 10/08. Tenderness over AC joint with moderate swelling through arm Shoulder x-ray shows No acute fracture or malalignment. There are some mild osteoarthritic degenerative changes of the acromioclavicular joint. No significant osteoarthritic degenerative changes of the glenohumeral joint. No suspicious osseous lesions. Likely small benign bone island in the humeral head. The soft tissues are without acute abnormality. Symptomatic cares, elevation for swelling Status: Acute (5) Polypharmacy: Problem details: Patient had polypharmacy prior to admission at [facility]. Psychiatrist there address this by stopping and reducing doses of most of her psychoactive medications. Unfortunately these were restarted at discharge likely causing her decline in mental status and contributing to falls Status: Acute (6) Physical deconditioning: Problem details: PT, OT consultation Status: Acute (7) Heart failure: Problem details: Ejection fraction of 50%. Status post mitral valve surgery. Patient appears to have mild volume overload with peripheral edema and bilateral pleural effusions. Pleural effusions may be residual from open-heart surgery 8 weeks ago. Clinically improved today with diuresis. 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 Clinically she appears to have some mild heart failure exacerbation as well. Increased diuretics if possible. Limited by refusal to take potassium - now taking oral potassium Status: Acute (9) Hypokalemia: Problem details: Initially refusing oral potassium. Now appears to be accepting of need for oral potassium. Continue to adjust dose and monitor. Status: Acute (10) Pacemaker: Problem details: Currently in paced rhythm with a rate of 60. Status: Acute (11) Status post mitral valve replacement: Problem details: Deysi Almeida 08/20/2024 Status: Acute (12) Atrial fibrillation: Problem details: On anticoagulation and rate control. Currently paced rhythm of 60. On amiodarone. Plan was to have her have a cardioversion next week. She currently appears in AFib with a paced rhythm of 60. May not need cardioversion. Status: Acute (13) Anticoagulated with warfarin: Problem details: -daily PT INR with pharmacy consultation for dosing while in hospital with goal of 2-3. INR has been >4 thus far, holding warfarin Status: Acute (14) Emotional distress: Problem details: Patient reports coping poorly with her current health status since her heart surgery in August. Continue to manage mental health issues and medications. Continue supportive cares and goal directed therapy for recovery from surgery. Continue to monitor with multiple changes in medications Status: Acute (15) Anxiety: Problem details: Patient very anxious about current health status, symptoms, prognosis, disposition plans. P.r.n. lorazepam for now. Due to fall risk would recommend no ongoing benzodiazepines Status: Acute (16) Depression: Problem details: Longstanding problem. Continue to monitor on adjusted doses of medications Status: Acute (17) Chronic pain: Problem details: She reports chronic neck and mid back pain ongoing. Continue outpatient pain management. On Lyrica Status: Acute (18) Anemia: Problem details: -chronic, monitor Status: Acute (19) Intractable nausea and vomiting: Problem details: Acute on chronic problem. Ondansetron has not been effective. Lorazepam has been added. Compazine is contraindicated due to dystonic reaction. 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 Dysphagia diet for the weekend Status: Acute Plan Continue in hospital for evaluation management of metabolic encephalopathy could with polypharmacy, frequent falls, heart failure. Multiple medication adjustments are ongoing to optimize mental status, reduce falls and optimize heart failure. Time Spent With Patient Total time spent: Total time spent caring for the patient today was 45 minutes. This includes time spent for the visit reviewing the chart, time spent during the visit, time spent after the visit and documentation and planning in coordination of care. Subjective Date Seen: 10/12/24 Interval history: Patient is seen sitting up in a chair by the window this morning. Denies headache or dizziness. Continues with left rib and left shoulder pain. Has had increased swelling into the left arm since yesterday. Remains afebrile. No difficulties breathing. No nausea or vomiting. While eating scrambled eggs this morning, she is noted to choke while chewing, not speaking at the time. She tells me she know she is not supposed to eat scrambled eggs. Recovers. Exam Narrative: Exam Narrative: PHYSICAL EXAM General: Pleasant, conversant, NAD Cardiovascular: RRR paste Pulmonary: CTA bilaterally without rhonchi, rales, expiratory wheezes. No dyspnea Neurological: Alert, answering questions appropriately, cranial nerves intact, no focal findings Extremities: LUE with swelling throughout, notably at the elbow. No hand wrist or elbow bony tenderness. Shoulder is tender at the AC joint. Pain with PROM at the shoulder. Otherwise AROMI. Neurovascularly intact Skin: Warm, dry. Const: Vital Signs, click to edit/add: Vital Signs - 24 hr 10/11/24 15:15 10/11/24 15:44 10/11/24 15:44 Temperature 98.2 F Pulse Rate 60 Pulse Rate [Pulse Oximeter] 60 60 Respiratory Rate 20 20 Blood Pressure [Le ft Arm] Blood Pressure [Ri ght Arm] 123/60 Pulse Oximetry 92 Oxygen Delivery Me thod Room Air 10/11/24 15:44 10/11/24 19:00 10/11/24 23:00 Temperature 98.1 F Pulse Rate Pulse Rate [Pulse Oximeter] 60 Respiratory Rate 18 18 Blood Pressure [Le ft Arm] Blood Pressure [Ri ght Arm] 116/64 Pulse Oximetry 92 93 93 Oxygen Delivery Me thod Room Air Room Air Room Air 10/11/24 23:00 10/11/24 23:00 10/11/24 23:00 Temperature 98.1 F Pulse Rate 59 L Pulse Rate [Pulse Oximeter] 60 60 Respiratory Rate 18 20 Blood Pressure [Le ft Arm] Blood Pressure [Ri ght Arm] 118/66 Pulse Oximetry 93 Oxygen Delivery Va thod Room Air 10/12/24 07:43 10/12/24 07:43 10/12/24 07:43 Temperature 97.8 F Pulse Rate Pulse Rate [Pulse Oximeter] 60 60 Respiratory Rate 18 18 18 Blood Pressure [Le ft Arm] Blood Pressure [Ri ght Arm] 133/65 Pulse Oximetry 92 92 Oxygen Delivery Va thod Room Air Room Air 10/12/24 08:33 10/12/24 11:43 Temperature 98.4 F Pulse Rate 60 Pulse Rate [Pulse Oximeter] 60 Respiratory Rate 20 Blood Pressure [Le ft Arm] 119/60 Blood Pressure [Ri ght Arm] Pulse Oximetry 95 Oxygen Delivery Va thod Room Air Labs Labs: Laboratory Results - last 24 hr 10/12/24 06:11 INR 4.89 H Sodium 131 L Potassium 3.0 L Chloride 97 Carbon Dioxide 27 Anion Gap 7 BUN 14 Creatinine 0.9 Estimated Creat Clear 36.12 Estimated GFR 66 Glucose 76 Calcium 7.7 L
--- NOTE | 2024-10-12 12:54 | CRLHL7_ITS ---
For Patients: As a result of the Cures Act, medical imaging exams and procedure reports are released immediately into your electronic medical record. You may view this report before your referring provider. If you have questions, please contact your health care provider. Indication: FALL INJURY 10/08. INCREASED PAIN Technique: Three views of the left shoulder. Comparison: None Findings/Impression: No acute fracture or malalignment. There are some mild osteoarthritic degenerative changes of the acromioclavicular joint. No significant osteoarthritic degenerative changes of the glenohumeral joint. No suspicious osseous lesions. Likely small benign bone island in the humeral head. The soft tissues are without acute abnormality. Dictated by Arnulfo Weldon MD @ 10/12/2024 2:08:11 PM (Electronically Signed)
[2024-10-12] MEDS: POTASSIUM BICARB 25 MEQ EFFERVESCENT TAB PO ×2 (13:23→15:33)
--- NOTE | 2024-10-12 17:44 | PC.NURSE ---
End of Shift [id number]: Patient pleasant and cooperative, alert and oriented, forgetful at times. Patient vitally stable, lungs clear, BS WNL, IV SL and intact. Patient rates back pain 4-6/10, scheduled tylenol given. Patient was given zophran once this morning for nausea. Patient is tolerating regular diet and eating more of meals today compared to yesterday. Patient has cried multiple times today due to being in the hospital. Patient showered today and took a walk this afternoon. Left arm swollen, as it was yesterday too, MD aware.
[2024-10-12] MEDS: LIDOCAINE 5% PATCH 1 PATCH TRANSDERMA (21:29)
[2024-10-12] MEDS: VENLAFAXINE ER 75 MG CAPSULE 150 MG PO (21:31)
[2024-10-12] MEDS: PREGABALIN 75 MG CAPSULE 150 MG PO (21:32)
--- NOTE | 2024-10-12 23:39 | PC.NURSE ---
[id number]: Pt pleasant, alert, oriented and vitally stable, though does have periods of forgetfulness. Pt moves via 1a with walker and gait belt. Pt had complaints of mild nausea; prn Zofran given. Lidocaine patch placed on left hand per pt request. Pt in chair, appears to be resting, call light within reach.
[2024-10-13] VITALS (9 sets, daily range): BP systolic 113–156; BP diastolic 52–69; PULSE 59–60; RESP 14–18; TEMP 36.6–36.8; O2SAT 93–99
--- NOTE | 2024-10-13 06:49 | PC.NURSE ---
End of shift [id number] ? Pt alert, oriented, cooperative. Up with standby assistance and walker/gait belt. Pt requested ambulation in [place] with RN. During walk pt became overcome with nausea. RN provided aromatherapy intervention with pt verbalizing improvement. Pt became tearful during shift at the thought of her changing health and being in the hospital. RN provided emotional support. Observed to sleep during shift. Pt appears to be resting comfortably in chair at end of shift with call light within reach. ??
--- NOTE | 2024-10-13 07:17 | P.IMPN_ITS ---
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 Medications will be readjusted to be close to what the psychiatrist at [facility] recommended - note 09/03/24 reviewed: Escitalopram 15 mg daily Venlafaxine 150 mg nightly Was not restarted on previous olanzapine, valproic acid. Avoid use of hydroxyzine, bupropion, trazodone Continuing to monitor for improvement - stable Status: Acute (2) Falls frequently: Problem details: Patient reports this problem started after heart surgery on 08/20/2024. Since then she has been falling, weak, poor balance. Discharged to [facility] on September 30 where she continues to have problems with falling Fall on 10/08 resulting in left sided ribcage pain, left shoulder pain, right hip pain PT/OT consults, social media designer for placement/discharge needs Status: Acute (3) Left-sided chest wall pain: Problem details: -status post fall 10/08/2024 with negative radiographic assessments. Has some swelling across chest as well as into left arm -pain and swelling improving Status: Acute (4) Left shoulder pain: Problem details: S/p fall on 10/08. Tenderness over AC joint with moderate swelling through arm Shoulder x-ray shows No acute fracture or malalignment.There are some mild osteoarthritic degenerative changes of the acromioclavicular joint. No significant osteoarthritic degenerative changes of the glenohumeral joint. No suspicious osseous lesions. Likely small benign bone island in the humeral head. The soft tissues are without acute abnormality Symptomatic cares, elevation for swelling Status: Acute (5) Polypharmacy: Problem details: Patient had polypharmacy prior to admission at [facility]. Psychiatrist there address this by stopping and reducing doses of most of her psychoactive medications. Unfortunately these were restarted at discharge likely causing her decline in mental status and contributing to falls See note above, #1 Status: Acute (6) Physical deconditioning: Problem details: PT, OT consultation Status: Acute (7) Heart failure: Problem details: Ejection fraction of 50%. Status post mitral valve surgery. Patient appears to have mild volume overload with peripheral edema and bilateral pleural effusions. Pleural effusions may be residual from open-heart surgery 8 weeks ago. Clinically improved today with diuresis. 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 Clinically she appears to have some mild heart failure exacerbation as well. Increased diuretics if possible. Limited by refusal to take potassium - now taking oral potassium Status: Acute (9) Hypokalemia: Problem details: Initially refusing oral potassium. Now appears to be accepting of need for oral potassium. Improving, continue scheduled dosing Status: Acute (10) Pacemaker: Problem details: Currently in paced rhythm with a rate of 60 Status: Acute (11) Status post mitral valve replacement: Problem details: [facility] 08/20/2024 Status: Acute (12) Atrial fibrillation: Problem details: On anticoagulation and rate control. Currently paced rhythm of 60. On amiodarone. Plan was to have her have a cardioversion next week. She currently appears in AFib with a paced rhythm of 60. May not need cardioversion. Status: Acute (13) Anticoagulated with warfarin: Problem details: -daily PT INR with pharmacy consultation for dosing while in hospital with goal of 2-3. INR has been >4 thus far, holding warfarin Status: Acute (14) Emotional distress: Problem details: Patient reports coping poorly with her current health status since her heart surgery in August. Continue to manage mental health issues and medications. Continue supportive cares and goal directed therapy for recovery from surgery. Continue to monitor with multiple changes in medications Status: Acute (15) Anxiety: Problem details: Patient very anxious about current health status, symptoms, prognosis, disposition plans. P.r.n. lorazepam for now. Due to fall risk would recommend no ongoing benzodiazepines Status: Acute (16) Depression: Problem details: Longstanding problem. Continue to monitor on adjusted doses of medications Status: Acute (17) Chronic pain: Problem details: She reports chronic neck and mid back pain ongoing. Continue outpatient pain management. On Lyrica Status: Acute (18) Anemia: Problem details: -chronic, monitor Status: Acute (19) Intractable nausea and vomiting: Problem details: Acute on chronic problem. Ondansetron has not been effective. Lorazepam has been added. Compazine is contraindicated due to dystonic reaction. Status: Acute (20) Discharge planning issues: Problem details: With frequent falls and high need for care may need rehab stay prior to returning to [facility] assisting - [facility] assessing Status: Acute (21) Dysphagia: Problem details: Acute on chronic recurrent, 10/12 noted to choke while eating scrambled eggs this morning Reports mild choking episodes at least twice weekly, more severe episodes may be once weekly Previous swallow evaluations - aware of which foods she should avoid but is not always compliant [facility] 1) IDDSI Level 6 - Soft/Bite sized 2) Thin liquids 3) Meds with sips or whole in applesauce 4) 1:1 Assistance for all PO - emphasis on set-up and pacing with SLOW RATE and frequent breaks during 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 Multiple medication adjustments are ongoing to optimize mental status, reduce falls and optimize heart failure. [facility] assessing Time Spent With Patient Total time spent: Total time spent caring for the patient today was 45 minutes. This includes time spent for the visit reviewing the chart, time spent during the visit, time spent after the visit and documentation and planning in coordination of care. Subjective Date Seen: 10/13/24 Interval history: Patient is seen sitting up in a chair this morning. Reports feeling better this morning. No events reported overnight. Denies headache or dizziness. Denies chest pain or shortness of breath. No further choking episodes reported. Diet has been modified for dysphagia for now. Exam Narrative: Exam Narrative: PHYSICAL EXAM General: Pleasant, conversant, NAD Cardiovascular: RRR paced Pulmonary: CTA bilaterally without rhonchi, rales, expiratory wheezes. No dyspnea Neurological: Alert, answering questions appropriately, cranial nerves intact, no focal findings Extremities: LUE with swelling throughout, notably at the elbow, improved around shoulder this morning. No hand wrist or elbow bony tenderness. Shoulder is tender at the AC joint. Pain with PROM at the shoulder. Otherwise AROMI. Neurovascularly intact Skin: Warm, dry. Const: Vital Signs, click to edit/add: Vital Signs - 24 hr 10/12/24 07:43 10/12/24 07:43 10/12/24 07:43 Temperature 97.8 F Pulse Rate Pulse Rate [Pulse Oximeter] 60 60 Respiratory Rate 18 18 18 Blood Pressure [Le ft Arm] Blood Pressure [Ri ght Arm] 133/65 Pulse Oximetry 92 92 Oxygen Delivery Me thod Room Air Room Air 10/12/24 08:33 10/12/24 11:43 10/12/24 14:58 Temperature 98.4 F 98.1 F Pulse Rate 60 Pulse Rate [Pulse Oximeter] 60 60 Respiratory Rate 20 18 Blood Pressure [Le ft Arm] 119/60 Blood Pressure [Ri ght Arm] 99/58 L Pulse Oximetry 95 96 Oxygen Delivery Me thod Room Air Room Air 10/12/24 15:00 10/12/24 15:00 10/12/24 15:00 Temperature Pulse Rate Pulse Rate [Pulse Oximeter] 60 60 Respiratory Rate 18 18 Blood Pressure [Le ft Arm] Blood Pressure [Ri ght Arm] 102/65 Pulse Oximetry 96 Oxygen Delivery Me thod Room Air 10/12/24 16:27 10/12/24 19:00 10/12/24 22:35 Temperature 98.0 F Pulse Rate 60 Pulse Rate [Pulse Oximeter] 63 63 Respiratory Rate 18 18 Blood Pressure [Le ft Arm] Blood Pressure [Ri ght Arm] 111/58 L Pulse Oximetry 97 Oxygen Delivery Me thod Room Air 10/12/24 22:35 10/12/24 23:38 10/13/24 00:24 Temperature 98.1 F Pulse Rate 60 Pulse Rate [Pulse Oximeter] 60 Respiratory Rate 16 Blood Pressure [Le ft Arm] Blood Pressure [Ri ght Arm] 108/59 L Pulse Oximetry 95 95 Oxygen Delivery Me thod Room Air Room Air 10/13/24 04:20 Temperature Pulse Rate Pulse Rate [Pulse Oximeter] 60 Respiratory Rate 16 Blood Pressure [Le ft Arm] Blood Pressure [Ri ght Arm] 115/52 L Pulse Oximetry 93 Oxygen Delivery Me thod Room Air Labs Labs: Laboratory Results - last 24 hr 10/12/24 06:11 INR 4.89 H Carbon Dioxide 27 Anion Gap 7 BUN 14 Glucose 76 Calcium 7.7 L
[2024-10-13 07:21] LABS: Chloride* 100 mmol/L (96-114)
[2024-10-13 07:22] LABS: INR 4.02 (0.91-1.10); Potassium* 3.6 mmol/L (3.6-5.1); Prothrombin Time 42.4 Seconds; Sodium* 134 mmol/L (135-149)
[2024-10-13 07:24] LABS: Est. Creatinine Clearance* 36.12; Estimated Glomerular Filt Rate 58 ml/min
[2024-10-13 07:25] LABS: Anion Gap 6 mEq/L (7-15); Blood Urea Nitrogen* 17 mg/dL (7-30); Calcium* 8.2 mg/dL (8.4-10.6); Carbon Dioxide* 28 mmol/L (20-32); Glucose* 85 mg/dL (60-115)
[2024-10-13] MEDS: ONDANSETRON ODT 4 MG TAB PO ×4 (07:51→20:40)
[2024-10-13] MEDS: LACTOBACILLUS ACIDOPHILUS 1 TABLET 1 TAB PO ×3 (07:51→17:42)
[2024-10-13] MEDS: polyethylene glycoL 3350 17 GM PACK PO (09:13)
[2024-10-13] MEDS: ROSUVASTATIN CALCIUM 10 MG TABLET PO (09:14)
[2024-10-13] MEDS: POTASSIUM CHLORIDE 10 MEQ CAPSULE ER 20 MEQ PO ×2 (09:14→20:37)
[2024-10-13] MEDS: OMEPRAZOLE 20 MG CAPSULE DR PO ×2 (09:15→20:37)
[2024-10-13] MEDS: PRAMIPEXOLE 0.125 MG TABLET PO ×3 (09:15→20:37)
[2024-10-13] MEDS: AMIODARONE 200 MG TABLET PO (09:15)
[2024-10-13] MEDS: PREGABALIN 75 MG CAPSULE PO (09:15)
[2024-10-13] MEDS: SPIRONOLACTONE 25 MG TABLET PO (09:15)
[2024-10-13] MEDS: LEVOTHYROXINE 88 MCG TABLET PO (09:15)
[2024-10-13] MEDS: TORSEMIDE 20 MG TABLET PO (09:15)
[2024-10-13] MEDS: DOXYCYCLINE HYCLATE 100 MG PO ×2 (09:15→20:36)
[2024-10-13] MEDS: ACETAMINOPHEN 325 MG TABLET 650 MG PO ×4 (09:15→20:36)
[2024-10-13] MEDS: LOSARTAN POTASSIUM 50 MG TABLET PO (09:16)
[2024-10-13] MEDS: ASPIRIN 81 MG TABLET EC PO (09:16)
[2024-10-13] MEDS: ESCITALOPRAM 10 MG TABLET 15 MG PO (09:16)
[2024-10-13] MEDS: SODIUM CHLORIDE 0.9 % (FLUSH) 10 ML SYRINGE 5 ML IVF ×2 (09:18→20:39)
[2024-10-13] MEDS: LIDOCAINE 5% PATCH 1 PATCH TRANSDERMA (19:11)
--- NOTE | 2024-10-13 19:32 | PC.NURSE ---
End of Shift: Patient pleasant and cooperative, alert and oriented. Patient vitally stable, lungs clear, BS WNL, IV SL. Patient rates minimal pain today /. Lidocaine patch applied to left hand. Zophran given x3 today, before each meal, patient was more nauseated compared to yesterday. Patient urinating well and had 2 BMs. Patient has tolerated regular diet, but with small appetite. Patient has gone on several walks today.
[2024-10-13] MEDS: PREGABALIN 75 MG CAPSULE 150 MG PO (20:39)
[2024-10-13] MEDS: VENLAFAXINE ER 75 MG CAPSULE 150 MG PO (20:40)
[2024-10-13] MEDS: QUETIAPINE 25 MG TABLET PO (20:40)
[2024-10-14] VITALS (11 sets, daily range): BP systolic 106–134; BP diastolic 60–80; PULSE 59–61; RESP 12–18; TEMP 36.3–36.7; O2SAT 93–99
--- NOTE | 2024-10-14 06:51 | PC.NURSE ---
End of shift [id number] ? Pt alert, oriented, cooperative. Up with standby assistance and walker/gait belt. Pt requested ambulation in mead with RN. Emotional lability from previous shifts noted to be improved during current shift. No pain reported during shift. Observed to sleep during shift. Pt appears to be resting comfortably in chair at end of shift with call light within reach. ? ?
[2024-10-14 07:06] LABS: Chloride* 101 mmol/L (96-114); Potassium* 3.7 mmol/L (3.6-5.1); Sodium* 134 mmol/L (135-149)
[2024-10-14 07:07] LABS: INR 3.54 (0.91-1.10); Prothrombin Time 38.3 Seconds
[2024-10-14 07:09] LABS: Anion Gap 5 mEq/L (7-15); Blood Urea Nitrogen* 17 mg/dL (7-30); Carbon Dioxide* 28 mmol/L (20-32); Est. Creatinine Clearance* 36.12; Estimated Glomerular Filt Rate 58 ml/min
[2024-10-14 07:10] LABS: Calcium* 8.2 mg/dL (8.4-10.6); Glucose* 85 mg/dL (60-115)
[2024-10-14] MEDS: ONDANSETRON ODT 4 MG TAB PO ×3 (08:52→20:02)
[2024-10-14] MEDS: LOSARTAN POTASSIUM 50 MG TABLET PO (08:55)
[2024-10-14] MEDS: LEVOTHYROXINE 88 MCG TABLET PO (08:55)
[2024-10-14] MEDS: OMEPRAZOLE 20 MG CAPSULE DR PO ×2 (08:56→21:32)
[2024-10-14] MEDS: TORSEMIDE 20 MG TABLET PO (08:56)
[2024-10-14] MEDS: DOXYCYCLINE HYCLATE 100 MG PO ×2 (08:57→21:32)
[2024-10-14] MEDS: PRAMIPEXOLE 0.125 MG TABLET PO ×3 (08:57→21:33)
[2024-10-14] MEDS: ASPIRIN 81 MG TABLET EC PO (08:57)
[2024-10-14] MEDS: ESCITALOPRAM 10 MG TABLET 15 MG PO (08:58)
[2024-10-14] MEDS: PREGABALIN 75 MG CAPSULE PO (08:59)
[2024-10-14] MEDS: VENLAFAXINE ER 75 MG CAPSULE 150 MG PO (08:59)
[2024-10-14] MEDS: ACETAMINOPHEN 325 MG TABLET 650 MG PO ×3 (09:00→18:41)
[2024-10-14] MEDS: POTASSIUM CHLORIDE 10 MEQ CAPSULE ER 20 MEQ PO ×2 (09:00→21:32)
[2024-10-14] MEDS: LACTOBACILLUS ACIDOPHILUS 1 TABLET 1 TAB PO ×3 (09:00→18:42)
[2024-10-14] MEDS: AMIODARONE 200 MG TABLET PO (09:01)
[2024-10-14] MEDS: SPIRONOLACTONE 25 MG TABLET PO (09:02)
[2024-10-14] MEDS: polyethylene glycoL 3350 17 GM PACK PO (09:02)
[2024-10-14] MEDS: ROSUVASTATIN CALCIUM 10 MG TABLET PO (09:21)
[2024-10-14] MEDS: SODIUM CHLORIDE 0.9 % (FLUSH) 10 ML SYRINGE 5 ML IVF ×2 (09:24→21:54)
--- NOTE | 2024-10-14 10:02 | REH.SLP ---
Clinical swallow evaluation completed. Full note to follow. Regular diet with thin liquids. Chin tuck with thin, small bites, slow rate, no talking while eating. Meds in puree carrier followed by sip of water.
--- NOTE | 2024-10-14 15:00 | P.IMPN_ITS ---
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 Medications will be readjusted to be close to what the psychiatrist at [facility] recommended - note 09/03/24 reviewed: Escitalopram 15 mg daily Venlafaxine 150 mg nightly Was not restarted on previous olanzapine, valproic acid. Avoid use of hydroxyzine, bupropion, trazodone Continuing to monitor for improvement - stable, intermittently labile Status: Acute (2) Falls frequently: Problem details: Patient reports this problem started after heart surgery on 08/20/2024. Since then she has been falling, weak, poor balance. Discharged to [facility] on September 30 where she continues to have problems with falling Fall on 10/08 resulting in left sided ribcage pain, left shoulder pain, right hip pain PT/OT consults, child welfare social worker for placement/discharge needs Status: Acute (3) Left-sided chest wall pain: Problem details: -status post fall 10/08/2024 with negative radiographic assessments. Has some swelling across chest as well as into left arm -pain and swelling continuing to improve Status: Acute (4) Left shoulder pain: Problem details: S/p fall on 10/08. Tenderness over AC joint with moderate swelling through arm Shoulder x-ray shows No acute fracture or malalignment.There are some mild o steoarthritic degenerative changes of the acromioclavicular joint. No significant osteoarthritic degenerative changes of the glenohumeral joint. No suspicious osseous lesions. Likely small benign bone island in the humeral head. The soft tissues are without acute abnormality Symptomatic cares, elevation for swelling Status: Acute (5) Polypharmacy: Problem details: Patient had polypharmacy prior to admission at [facility]. Psychiatrist there address this by stopping and reducing doses of most of her psychoactive medications. Unfortunately these were restarted at discharge likely causing her decline in mental status and contributing to falls See note above, #1 Status: Acute (6) Physical deconditioning: Problem details: PT, OT consultation Status: Acute (7) Heart failure: Problem details: Ejection fraction of 50%. Status post mitral valve surgery. Patient appears to have mild volume overload with peripheral edema and bilateral pleural effusions. Pleural effusions may be residual from open-heart surgery 8 weeks ago. Clinically improved today with diuresis. 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 Clinically she appears to have some mild heart failure exacerbation as well. Increased diuretics if possible. Limited by refusal to take potassium - now taking oral potassium Status: Acute (9) Hypokalemia: Problem details: Initially refusing oral potassium. Now appears to be accepting of need for oral potassium. Improving, continue scheduled dosing Status: Acute (10) Pacemaker: Problem details: Currently in paced rhythm with a rate of 60 Status: Acute (11) Status post mitral valve replacement: Problem details: [facility] 08/20/2024 Status: Acute (12) Atrial fibrillation: Problem details: On anticoagulation and rate control. Currently paced rhythm of 60. On amiodarone. Plan was to have her have a cardioversion next week. She currently appears in AFib with a paced rhythm of 60. May not need cardioversion. Status: Acute (13) Anticoagulated with warfarin: Problem details: -daily PT INR with pharmacy consultation for dosing while in hospital with goal of 2-3. INR has been >4 thus far, holding warfarin Status: Acute (14) Emotional distress: Problem details: Patient reports coping poorly with her current health status since her heart surgery in August. Continue to manage mental health issues and medications. Continue supportive cares and goal directed therapy for recovery from surgery. Continue to monitor with multiple changes in medications Status: Acute (15) Anxiety: Problem details: Patient very anxious about current health status, symptoms, prognosis, disposition plans. P.r.n. lorazepam for now. Due to fall risk would recommend no ongoing benzodiazepines Status: Acute (16) Depression: Problem details: Longstanding problem. Continue to monitor on adjusted doses of medications Status: Acute (17) Chronic pain: Problem details: She reports chronic neck and mid back pain ongoing. Continue outpatient pain management. On Lyrica Status: Acute (18) Anemia: Problem details: -chronic, monitor Status: Acute (19) Intractable nausea and vomiting: Problem details: Acute on chronic problem. Ondansetron has not been effective. Lorazepam has been added. Compazine is contraindicated due to dystonic reaction. Status: Acute (20) Discharge planning issues: Problem details: With frequent falls and high need for care may need rehab stay prior to returning to [facility] donor services technician assisting - [facility] assessing - concern for nausea reported though this is chronic, intermittent, managed with medications as needed Status: Acute (21) Dysphagia: Problem details: Acute on chronic recurrent, 10/12 noted to choke while eating scrambled eggs this morning Reports mild choking episodes at least twice weekly, more severe episodes may be once weekly Previous swallow evaluations - aware of which foods she should avoid but is not always compliant Recommendations from yolanda 08/2024 at [facility]: 1) IDDSI Level 6 - Soft/Bite sized 2) Thin liquids 3) Meds with sips or whole in applesauce 4) 1:1 Assistance for all PO - emphasis on set-up and pacing with SLOW RATE and frequent breaks during meals DENITRATOR re-evaluated, recommendations remain the same Status: Acute Plan Awaiting placement Time Spent With Patient Total time spent: Total time spent caring for the patient today was 45 minutes. This includes time spent for the visit reviewing the chart, time spent during the visit, time spent after the visit and documentation and planning in coordination of care. Subjective Date Seen: 10/14/24 Interval history: Patient is seen sitting up in a chair this morning. Seems slightly more confused. Speaks about nothing is being done for her, wonders why she continues to wait here. Worries that her pacemaker isn't working. Easily redirectable. Denies headache or dizziness. Denies chest pain or shortness of breath. Reports left-sided ribcage pain and left shoulder pain improving. No events reported overnight. Exam Narrative: Exam Narrative: PHYSICAL EXAM General: More anxious this morning, otherwise NAD Cardiovascular: RRR paced Pulmonary: CTA bilaterally without rhonchi, rales, expiratory wheezes. No dyspnea Neurological: Alert, more mildly confused this morning, cranial nerves intact, no focal findings Extremities: LUE with swelling throughout, notably at the elbow, improved around shoulder this morning. No hand wrist or elbow bony tenderness. Shoulder is tender at the AC joint. Pain with PROM at the shoulder. Otherwise AROMI. Neurovascularly intact Skin: Warm, dry. Const: Vital Signs, click to edit/add: Vital Signs - 24 hr 10/13/24 15:29 10/13/24 15:39 10/13/24 15:39 Temperature 98.1 F Pulse Rate 60 Pulse Rate [Pulse Oximeter] 60 60 Respiratory Rate 14 14 Blood Pressure [Le ft Arm] Blood Pressure [Ri ght Arm] 129/65 Pulse Oximetry 99 Oxygen Delivery Me thod Room Air 10/13/24 15:39 10/13/24 22:24 10/13/24 23:06 Temperature 98.1 F Pulse Rate 60 Pulse Rate [Pulse Oximeter] 59 L Respiratory Rate 14 18 Blood Pressure [Le ft Arm] Blood Pressure [Ri ght Arm] 118/69 Pulse Oximetry 99 99 Oxygen Delivery Me thod Room Air Room Air 10/14/24 00:06 10/14/24 01:50 10/14/24 03:19 Temperature 98.0 F Pulse Rate Pulse Rate [Pulse Oximeter] 60 60 Respiratory Rate 18 12 16 Blood Pressure [Le ft Arm] 116/60 Blood Pressure [Ri ght Arm] 106/79 Pulse Oximetry 99 98 93 Oxygen Delivery Me thod Room Air Room Air Room Air 10/14/24 07:00 10/14/24 07:00 10/14/24 09:55 Temperature 98.0 F Pulse Rate Pulse Rate [Pulse Oximeter] 60 60 Respiratory Rate 16 16 16 Blood Pressure [Le ft Arm] 116/60 Blood Pressure [Ri ght Arm] Pulse Oximetry 94 94 Oxygen Delivery Me thod Room Air Room Air 10/14/24 11:00 Temperature 98.0 F Pulse Rate Pulse Rate [Pulse Oximeter] 60 Respiratory Rate 16 Blood Pressure [Le ft Arm] 113/72 Blood Pressure [Ri ght Arm] Pulse Oximetry 96 Oxygen Delivery Me thod Room Air Labs Labs: Laboratory Results - last 24 hr 10/14/24 06:14 INR 3.54 H Sodium 134 L Potassium 3.7 Chloride 101 Carbon Dioxide 28 Anion Gap 5 L BUN 17 Creatinine 1.0 Estimated Creat Clear 36.12 Estimated GFR 58 Glucose 85 Calcium 8.2 L
--- NOTE | 2024-10-14 15:52 | PC.SOCIAL ---
Discharge planning: Met with pt who is disappointed she was not accepted to [facility] for short term rehab. She is in agreement she can not return to [facility] until she has more rehab and requested social service technician look for placement in any facility, preferably near [place]. Pt states she has heard good things about [facility] and [facility]. freezer worker to follow up as needed.
[2024-10-14] MEDS: LIDOCAINE 5% PATCH 1 PATCH TRANSDERMA (18:42)
[2024-10-14] MEDS: QUETIAPINE 25 MG TABLET PO (21:33)
[2024-10-14] MEDS: PREGABALIN 75 MG CAPSULE 150 MG PO (21:54)
[2024-10-15] VITALS (10 sets, daily range): BP systolic 112–138; BP diastolic 63–80; PULSE 58–64; RESP 14–18; TEMP 36.4–37; O2SAT 93–99
[2024-10-15] MEDS: ACETAMINOPHEN 325 MG TABLET 650 MG PO ×3 (05:14→18:15)
--- NOTE | 2024-10-15 06:33 | PC.NURSE ---
end of shift [id number]: A&O. VSS. Denies pain. Up w/ SBA, walker and gait belt. Tolerated well. Upon initial assessment pt reported some nausea. Throughout the rest of the night pt denies nausea and able to eat some saltines and bahman scotty which she tolerated well. Using call light appropriately.
[2024-10-15 07:25] LABS: INR 2.59 (0.91-1.10); Prothrombin Time 29.7 Seconds
[2024-10-15 07:29] LABS: Chloride* 100 mmol/L (96-114); Potassium* 3.6 mmol/L (3.6-5.1); Sodium* 132 mmol/L (135-149)
[2024-10-15 07:32] LABS: Anion Gap 6 mEq/L (7-15); Carbon Dioxide* 26 mmol/L (20-32); Creatinine* 0.9 mg/dL (0.5-1.5); Est. Creatinine Clearance* 36.12; Estimated Glomerular Filt Rate 66 ml/min
[2024-10-15 07:33] LABS: Blood Urea Nitrogen* 13 mg/dL (7-30); Calcium* 8.3 mg/dL (8.4-10.6); Glucose* 89 mg/dL (60-115)
[2024-10-15] MEDS: polyethylene glycoL 3350 17 GM PACK PO (09:11)
[2024-10-15] MEDS: PRAMIPEXOLE 0.125 MG TABLET PO ×3 (09:12→21:18)
[2024-10-15] MEDS: AMIODARONE 200 MG TABLET PO (09:12)
[2024-10-15] MEDS: POTASSIUM CHLORIDE 10 MEQ CAPSULE ER 20 MEQ PO ×2 (09:12→21:18)
[2024-10-15] MEDS: ASPIRIN 81 MG TABLET EC PO (09:12)
[2024-10-15] MEDS: LEVOTHYROXINE 88 MCG TABLET PO (09:12)
[2024-10-15] MEDS: LOSARTAN POTASSIUM 50 MG TABLET PO (09:12)
[2024-10-15] MEDS: SPIRONOLACTONE 25 MG TABLET PO (09:12)
[2024-10-15] MEDS: PREGABALIN 75 MG CAPSULE PO (09:12)
[2024-10-15] MEDS: DOXYCYCLINE HYCLATE 100 MG PO ×2 (09:12→21:18)
[2024-10-15] MEDS: ESCITALOPRAM 10 MG TABLET 15 MG PO (09:12)
[2024-10-15] MEDS: LACTOBACILLUS ACIDOPHILUS 1 TABLET 1 TAB PO ×3 (09:13→17:43)
[2024-10-15] MEDS: TORSEMIDE 20 MG TABLET PO (09:13)
[2024-10-15] MEDS: ROSUVASTATIN CALCIUM 10 MG TABLET PO (09:13)
[2024-10-15] MEDS: OMEPRAZOLE 20 MG CAPSULE DR PO (09:13)
[2024-10-15] MEDS: SODIUM CHLORIDE 0.9 % (FLUSH) 10 ML SYRINGE 5 ML IVF ×2 (09:13→21:24)
--- NOTE | 2024-10-15 10:51 | PC.SOCIAL ---
Addendum entered by LALA Crews 10/15/24 16:30: Discharge planning: Pt has been accepted to [facility] private room for short term rehab for admit at noon. Met with pt who is agreeable to this plan but is hoping something will open up at [facility] prior to discharge. cleaning and maintenance worker will continue to check on availability elsewhere, but current plan is for pt to discharge to [facility] on for short term rehab. cleaning and maintenance worker checked with facilities in [place], [facility] and [place] regarding bed availability. Pt was declined at all of these facilities except for [facility]. cleaning and maintenance worker to follow up as needed. Original Note: Discharge planning: cleaning and maintenance worker had sent referral to [facility] and received call back stating they are unable to meet pt's needs. Secure emailed referral to Graham in admissions for [place] facilities requesting evaluation for admit to [facility], [facility] and [facility] at [place]. Awaiting call back with decision on admit.
[2024-10-15] MEDS: ONDANSETRON ODT 4 MG TAB PO (14:22)
--- NOTE | 2024-10-15 14:33 | PC.NURSE ---
End of shift report: Patient has been up in chair most of today. Pleaseant and alert and oriented. Has concerns about her medications that could be causing nausea. Also worried about how many she is taking at one time. Consulted pharmacy for assistance with this. They did move a few medication times around per her request. Patient ambulated in halls X2 today and did get washed up at bedside. Ate half of her breakfast and lunch. Had a large continent BM. Voiding without difficulty. Patient remains A-paced on tele. Incision sites from past surgeries are clean, dry and intact. Bruising on buttocks is healing. PIV patent and intact. Waiting for placement at this time.
--- NOTE | 2024-10-15 15:50 | P.IMPN_ITS ---
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 Medications will be readjusted to be close to what the psychiatrist at [facility] recommended - note 09/03/24 reviewed: Escitalopram 15 mg daily Venlafaxine 150 mg nightly Was not restarted on previous olanzapine, valproic acid. Avoid use of hydroxyzine, bupropion, trazodone Continuing to monitor for improvement - stable, intermittently labile 10/15 - notable improvement by staff, therapies. Appears to be at baseline. Appropriate to return to [facility]. Would point out that with patient's anxiety and depression she has been notably, appropriately labile at times which would not be unexpected. Status: Acute (2) Falls frequently: Problem details: Patient reports this problem started after heart surgery on 08/20/2024. Since then she has been falling, weak, poor balance. Discharged to [facility] on September 30 where she continues to have problems with falling Fall on 10/08 resulting in left sided ribcage pain, left shoulder pain, right hip pain PT/OT consults, psychologist social for placement/discharge needs Progressing, appropriate for return to [facility] Status: Acute (3) Left-sided chest wall pain: Problem details: -status post fall 10/08/2024 with negative radiographic assessments. Has some swelling across chest as well as into left arm -pain and swelling continuing to improve Swelling and pain improving Status: Acute (4) Left shoulder pain: Problem details: S/p fall on 10/08. Tenderness over AC joint with moderate swelling through arm Shoulder x-ray shows No acute fracture or malalignment.There are some mild osteoarthritic degenerative changes of the acromioclavicular joint. No significant osteoarthritic degenerative changes of the glenohumeral joint. No suspicious osseous lesions. Likely small benign bone island in the humeral head. The soft tissues are without acute abnormality Symptomatic cares, elevation for swelling Swelling and pain improving with symptomatic cares Status: Acute (5) Polypharmacy: Problem details: Patient had polypharmacy prior to admission at [facility]. Psychiatrist there address this by stopping and reducing doses of most of her psychoactive medications. Unfortunately these were restarted at discharge likely causing her decline in mental status and contributing to falls See note above, #1 Will be discharged with appropriately reduced medications Status: Acute (6) Physical deconditioning: Problem details: PT, OT consultation Status: Acute (7) Heart failure: Problem details: Ejection fraction of 50%. Status post mitral valve surgery. Patient appears to have mild volume overload with peripheral edema and bilateral pleural effusions. Pleural effusions may be residual from open-heart surgery 8 weeks ago. Clinically improved today with diuresis. 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 Clinically she appears to have some mild heart failure exacerbation as well. Increased diuretics if possible. Limited by refusal to take potassium - now taking oral potassium Status: Acute (9) Hypokalemia: Problem details: Initially refusing oral potassium. Now appears to be accepting of need for oral potassium. Improving, continue scheduled dosing Labs as needed Status: Acute (10) Pacemaker: Problem details: Currently in paced rhythm with a rate of 60 Status: Acute (11) Status post mitral valve replacement: Problem details: Deysi Almeida 08/20/2024 Status: Acute (12) Atrial fibrillation: Problem details: On anticoagulation and rate control. Currently paced rhythm of 60. On amiodarone. Plan was to have her have a cardioversion next week. She currently appears in AFib with a paced rhythm of 60. May not need cardioversion. Status: Acute (13) Anticoagulated with warfarin: Problem details: -daily PT INR with pharmacy consultation for dosing while in hospital with goal of 2-3. INR has been >4 thus far, holding warfarin 10/15 INR 2.59, will resume Coumadin dosing, pharmacy managing Status: Acute (14) Emotional distress: Problem details: Patient reports coping poorly with her current health status since her heart surgery in August. Continue to manage mental health issues and medications. Continue supportive cares and goal directed therapy for recovery from surgery. Continue to monitor with multiple changes in medications Status: Acute (15) Anxiety: Problem details: Patient very anxious about current health status, symptoms, prognosis, disposition plans. P.r.n. lorazepam for now. Due to fall risk would recommend no ongoing benzodiazepines Status: Acute (16) Depression: Problem details: Longstanding problem. Continue to monitor on adjusted doses of medications Status: Acute (17) Chronic pain: Problem details: She reports chronic neck and mid back pain ongoing. Continue outpatient pain management. On Lyrica Status: Acute (18) Anemia: Problem details: -chronic, monitor Status: Acute (19) Intractable nausea and vomiting: Problem details: Acute on chronic problem. Ondansetron has not been effective. Lorazepam has been added. Compazine is contraindicated due to dystonic reaction. Likely a symptom of her anxiety/depression, intermittent, improves with mood. Status: Acute (20) Discharge planning issues: Problem details: With frequent falls and high need for care may need rehab stay prior to returning to [facility] outpatient services director assisting - [employer] assessing - concern for nausea reported though this is chronic, intermittent, managed with medications as needed As of 10/15, therapies believe patient would be appropriate to return to [facility]. I am in agreement with this. Medically stable for discharge Status: Acute (21) Dysphagia: Problem details: Acute on chronic recurrent, 10/12 noted to choke while eating scrambled eggs this morning Reports mild choking episodes at least twice weekly, more severe episodes may be once weekly Previous swallow evaluations - aware of which foods she should avoid but is not always compliant Recommendations from eval 08/2024 at [facility]: 1) IDDSI Level 6 - Soft/Bite sized 2) Thin liquids 3) Meds with sips or whole in applesauce 4) 1:1 Assistance for all PO - emphasis on set-up and pacing with SLOW RATE and frequent breaks during meals QUALITY ENGINEERING MANAGER re-evaluated, recommendations remain the same Status: Acute Plan Awaiting placement Time Spent With Patient Total time spent: Total time spent caring for the patient today was 45 minutes. This includes time spent for the visit reviewing the chart, time spent during the visit, time spent after the visit and documentation and planning in coordination of care. Subjective Date Seen: 10/15/24 Interval history: Patient is seen ambulating with the nurse today. Doing well. No confusion this morning. Therapy is reporting noted improvement physically and mentally, would be appropriate to return to [facility]. No events reported overnight. Remains afebrile, vitally stable. Awaiting placement. Exam Narrative: Exam Narrative: PHYSICAL EXAM General: Calm smiling appropriately conversant, NAD Cardiovascular: RRR paced Pulmonary: CTA bilaterally without rhonchi, rales, expiratory wheezes. No dyspnea Neurological: Alert, cranial nerves intact, no focal findings Extremities: LUE with swelling throughout, notably at the elbow, improved around shoulder this morning. No hand wrist or elbow bony tenderness. Shoulder is tender at the AC joint. Pain with PROM at the shoulder. Otherwise AROMI. Neurovascularly intact Skin: Warm, dry. Const: Vital Signs, click to edit/add: Vital Signs - 24 hr 10/14/24 19:00 10/14/24 23:00 10/14/24 23:06 Temperature 97.6 F 97.3 F L Pulse Rate 59 L Pulse Rate [Pulse Oximeter] 61 60 Respiratory Rate 18 16 Blood Pressure [Ri ght Arm] 134/80 120/63 Pulse Oximetry 98 96 Oxygen Delivery Me thod Room Air Room Air 10/14/24 23:39 10/15/24 03:00 10/15/24 07:37 Temperature 98.2 F Pulse Rate Pulse Rate [Pulse Oximeter] 61 61 Respiratory Rate 16 18 16 Blood Pressure [Ri ght Arm] 112/63 119/80 Pulse Oximetry 96 93 96 Oxygen Delivery Me thod Room Air Room Air Room Air 10/15/24 09:51 10/15/24 11:06 10/15/24 11:32 Temperature 97.6 F Pulse Rate 58 L Pulse Rate [Pulse Oximeter] Respiratory Rate Blood Pressure [Ri ght Arm] Pulse Oximetry 96 Oxygen Delivery Me thod Room Air 10/15/24 11:34 Temperature 97.6 F Pulse Rate Pulse Rate [Pulse Oximeter] 60 Respiratory Rate 16 Blood Pressure [Ri ght Arm] 135/68 Pulse Oximetry 98 Oxygen Delivery Me thod Room Air Labs Labs: Laboratory Results - last 24 hr 10/15/24 06:07 INR 2.59 H Sodium 132 L Potassium 3.6 Chloride 100 Carbon Dioxide 26 Anion Gap 6 L BUN 13 Creatinine 0.9 Estimated Creat Clear 36.12 Estimated GFR 66 Glucose 89 Calcium 8.3 L
[2024-10-15] MEDS: WARFARIN 3 MG TABLET PO (16:56)
--- NOTE | 2024-10-15 18:50 | PC.NURSE ---
End of Shift [id number]: Patient pleasant and cooperative, alert and oriented. Patient vitally stable, lungs clear, BS WNL, IV SL and intact. Patient SBA with walker. Patient rated pain across chest 4/10, scheduled tylenol given. Patient given zophran once for nausea. Patient slowly eating dinner eating about 50%. Patient up in chair and went on one walk.
[2024-10-15] MEDS: LIDOCAINE 5% PATCH 1 PATCH TRANSDERMA (19:43)
[2024-10-15] MEDS: VENLAFAXINE ER 75 MG CAPSULE 150 MG PO (21:18)
[2024-10-15] MEDS: PREGABALIN 75 MG CAPSULE 150 MG PO (21:18)
[2024-10-15] MEDS: LORazepam 2 MG/ML inj 0.5 MG IVP (21:33)
[2024-10-16] VITALS (7 sets, daily range): BP systolic 92–143; BP diastolic 63–73; PULSE 60–61; RESP 16–20; TEMP 36.3–36.7; O2SAT 93–100
--- NOTE | 2024-10-16 05:49 | PC.NURSE ---
End of shift report [id number]: Pleasant and cooperative with cares. Patient reports pain to left hand, pain well managed with current regimen. Patient has reports of pain to various parts of her body, appears to migrate to different areas each time patient is asked. Reports nausea, no vomiting this shift. Transfers and ambulates with SBA with walker, patient impulsive and does not use call light appropriately, bed and chair alarm utilized for safety.
[2024-10-16] MEDS: ONDANSETRON ODT 4 MG TAB PO (06:46)
[2024-10-16] MEDS: LEVOTHYROXINE 88 MCG TABLET PO (06:47)
[2024-10-16] MEDS: ASPIRIN 81 MG TABLET EC PO (09:03)
[2024-10-16] MEDS: polyethylene glycoL 3350 17 GM PACK PO (09:03)
[2024-10-16] MEDS: POTASSIUM CHLORIDE 10 MEQ CAPSULE ER 20 MEQ PO ×2 (09:03→20:33)
[2024-10-16] MEDS: ESCITALOPRAM 10 MG TABLET 15 MG PO (09:04)
[2024-10-16] MEDS: SPIRONOLACTONE 25 MG TABLET PO (09:04)
[2024-10-16] MEDS: LACTOBACILLUS ACIDOPHILUS 1 TABLET 1 TAB PO ×3 (09:04→17:39)
[2024-10-16] MEDS: DOXYCYCLINE HYCLATE 100 MG PO ×2 (09:04→20:34)
[2024-10-16] MEDS: ROSUVASTATIN CALCIUM 10 MG TABLET PO (09:04)
[2024-10-16] MEDS: PRAMIPEXOLE 0.125 MG TABLET PO ×3 (09:05→20:35)
[2024-10-16] MEDS: LOSARTAN POTASSIUM 50 MG TABLET PO (09:05)
[2024-10-16] MEDS: TORSEMIDE 20 MG TABLET PO (09:05)
[2024-10-16] MEDS: PREGABALIN 75 MG CAPSULE PO (09:05)
[2024-10-16] MEDS: AMIODARONE 200 MG TABLET PO (09:05)
[2024-10-16] MEDS: SODIUM CHLORIDE 0.9 % (FLUSH) 10 ML SYRINGE 5 ML IVF ×2 (09:05→20:35)
[2024-10-16] MEDS: ACETAMINOPHEN 325 MG TABLET 650 MG PO ×3 (12:08→19:20)
[2024-10-16 13:35] LABS: INR 2.16 (0.91-1.10); Prothrombin Time 25.7 Seconds
--- NOTE | 2024-10-16 13:58 | P.IMPN_ITS ---
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 Medications will be readjusted to be close to what the psychiatrist at [facility] recommended - note 09/03/24 reviewed: Escitalopram 15 mg daily Venlafaxine 150 mg nightly Was not restarted on previous olanzapine, valproic acid. Avoid use of hydroxyzine, bupropion, trazodone Continuing to monitor for improvement - stable, intermittently labile 10/15 - notable improvement by staff, therapies. Appears to be at baseline. Appropriate to return to [facility]. Would point out that with patient's anxiety and depression she has been notably, appropriately labile at times which would not be unexpected. Status: Acute (2) Falls frequently: Problem details: Patient reports this problem started after heart surgery on 08/20/2024. Since then she has been falling, weak, poor balance. Discharged to [facility] on September 30 where she continues to have problems with falling Fall on 10/08 resulting in left sided ribcage pain, left shoulder pain, right hip pain PT/OT consults, social sciences chair for placement/discharge needs Progressing, appropriate for return to [facility] Status: Acute (3) Left-sided chest wall pain: Problem details: -status post fall 10/08/2024 with negative radiographic assessments. Has some swelling across chest as well as into left arm -pain and swelling continuing to improve Swelling and pain improving Status: Acute (4) Left shoulder pain: Problem details: S/p fall on 10/08. Tenderness over AC joint with moderate swelling through arm Shoulder x-ray shows No acute fracture or malalignment.There are some mild osteoarthritic degenerative changes of the acromioclavicular joint. No significant osteoarthritic degenerative changes of the glenohumeral joint. No suspicious osseous lesions. Likely small benign bone island in the humeral head. The soft tissues are without acute abnormality Symptomatic cares, elevation for swelling, gentle range of motion Swelling and pain improving with symptomatic cares Status: Acute (5) Polypharmacy: Problem details: Patient had polypharmacy prior to admission at [facility]. Psychiatrist there address this by stopping and reducing doses of most of her psychoactive medications. Unfortunately these were restarted at discharge likely causing her decline in mental status and contributing to falls See note above, #1 Will be discharged with appropriately reduced medications Status: Acute (6) Physical deconditioning: Problem details: PT, OT consultation Status: Acute (7) Heart failure: Problem details: Ejection fraction of 50%. Status post mitral valve surgery. Patient appears to have mild volume overload with peripheral edema and bilateral pleural effusions. Pleural effusions may be residual from open-heart surgery 8 weeks ago. Clinically improved today with diuresis. 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 Clinically she appears to have some mild heart failure exacerbation as well. Increased diuretics if possible. Limited by refusal to take potassium - now taking oral potassium Status: Acute (9) Hypokalemia: Problem details: Initially refusing oral potassium. Now appears to be accepting of need for oral potassium. Improving, continue scheduled dosing Labs as needed Status: Acute (10) Pacemaker: Problem details: Currently in paced rhythm with a rate of 60 Status: Acute (11) Status post mitral valve replacement: Problem details: [facility] 08/20/2024 Status: Acute (12) Atrial fibrillation: Problem details: On anticoagulation and rate control. Currently paced rhythm of 60. On amiodarone. Plan was to have her have a cardioversion next week. She currently appears in AFib with a paced rhythm of 60. May not need cardioversion. Status: Acute (13) Anticoagulated with warfarin: Problem details: -daily PT INR with pharmacy consultation for dosing while in hospital with goal of 2-3. INR has been >4 thus far, holding warfarin 10/15 INR 2.59, will resume Coumadin dosing, pharmacy managing Status: Acute (14) Emotional distress: Problem details: Patient reports coping poorly with her current health status since her heart surgery in August. Continue to manage mental health issues and medications. Continue supportive cares and goal directed therapy for recovery from surgery. Continue to monitor with multiple changes in medications Status: Acute (15) Anxiety: Problem details: Patient very anxious about current health status, symptoms, prognosis, disposition plans. P.r.n. lorazepam for now. Due to fall risk would recommend no ongoing benzodiazepines Status: Acute (16) Depression: Problem details: Longstanding problem. Continue to monitor on adjusted doses of medications Status: Acute (17) Chronic pain: Problem details: She reports chronic neck and mid back pain ongoing. Continue outpatient pain management. On Lyrica Status: Acute (18) Anemia: Problem details: -chronic, monitoring. Ongoing outpatient management. Status: Acute (19) Intractable nausea and vomiting: Problem details: Acute on chronic problem. Ondansetron has not been effective. Lorazepam has been added. Compazine is contraindicated due to dystonic reaction. Likely a symptom of her anxiety/depression, intermittent, improves with mood. Status: Acute (20) Discharge planning issues: Problem details: With frequent falls and high need for care may need rehab stay prior to returning to [facility] food services manager assisting - [employer] assessing - concern for nausea reported though this is chronic, intermittent, managed with medications as needed As of 10/15, therapies believe patient would be appropriate to return to [facility]. I am in agreement with this. Medically stable for discharge Status: Acute (21) Dysphagia: Problem details: Acute on chronic recurrent, 10/12 noted to choke while eating scrambled eggs this morning Reports mild choking episodes at least twice weekly, more severe episodes may be once weekly Previous swallow evaluations - aware of which foods she should avoid but is not always compliant Recommendations from eval 08/2024 at [facility]: 1) IDDSI Level 6 - Soft/Bite sized 2) Thin liquids 3) Meds with sips or whole in applesauce 4) 1:1 Assistance for all PO - emphasis on set-up and pacing with SLOW RATE and frequent breaks during meals SUSTAINABILITY COMMUNICATOR re-evaluated, recommendations remain the same Status: Acute Plan Awaiting placement, likely [facility] in [place] on 10/17/2024 Time Spent With Patient Total time spent: Total time spent caring for the patient today was 45 minutes. This includes time spent for the visit reviewing the chart, time spent during the visit, time spent after the visit and documentation and planning in coordination of care. Subjective Date Seen: 10/16/24 Interval history: Patient is seen sitting up in a chair this morning. Continues to improve. Emotionally improving as well, less labile. Denies headache or dizziness. Denies chest pain or shortness of breath. Remains afebrile. Left upper extremity pain improving, swelling improving. Continues to work with therapies. Possible discharge to [facility] on 10/17/2024 Exam Narrative: Exam Narrative: PHYSICAL EXAM General: Pleasant, conversant, NAD Cardiovascular: RRR paced Pulmonary: CTA bilaterally without rhonchi, rales, expiratory wheezes. No dyspnea Neurological: Alert, cranial nerves intact, no focal findings Extremities: LUE with swelling - improving. No hand wrist or elbow bony tenderness. Neurovascularly intact Skin: Warm, dry. Const: Vital Signs, click to edit/add: Vital Signs - 24 hr 10/15/24 15:45 10/15/24 15:45 10/15/24 15:45 Temperature 98 F Pulse Rate [Pulse Oximeter] 60 60 Respiratory Rate 16 16 14 Blood Pressure [Le ft Arm] Blood Pressure [Ri ght Arm] 134/67 Pulse Oximetry 98 99 Oxygen Delivery Me thod Room Air Room Air 10/15/24 19:00 10/15/24 23:00 10/15/24 23:00 Temperature 98.6 F Pulse Rate [Pulse Oximeter] 64 58 L Respiratory Rate 18 16 16 Blood Pressure [Le ft Arm] 138/72 Blood Pressure [Ri ght Arm] Pulse Oximetry 94 93 Oxygen Delivery Me thod Room Air Room Air 10/15/24 23:00 10/15/24 23:30 10/16/24 04:33 Temperature 98.3 F Pulse Rate [Pulse Oximeter] 58 L Respiratory Rate 16 16 16 Blood Pressure [Le ft Arm] Blood Pressure [Ri ght Arm] 132/74 Pulse Oximetry 93 Oxygen Delivery Me thod Room Air 10/16/24 07:00 10/16/24 07:00 10/16/24 07:00 Temperature 97.8 F Pulse Rate [Pulse Oximeter] 60 60 Respiratory Rate 16 18 18 Blood Pressure [Le ft Arm] Blood Pressure [Ri ght Arm] 92/63 Pulse Oximetry 93 95 Oxygen Delivery Az thod Room Air Room Air 10/16/24 11:00 Temperature 98.1 F Pulse Rate [Pulse Oximeter] 60 Respiratory Rate 16 Blood Pressure [Le ft Arm] Blood Pressure [Ri ght Arm] 143/69 H Pulse Oximetry 97 Oxygen Delivery Me thod Room Air Labs Labs: Laboratory Results - last 24 hr 10/16/24 13:09 INR 2.16 H
--- NOTE | 2024-10-16 15:40 | PC.NURSE ---
[id number]: Pt alert, oriented and vitally stable. Pt had complaints of mild nausea, prn zofran given, pt stated improvement. Pt expressed anxiety throughout shift, staff deescalated, pt stated improvement. Pt moves via SBA, tolerates well. lidocane patch removed from pt hand. Pt in chair, call light within reach.
[2024-10-16] MEDS: WARFARIN 3 MG TABLET PO (17:05)
[2024-10-16] MEDS: LIDOCAINE 5% PATCH 1 PATCH TRANSDERMA (18:50)
[2024-10-16] MEDS: VENLAFAXINE ER 75 MG CAPSULE 150 MG PO (20:34)
[2024-10-16] MEDS: PREGABALIN 75 MG CAPSULE 150 MG PO (20:34)
--- NOTE | 2024-10-16 23:27 | PC.NURSE ---
End of shift: Pt AxOx4, cooperative, and pleasant. VS stable. Pt stated I am always nauseous - refused PRN medication. 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 Relief noted. Pt moves via SBA, tolerates well. Pt tolerating reg diet/fluids well. SL. Pt in chair, call light within reach.
[2024-10-16] MEDS: QUETIAPINE 25 MG TABLET PO (23:48)
[2024-10-17 03:00] VITALS: RESP 18
[2024-10-17 06:00] VITALS: RESP 16
[2024-10-17] MEDS: LEVOTHYROXINE 88 MCG TABLET PO (06:27)
[2024-10-17 07:00] VITALS: BP 111/56; PULSE 60; RESP 18; TEMP 36.5; O2SAT 93; O2SAT 98
--- NOTE | 2024-10-17 07:38 | PC.NURSE ---
Pt alert and oriented x3. Afebrile. Pt slept in bed throughout most of night. Pt is up SBA with walker and gait belt, voiding and tolerating a regular diet. Night uneventful.
[2024-10-17 07:48] LABS: INR 2.42 (0.91-1.10); Prothrombin Time 28.1 Seconds
[2024-10-17] MEDS: ESCITALOPRAM 10 MG TABLET 15 MG PO (09:41)
[2024-10-17] MEDS: LACTOBACILLUS ACIDOPHILUS 1 TABLET 1 TAB PO ×2 (09:41→12:37)
[2024-10-17] MEDS: ROSUVASTATIN CALCIUM 10 MG TABLET PO (09:42)
[2024-10-17] MEDS: TORSEMIDE 20 MG TABLET PO (09:42)
[2024-10-17] MEDS: SPIRONOLACTONE 25 MG TABLET PO (09:42)
[2024-10-17] MEDS: AMIODARONE 200 MG TABLET PO (09:42)
[2024-10-17] MEDS: PRAMIPEXOLE 0.125 MG TABLET PO (09:42)
[2024-10-17] MEDS: DOXYCYCLINE HYCLATE 100 MG PO (09:43)
[2024-10-17] MEDS: LOSARTAN POTASSIUM 50 MG TABLET PO (09:43)
[2024-10-17] MEDS: POTASSIUM CHLORIDE 10 MEQ CAPSULE ER 20 MEQ PO (09:43)
[2024-10-17] MEDS: PREGABALIN 75 MG CAPSULE PO (09:43)
[2024-10-17] MEDS: polyethylene glycoL 3350 17 GM PACK PO (09:43)
[2024-10-17] MEDS: ASPIRIN 81 MG TABLET EC PO (09:44)
[2024-10-17] MEDS: ONDANSETRON ODT 4 MG TAB PO (10:42)
[2024-10-17] MEDS: ACETAMINOPHEN 325 MG TABLET 650 MG PO (10:42)
--- NOTE | 2024-10-17 10:46 | PM.DS1 ---
DS: Providers Provider Date Seen: 10/17/24 Date of admission: 10/10/24 14:08 Primary care physician: Nellie Bear MD Admitting Clinician: Gray Sargent MD Consults: 10/08/24 20:35 Consult to [place] [CONS] Routine Comment: Reason for Consult:: Social Service Consult 10/08/24 20:50 Consult to Physical Therapy [CONS] Routine Comment: Reason(s) for PT Consult:: Evaluate and Treat Any Restrictions?:: No Restrictions Consult to [place] [CONS] Routine Comment: Reason for Consult:: Discharge Planning Needs 10/08/24 20:53 Consult to Occupational Therapy [CONS] Routine Comment: Reason(s) for OT Consult:: Evaluate and Treat Any Restrictions?:: No Restrictions 10/12/24 09:37 Consult to Speech Therapy [CONS] Routine Comment: Reason(s) for Speech Consult:: Speech/Swallowing Eval Attending Physician on discharge: OMA Aguilar, MICHEAL [facility] Date of Discharge: 10/17/24 DS: Diagnosis Discharge Diagnosis (1) Acute metabolic encephalopathy: Status: Acute Problem details: RESOLVED Suspected to be due to polypharmacy, especially multiple high dose SPORTS AGENT active drugs. Medications will be readjusted to be close to what the psychiatrist at [facility] recommended - note 09/03/24 reviewed: Escitalopram 15 mg daily Venlafaxine 150 mg nightly Was not restarted on previous olanzapine, valproic acid. Avoid use of hydroxyzine, bupropion, trazodone Continuing to monitor for improvement - stable, intermittently labile 10/15 - notable improvement by staff, therapies. Appears to be at baseline. Appropriate to return to [facility]. Would point out that with patient's anxiety and depression she has been notably, appropriately labile at times which would not be unexpected. Encephalopathy most likely related to medication sensitivities. As patient's medications were readjusted, encephalopathy significantly improved. With this emotional lability improved, nausea improved. Strength and mobility continue to improve. Patient is discharged with medication adjustments as outlined in discharge orders. Further recommendations per Psychiatry with specific avoidance of medications have been included. (2) Falls frequently: Status: Acute Problem details: Patient reports this problem started after heart surgery on 08/20/2024. Since then she has been falling, weak, poor balance. Discharged to [facility] on September 30 where she continues to have problems with falling Fall on 10/08 resulting in left sided ribcage pain, left shoulder pain, right hip pain PT/OT consults, social work job titles for placement/discharge needs Progressing, appropriate for return to [facility]. Continue therapies. (3) Left-sided chest wall pain: Status: Acute Problem details: -status post fall 10/08/2024 with negative radiographic assessments. Has some swelling across chest as well as into left arm -pain and swelling continuing to improve Swelling and pain improving. Continue therapies (4) Left shoulder pain: Status: Acute Problem details: S/p fall on 10/08. Tenderness over AC joint with moderate swelling through arm Shoulder x-ray shows No acute fracture or malalignment.There are some mild osteoarthritic degenerative changes of the acromioclavicular joint. No significant osteoarthritic degenerative changes of the glenohumeral joint. No suspicious osseous lesions. Likely small benign bone island in the humeral head. The soft tissues are without acute abnormality Symptomatic cares, elevation for swelling, gentle range of motion Swelling and pain improving with symptomatic cares. Continue therapies, Tylenol as needed, elevation, ice/heat. (5) Polypharmacy: Status: Acute Problem details: Patient had polypharmacy prior to admission at [facility]. Psychiatrist there address this by stopping and reducing doses of most of her psychoactive medications. Unfortunately these were restarted at discharge likely causing her decline in mental status and contributing to falls See note above, #1 Will be discharged with appropriately reduced medications (6) Physical deconditioning: Status: Acute Problem details: PT, OT consultation (7) Heart failure: Status: Acute Problem details: Ejection fraction of 50%. Status post mitral valve surgery. Patient appears to have mild volume overload with peripheral edema and bilateral pleural effusions. Pleural effusions may be residual from open-heart surgery 8 weeks ago. Clinically improved today with diuresis. Added spironolactone, losartan and torsemide Weight is down 10kg (8) Post cardiotomy syndrome: Status: Acute Problem details: This is a diagnosis at discharge from [facility]. Clinically she appears to have some mild heart failure exacerbation as well. Increased diuretics if possible. Limited by refusal to take potassium - now taking oral potassium (9) Hypokalemia: Status: Acute Problem details: Initially refusing oral potassium. Now appears to be accepting of need for oral potassium. Improving, continue scheduled dosing Labs as needed (10) Pacemaker: Status: Acute Problem details: Currently in paced rhythm with a rate of 60 (11) Status post mitral valve replacement: Status: Acute Problem details: Deysi Almeida 08/20/2024 (12) Atrial fibrillation: Status: Acute Problem details: On anticoagulation and rate control. Currently paced rhythm of 60. On amiodarone. Plan was to have her have a cardioversion next week. She currently appears in AFib with a paced rhythm of 60. May not need cardioversion. (13) Anticoagulated with warfarin: Status: Acute Problem details: -daily PT INR with pharmacy consultation for dosing while in hospital with goal of 2-3. INR has been >4 thus far, holding warfarin 10/15 INR 2.59, will resume Coumadin dosing, pharmacy managing (14) Emotional distress: Status: Acute Problem details: Patient reports coping poorly with her current health status since her heart surgery in August. Continue to manage mental health issues and medications. Continue supportive cares and goal directed therapy for recovery from surgery. Continue to monitor with multiple changes in medications (15) Anxiety: Status: Acute Problem details: Patient very anxious about current health status, symptoms, prognosis, disposition plans. P.r.n. lorazepam for now. Due to fall risk would recommend no ongoing benzodiazepines (16) Depression: Status: Acute Problem details: Longstanding problem. Continue to monitor on adjusted doses of medications (17) Chronic pain: Status: Acute Problem details: She reports chronic neck and mid back pain ongoing. Continue outpatient pain management. On Lyrica (18) Anemia: Status: Acute Problem details: -chronic, monitoring. Ongoing outpatient management. (19) Intractable nausea and vomiting: Status: Acute Problem details: Acute on chronic problem. Ondansetron has not been effective. Lorazepam has been added. Compazine is contraindicated due to dystonic reaction. Likely a symptom of her anxiety/depression, intermittent, improves with mood. (20) Discharge planning issues: Status: Acute Problem details: With frequent falls and high need for care may need rehab stay prior to returning to [facility] airfield services officer assisting - [employer] assessing - concern for nausea reported though this is chronic, intermittent, managed with medications as needed As of 10/15, therapies believe patient would be appropriate to return to [facility]. I am in agreement with this. Medically stable for discharge (21) Dysphagia: Status: Acute Problem details: Acute on chronic recurrent, 10/12 noted to choke while eating scrambled eggs this morning Reports mild choking episodes at least twice weekly, more severe episodes may be once weekly Previous swallow evaluations - aware of which foods she should avoid but is not always compliant Recommendations from yolanda 08/2024 at [facility]: 1) IDDSI Level 6 - Soft/Bite sized 2) Thin liquids 3) Meds with sips or whole in applesauce 4) 1:1 Assistance for all PO - emphasis on set-up and pacing with SLOW RATE and frequent breaks during meals PLATE GRAINER APPRENTICE re-evaluated, recommendations remain the same DS: Summary Hospital Course Hospital Course: Course of care and details as noted above. Remainder of chronic medical comorbidities were monitored and managed with home medications. Status at Discharge Functional status at discharge: uses cane/walker Overall status at discharge: patient is progressing back to baseline Time Spent with Patient Time attestation: Total time spent providing and/or coordinating discharge services: Time spent: Greater than 30 minutes Exam Narrative: Exam Narrative: PHYSICAL EXAM General: Pleasant, conversant, NAD Cardiovascular: RRR Pulmonary: No dyspnea Neurological: Alert, answering questions appropriately Skin: Warm, dry. Const: Vital Signs, click to edit/add: Vital Signs - 24 hr 10/16/24 11:00 10/16/24 15:00 10/16/24 15:00 Temperature 98.1 F 97.6 F Pulse Rate [Pulse Oximeter] 60 61 Respiratory Rate 16 16 16 Blood Pressure [Ri ght Arm] 143/69 H 126/64 Pulse Oximetry 97 100 100 Oxygen Delivery Me thod Room Air Room Air Room Air 10/16/24 18:43 10/16/24 23:30 10/16/24 23:44 Temperature 98 F 97.4 F L Pulse Rate [Pulse Oximeter] 60 60 Respiratory Rate 16 20 20 Blood Pressure [Ri ght Arm] 117/73 122/65 Pulse Oximetry 98 96 Oxygen Delivery Me thod Room Air Room Air 10/16/24 23:44 10/17/24 03:00 10/17/24 06:00 Temperature Pulse Rate [Pulse Oximeter] Respiratory Rate 20 18 16 Blood Pressure [Ri ght Arm] Pulse Oximetry 96 Oxygen Delivery Me thod Room Air Room Air 10/17/24 07:00 10/17/24 07:00 10/17/24 07:00 Temperature 97.7 F Pulse Rate [Pulse Oximeter] 60 60 Respiratory Rate 18 18 Blood Pressure [Ri ght Arm] 111/56 L Pulse Oximetry 98 93 Oxygen Delivery Me thod Room Air Room Air DS: Data Data Completed and Pending Labs on day of discharge: Labs from last 24 hours 10/17/24 10/16/24 07:18 13:09 INR 2.42 H 2.16 H Imaging Shoulder x-ray: Attestation: I have reviewed the pertinent imaging results. Radiologist's impression: No acute fracture or malalignment. There are some mild osteoarthritic degenerative changes of the acromioclavicular joint. No significant osteoarthritic degenerative changes of the glenohumeral joint. No suspicious osseous lesions. Likely small benign bone island in the humeral head. The soft tissues are without acute abnormality. Hip x-ray: Attestation: I have reviewed the pertinent imaging results. Radiologist's impression: Bones: Alignment is normal. No fractures or bone lesions. Joint spaces: Unremarkable. Soft tissues: Small heterotopic soft tissue ossification near the right greater trochanter are likely the result of an old injury. Impression: No sign of acute injury. CT scan - head: Attestation: I have reviewed the pertinent imaging results. Radiologist's impression: CSF spaces: Within normal limits for age. Brain parenchyma and extra-axial spaces: The hayes-white differentiation is normal. No sign of mass, hemorrhage, or midline shift. No extra-axial fluid collection. Skull base and calvarium: The visualized paranasal sinuses and mastoid air cells demonstrate no acute or significant findings. The visualized orbits are grossly unremarkable. No skull fractures. IMPRESSION: No acute intracranial process identified. CT Chest/Ab/Pelvis: Attestation: I have reviewed the pertinent imaging results. Radiologist's impression: CHEST: Cardiovascular structures: Cardiomegaly with coronary artery calcification. Thoracic aorta and main pulmonary artery are normal in caliber. Mediastinum and aman: No mass or adenopathy. Lungs and pleura: Small bilateral pleural effusions with basilar consolidations. No pneumothorax. Chest wall and axilla: Left chest wall generator pack. No mass or adenopathy. Bones: Upper thoracic posterior hardware fixation prior sternotomy. No acute fracture or dislocation. ABDOMEN AND PELVIS: Liver: Unremarkable. No sign of acute injury. Gallbladder and bile ducts: Cholecystectomy. Pancreas: Postsurgical changes about the pancreatic tail Spleen: Unremarkable. No sign of acute injury. Adrenal glands: Unremarkable. Kidneys: Unremarkable. GI tract: Moderate colonic stool burden. No bowel obstruction.. Vascular structures: Unremarkable. Mesenteric arteries are patent. Lymph nodes: Unremarkable. Miscellaneous: Unremarkable. No free air or significant free fluid. Pelvic Organs: Hysterectomy.. Bones: Prior posterior L5-S1 hardware fixation. IMPRESSION: No acute intrathoracic or intra-abdominal/pelvic abnormality. Small bilateral pleural effusions. Additional chronic findings as above. CT C-spine: Attestation: I have reviewed the pertinent imaging results. Radiologist's impression: Vertebrae: Alignment is normal. Near-complete cervical fixation. Orthopedic hardware appears to be intact without evidence of hardware fracture or loosening. Fusion of multiple cervical vertebral bodies. Diffuse demineralization. There are no definite fractures or suspicious bony lesions. Discs and facet joints: There are diffuse degenerative changes in the disc spaces and facet joints. Extraspinal findings: Paraspinous soft tissues are unremarkable. IMPRESSION: 1. No sign of acute injury. 2. Status post cervical fusion. Multilevel degenerative changes. Discharge Plan Discharge Disposition: [facility] Date of Admission: 10/10/24 14:08 Attending Provider on Discharge: Kim Roman Primary Care Provider: Nellie Bear Condition: Improved Anticipated Discharge Date/Time: 10/17/24 11:00 Discharge Medications: New losartan 50 mg Tablet 50 mg PO DAILY Qty: 30 0RF spironolactone 25 mg Tablet 25 mg PO DAILY Qty: 30 0RF aspirin 81 mg Tablet,Delayed Release (Dr/Ec) 81 mg PO DAILY Qty: 30 0RF lidocaine 5 % Adhesive Patch,Medicated 1 patch transdermal Q24H PRNQty: 10 0RF Rx Instructions: Left shoulder pain escitalopram oxalate 10 mg Tablet 15 mg PO DAILY Qty: 60 0RF Continued ondansetron HCl 4 mg tablet 4 mg PO Q4H PRN rizatriptan 10 mg tablet 10 mg PO BID PRN metronidazole 0.75 % cream 1 applic topical BID PRN cranberry 500 mg capsule 500 mg PO BID Rx Instructions: administer with meals doxycycline hyclate 100 mg capsule 100 mg PO BID torsemide 20 mg tablet 20 mg PO DAILY venlafaxine 150 mg capsule,extended release 24hr 150 mg PO HS levothyroxine 88 mcg tablet 88 mcg PO DAILY pantoprazole 40 mg tablet,delayed release (DR/EC) 40 mg PO DAILY pramipexole 0.125 mg tablet 0.125 mg PO TID estradiol 0.01 % (0.1 mg/gram) cream 0.5 appful vaginal 3XW sumatriptan succinate 6 mg/0.5 mL pen injector 6 mg subcut Q2H PRN rosuvastatin 10 mg tablet 10 mg PO HS polyethylene glycol 3350 [Laxative PEG 3350] 17 gram/dose powder 17 g PO DAILY quetiapine 50 mg tablet 25 mg PO QPM PRN warfarin 3 mg tablet 3 mg PO DAILY acetaminophen [Arthritis Pain Relief (acetam)] 650 mg tablet extended release 1,300 mg PO Q12H PRN cyanocobalamin (vitamin B-12) 1,000 mcg capsule 1,000 mcg PO DAILY Changed amiodarone 200 mg tablet 200 mg PO DAILY Qty: 30 0RF Patient Comments: 400 MG BID THROUGH 10/11/24 THEN 200 MG DAILY THEREAFTER. pregabalin 75 mg capsule 75 mg PO QAM Qty: 30 0RF pregabalin 150 mg capsule 150 mg PO QHS Qty: 30 0RF Discontinued escitalopram oxalate 20 mg tablet 15 mg PO DAILY Discharge Orders: Discharge Order (Routine); Ordered 10/17/24 Ordered By: Kim Roman Additional Instructions: Per Psychiatry at [facility]: Escitalopram 15 mg daily Venlafaxine 150 mg nightly Seroquel 25mg po q HS PRN - has been using during hospital course Discontinued olanzapine and valproic acid Avoid use of hydroxyzine, bupropion, trazodone Anticoagulation: Warfarin 3mg po nightly INR 2.42 on 10/17/24 INR recheck on 10/18/24 Activity Level: No Restrictions and Activity as Tolerated Activity Detail: L shoulder pain s/p fall. Encourage gentle ROM, strengthening. Avoid immobilization. Tylenol and lidocaine patch prn. Elevation to decrease swelling. Discharge Diet: Other Diet Detail: Recommendations from PLATE GRAINER APPRENTICE: 1) IDDSI Level 6 - Soft/Bite sized 2) Thin liquids 3) Meds in puree carrier followed by sip of water. 4) Sitting up, chin tucked. SLOW RATE and frequent breaks during meals. No talking while eating. Follow Up Appointments: Nellie Bear MD [Primary Care Provider] - Forms: [facility] Info Instructions Admit to: SNF Discharge Potential: Good Length of Stay: <30 days Can use facility standing orders?: Yes Code Status: DNR/DNI Rehab Potential: Good Therapy: Physical Therapy and Occupational Therapy Therapy Orders: Evaluate and Treat Therapy Orders Additional Information: As above Oxygen: No Urinary Catheter: No Next INR: 10/18/24 INR Goal: 2-3 Orders are good >30 days: No Signature: OMA Aguilar, PA-C [facility]
[2024-10-17 11:00] VITALS: BP 111/54; PULSE 61; RESP 18; TEMP 36.9; O2SAT 99
--- NOTE | 2024-10-17 11:34 | PC.SOCIAL ---
Addendum entered by LALA Crews 10/17/24 11:40: Called [facility] and spoke with nurse, Arin, who is aware and pleased with plan for rehab prior to returning to [facility]. Arin will follow up with pt at [facility] to monitor progress and assist pt with transition back to [facility] from [facility] when rehab is completed. Original Note: Discharge planning: Met with pt who is agreeable to discharge today to [facility] for short term rehab. PT is requesting her friend pick her up for transport at discharge. Friend will pick her up at 1:00 today. Secure emailed Discharge orders and PAS information to [facility] corporate wellness coordinator, Graham. Graham is aware and agrees with time for discharge. PAS completed PAS#[id number]. Provided pt with copy of Important Message from Medicare and explained option to appeal discharge. Pt is agreeable with discharge plan. At pt request, called dtr in [place], Cassidy [phone]. Dtr did not answer and social media developer left message with social workers contact information if she has any questions. Patient is aware message left but did not reach daughter.
--- NOTE | 2024-10-17 13:58 | PC.NURSE ---
DC: Pt alert, oriented and vitally stable. Pt has complaints of mild nausea, prn zofran given, pt stated improvement. Pt moves via SBA, tolerates well. DC information given to pt, friend and nurse to nurse (Lashaun from the [facility]). Educated on manila folder going to the nurse at the [facility]. DC to the [facility] with friends at [phone].
== END 2024-10-17 13:39 | DRG 91 ==
LOC: ED 18:59 → MEDSURG 20:29
PROVIDERS: Family Medicine; Physician Assistant; Admitting Provider Internal Medicine; Emergency Provider Family Medicine; PCP Family Medicine; Visit Provider Internal Medicine
DX: G92.8 Other toxic encephalopathy (principal); I50.23 Acute on chronic systolic (congestive) heart failure; T43.595A Adverse effect of other antipsychotics and neuroleptics, initial encounter; I97.0 Postcardiotomy syndrome; I11.0 Hypertensive heart disease with heart failure; E87.6 Hypokalemia; R29.6 Repeated falls; Z91.81 History of falling; M25.512 Pain in left shoulder; W18.31XA Fall on same level due to stepping on an object, initial encounter; Y92.099 Unspecified place in other non-institutional residence as the place of occurrence of the external cause; R13.10 Dysphagia, unspecified; D64.9 Anemia, unspecified; Z79.01 Long term (current) use of anticoagulants; R07.89 Other chest pain; Z95.0 Presence of cardiac pacemaker; Z95.2 Presence of prosthetic heart valve; I48.91 Unspecified atrial fibrillation; R11.2 Nausea with vomiting, unspecified; F41.1 Generalized anxiety disorder; G89.29 Other chronic pain; M54.2 Cervicalgia; M54.89 Other dorsalgia; Z79.899 Other long term (current) drug therapy; R53.81 Other malaise; M25.551 Pain in right hip; I08.1 Rheumatic disorders of both mitral and tricuspid valves; I27.20 Pulmonary hypertension, unspecified; F32.9 Major depressive disorder, single episode, unspecified; G25.81 Restless legs syndrome; E78.5 Hyperlipidemia, unspecified; E03.9 Hypothyroidism, unspecified; Z85.3 Personal history of malignant neoplasm of breast
CPT/HCPCS: 36415; 51798; 70450; 71260; 72125; 73030; 73502; 74177; 80048; 80053; 81001; 82565; 83735; 83880; 84100; 84484; 85025; 85610; 86140; 92526; 92610; 93005; 97110; 97112; 97116; 97162; 97165; 97535; 99284; 99285; G0378; A9270; J2060; J3480; Q9967

== ENCOUNTER 2024-11-28 11:36 | Outpatient (CLI) | payer MEDICARE, OTHER, SELFPAY | END 2024-11-28 11:37 | disposition home or self-care (01) | LOC: AMB 11-29 08:09 | PROVIDERS: PCP Family Medicine; Visit Provider Emergency Medicine | DX: S29.9XXA Unspecified injury of thorax, initial encounter (principal); W19.XXXA Unspecified fall, initial encounter; Y92.039 Unspecified place in apartment as the place of occurrence of the external cause | CPT/HCPCS: A0425; A0427 ==

== ENCOUNTER 2024-11-28 12:10 | Emergency (ER) | payer MEDICARE, OTHER, SELFPAY ==
[2024-11-28 12:24] VITALS: BP 124/87; PULSE 85; RESP 18; TEMP 36.6; O2SAT 100; BMI 24.4
--- NOTE | 2024-11-28 12:31 | ED.FALL ---
HPI - Fall General Time Seen by Provider: 12:31 Date Seen: 11/28/24 Chief Complaint: Fall/Minor Trauma Stated Complaint: fall Time Seen by Provider: 11/28/24 12:30 Source: patient, EMS, RN notes reviewed and old records reviewed Mode of arrival: EMS Limitations: no limitations History of Present Illness HPI Narrative: This 74-year-old female is brought by EMS from [facility] where she resides for complaint of right flank spasms. She actually fell last night at about 6:30 p.m.. She tripped over her own feet. She was walking on the carpeted floor, fell from standing. She was trying to ambulate a short distance without her walker. She was able to get up, was evaluated by nursing staff last night. She did not come in. She did not hit her head reportedly, no loss of consciousness. She is on Coumadin. She states she had recent open heart surgery but cannot give me any details. She is not really aware what happen. She states they went in and then went in again. Did review her records, she had a mitral valve replacement on 08/20/2024. She did have a subsequent pacemaker placed. She notes today that she had some flank spasms, she has fractured ribs before. She is also complaining of some neck pain, some mid back pain. No chest pain that is thought to be cardiac, she does states she has chronic pain along her sternotomy scar. She is anticoagulated with Coumadin. [facility] did bring her in and did give her 50 mcg fentanyl, 4 mg Zofran. They found her blood sugar to be 162. complaint: fall Related Data Home Medications ?Medication ?Instructions ?Recorded ?Confirmed doxycycline hyclate 100 mg capsule 100 mg PO BID 06/12/23 11/28/24 estradiol 0.01% (0.1 mg/gram) 0.5 appful vaginal 3XW 06/12/23 11/28/24 vaginal cream levothyroxine 88 mcg tablet 88 mcg PO DAILY 06/12/23 11/28/24 pantoprazole 40 mg tablet,delayed 40 mg PO DAILY 06/12/23 11/28/24 release pramipexole 0.125 mg tablet 0.125 mg PO TID 06/12/23 11/28/24 rosuvastatin 10 mg tablet 10 mg PO HS 06/12/23 11/28/24 sumatriptan succinate 6 mg/0.5 mL 6 mg subcut Q2H PRN 06/12/23 11/28/24 subcutaneous pen injector torsemide 20 mg tablet 20 mg PO DAILY 06/12/23 11/28/24 venlafaxine 150 mg 150 mg PO HS 06/12/23 11/28/24 capsule,extended release 24 hr cranberry 500 mg capsule 500 mg PO BID 05/07/24 11/28/24 metronidazole 0.75 % topical cream 1 applic topical BID PRN 05/07/24 11/28/24 ondansetron HCl 4 mg tablet 4 mg PO Q4H PRN 05/07/24 11/28/24 rizatriptan 10 mg tablet 10 mg PO BID PRN 05/07/24 11/28/24 acetaminophen 650 mg 1,300 mg PO Q12H PRN 10/09/24 11/28/24 tablet,extended release (Arthritis Pain Relief (acetaminophen) ER) cyanocobalamin (vitamin B-12) 1,000 mcg PO DAILY 10/09/24 10/09/24 1,000 mcg capsule polyethylene glycol 3350 17 17 g PO DAILY 10/09/24 11/28/24 gram/dose oral powder (Laxative PEG 3350) quetiapine 50 mg tablet 25 mg PO QPM PRN 10/09/24 11/28/24 warfarin 3 mg tablet 3 mg PO DAILY 10/09/24 11/28/24 amiodarone 200 mg tablet 200 mg PO DAILY 11/28/24 11/28/24 pramipexole 0.125 mg tablet 0.125 mg PO TID 11/28/24 11/28/24 Previous Rx's ?Medication ?Instructions ?Recorded amiodarone 200 mg tablet 200 mg PO DAILY #30 tabs 10/16/24 aspirin 81 mg tablet,delayed 81 mg PO DAILY #30 tabs 10/16/24 release escitalopram oxalate 10 mg tablet 15 mg (1.5 x 10 mg) PO DAILY #60 10/16/24 tabs lidocaine 5 % topical patch 1 patch transdermal Q24H PRN #10 ea 10/16/24 losartan 50 mg tablet 50 mg PO DAILY #30 tabs 10/16/24 pregabalin 150 mg capsule 150 mg PO QHS #30 caps 10/16/24 pregabalin 75 mg capsule 75 mg PO QAM #30 caps 10/16/24 spironolactone 25 mg tablet 25 mg PO DAILY #30 tabs 10/16/24 pregabalin 150 mg capsule 150 mg PO QHS #30 caps 10/17/24 pregabalin 75 mg capsule 75 mg PO DAILY #30 caps 10/17/24 Allergies Allergy/AdvReac Type Severity Reaction Status Date / Time Penicillins Allergy Intermediate Rash Verified 11/28/24 12:24 amoxicillin Allergy Unknown Verified 11/28/24 12:24 butorphanol Allergy Verified 11/28/24 12:24 [place] And Derivatives Allergy Verified 11/28/24 12:24 codeine Allergy Verified 11/28/24 12:24 lactase (From Dairy Aid) Allergy Verified 11/28/24 12:24 morphine Allergy Verified 11/28/24 12:24 nut - unspecified Allergy Verified 11/28/24 12:24 nickel AdvReac Unknown Rash Verified 11/28/24 12:24 prochlorperazine AdvReac Verified 11/28/24 12:24 Review of Systems Status of ROS: Reports: 6 or more systems reviewed and unremarkable except as noted in History and below Narrative: Patient is not giving any other acute complaints of pain or positive pertinent on her physical exam questions or pain questions but is not noted to be a very good historian about her medical history. [facility] Medical History (Updated 11/28/24 @ 16:26 by Amanda Jenkins MD) Intractable nausea and vomiting ?R11.2 - Nausea with vomiting, unspecified (ICD-10) Dysphagia ?R13.10 - Dysphagia, unspecified (ICD-10) Polypharmacy ?Z79.899 - Other detention (current) drug therapy (ICD-10) Chronic pain ?G89.29 - Other chronic pain (ICD-10) Anxiety ?F41.9 - Anxiety disorder, unspecified (ICD-10) Pacemaker ?Z95.0 - Presence of cardiac pacemaker (ICD-10) Hypothyroidism ?E03.9 - Hypothyroidism, unspecified (ICD-10) History of thrombocytopenia ?Z86.2 - Personal history of diseases of the blood and blood-forming organs and certain disorders involving the immune mechanism (ICD-10) Breast cancer ?C50.919 - Malignant neoplasm of unspecified site of unspecified female breast (ICD-10) Hyperlipidemia ?E78.5 - Hyperlipidemia, unspecified (ICD-10) Degenerative disc disease Restless legs ?G25.81 - Restless legs syndrome (ICD-10) Depression ?F32.A - Depression, unspecified (ICD-10) Atrial fibrillation ?I48.91 - Unspecified atrial fibrillation (ICD-10) Mitral regurgitation ?I34.0 - Nonrheumatic mitral (valve) insufficiency (ICD-10) Surgical History (Updated 10/25/24 @ 00:00 by Background Daemon) Status post ORIF of fracture of ankle ?Z98.890 - Other specified postprocedural states (ICD-10) ?Z87.81 - Personal history of (healed) traumatic fracture (ICD-10) H/O endoscopic sinus surgery ?Z98.890 - Other specified postprocedural states (ICD-10) History of cholecystectomy ?Z90.49 - Acquired absence of other specified parts of digestive tract (ICD-10) H/O cervical spine surgery ?Z98.890 - Other specified postprocedural states (ICD-10) S/P lumpectomy, left breast ?Z98.890 - Other specified postprocedural states (ICD-10) Previous back surgery ?Z98.890 - Other specified postprocedural states (ICD-10) 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 . Daughter Cassidy is healthcare power of decatizer. Code status is DNR. She does not smoke. She does not drink alcohol What is your current living situation?: I presently have a place to live Problems where you live: no known problems Problems where you live details: n/a In the past 12 months, utilities in danger of being shut off: no In past 12 months, lack of transportation kept you from medical appts, meetings, work, or getting things needed for daily living: yes In the past 12 mos, have been you worried that your food would run out before you had money to buy more?: never true In the past 12 mos, the food you bought just didn't last and you didn't have money to buy more?: never true Highest level of school completed/degree received: Master's degree Smoking Status: Never smoker Do you use any of these nicotine containing products: None Second hand tobacco smoke exposure: No How often do you have a drink containing alcohol: never AUDIT-C Alcohol total score: 0 Non-prescribed substance use: denies use Caffeine: No How often does anyone, including family, friends and others, physically hurt you: never How often does anyone, including family, friends and others, insult or talk down to you: never How often does anyone, including family, friends and others, threaten you with harm: never How often does anyone, including family, friends and others, scream or curse at you: never service: No Health Related Social Needs: transportation insecurity (Z59.82) Exam Const: Vital Signs, click to edit/add: Vital Signs - 24 hr 11/28/24 12:24 11/28/24 14:41 Temperature 98 F 96.6 F L Pulse Rate [Pulse Oximeter] 85 99 Respiratory Rate 18 18 Blood Pressure [Le ft Upper Arm] 124/87 128/85 Pulse Oximetry 100 95 Oxygen Delivery Me thod Room Air Room Air Unruly is a 74-year-old female that is alert, interactive, seems slightly groggy probably from the fentanyl. Pupils are equal round reactive, sclera clear, symmetrical facial function. Scalp and face seem to be atraumatic. She has no midline tenderness of her neck, no paraspinal tenderness. She has lower thoracic and mid upper lumbar pain when palpating centrally on her back. Note no overlying traumatic changes or skin changes. She is kyphotic, lungs are clear, good air entry, no wheezing or crackles. She is tender along the right lower flank area on the ribs but there is no step-off or crepitus. CV regular rate, valve murmur heard, normal S1. She has got a well-healed sternotomy scar, mild tenderness over this but no step-off. Abdomen is soft, nontender, nondistended with the exception she does complain of some pain just below the right rib margin. She is moving extremities, no focal point of tenderness on arms or legs. No significant edema noted. Documenting provider has reviewed patient's vital signs: yes Course Course ED Course: This patient is on Coumadin, did fall and is not a great historian. Do feel that we need to do CT imaging of her head to rule out any intracranial bleeding. Will do imaging of her cervical thoracic and lumbar spine given her complaints of pain. Given the right chest wall and flank pain, do feel that we need to proceed with imaging of her chest abdomen pelvis with IV contrast, she did have a fall and is anticoagulated. Will do baseline labs, she does need to urinate and will do urinalysis as well. Doubt that this is infectious based on the history, she does seem to have reliable recollection of why she fell last night. Reevaluation(s) Time of Reevaluation #1: 13:12 Reevaluation #1: Patient complaining of more nausea again, do wonder if this could be side effect of the fentanyl. Awaiting imaging and labs. Time of Reevaluation #2: 15:27 Reevaluation #2: Patient has some very mild tenderness on her anterior lower sternal wall on re-evaluation. She states she has to have something to eat. She has been requesting food and I have to this point decline. Will allow her some clears. I am going to try to talk to Radiology regarding the CT scan. Did speak with the radiologist. He states that this looks like the sternotomy is poorly healing and that there was chronic inflammation from the bones moving and rubbing. This alternatively could be early infectious etiology but it does not seem like this clinically. Patient does have some chronic pain since her sternotomy. Will update the patient on this. She is happy to go home. Vital Signs Vital signs: Initial Vital Signs Temperature 98 F 11/28/24 12:24 Temperature Source Oral 11/28/24 12:24 Pulse Rate 85 11/28/24 12:24 Respiratory Rate 18 11/28/24 12:24 Blood Pressure 124/87 11/28/24 12:24 Blood Pressure Mean 99 11/28/24 12:24 Blood Pressure Position Semi-Fowlers 11/28/24 12:24 Pulse Oximetry 100 11/28/24 12:24 Oxygen Delivery Method Room Air 11/28/24 12:24 Vital Signs Temperature 98 F 11/28/24 12:24 Pulse Rate 85 11/28/24 12:24 Respiratory Rate 18 11/28/24 12:24 Blood Pressure 124/87 11/28/24 12:24 Pulse Oximetry 100 11/28/24 12:24 Oxygen Delivery Method Room Air 11/28/24 12:24 Temperature 96.6 F L 11/28/24 14:41 Pulse Rate 99 11/28/24 14:41 Respiratory Rate 18 11/28/24 14:41 Blood Pressure 128/85 11/28/24 14:41 Pulse Oximetry 95 11/28/24 14:41 Oxygen Delivery Method Room Air 11/28/24 14:41 Medications Administered Medications: Discontinued Medications Generic Name Dose Route Start Last Admin Trade Name Fredq PRN Reason Stop Dose Admin Ondansetron HCl 4 mg 11/28/24 13:11 11/28/24 13:16 Ondansetron 2 Mg/Ml Inj IVP 11/28/24 13:12 4 mg ONCE ONE Administration - Fall Lab Data Attestation: I reviewed the patient's lab results. Lab results narrative: INR on November 19 was 1.9. Hemoglobin on October 19 was 9, sodium was 136. Labs: Lab Results 11/28/24 11/28/24 Range/Units 12:47 12:58 WBC 5.77 (4.50-11.00) K/uL RBC 3.85 L (4.00-5.20) m/uL Hgb 10.6 L (12.0-16.0) gm/dL Hct 34.0 (33.0-51.0) % MCV 88 (80-100) fL MCH 28 (26-34) pg MCHC 31 L (32-36) gm/dL RDW Coeff of Vielka 17.4 H (11.5-15.5) % Plt Count 129 L (140-440) K/uL Neut % (Auto) 72.8 H (42.0-72.0) % Lymph % (Auto) 12.5 L (20-44) % [place] % (Auto) 13.0 H (0.0-11.0) % Eos % (Auto) 1.2 (0.0-7.0) % Baso % (Auto) 0.3 (0.0-3.0) % Neut # (Auto) 4.20 (1.7-7.0) K/uL Lymph # (Auto) 0.70 L (0.90-2.90) K/uL [place] # (Auto) 0.80 (0.00-0.90) K/UL Eos # (Auto) 0.07 (0.00-0.50) K/uL Baso # (Auto) 0.02 (0.00-0.30) K/uL Abs Immat Gran (auto) 0.01 (0.00-0.30) K/uL Imm/Tot Granulo (auto) 0.2 % INR 1.75 H (0.91-1.10) Sodium 132 L (135-149) mmol/L Potassium 3.7 (3.6-5.1) mmol/L Chloride 96 (96-114) mmol/L Carbon Dioxide 30 (20-32) mmol/L Anion Gap 6 L (7-15) mEq/L BUN 24 (7-30) mg/dL Creatinine 0.8 (0.5-1.5) mg/dL Estimated Creat Clear 36.12 Estimated GFR 76 ml/min Glucose 95 (60-115) mg/dL Calcium 8.7 (8.4-10.6) mg/dL Total Bilirubin 0.8 (0.1-1.5) mg/dL AST 32 (12-35) U/L ALT 27 (4-35) U/L Alkaline Phosphatase 92 (40-150) U/L Total Protein 5.7 L (6.0-8.3) g/dL Albumin 3.7 (3.3-5.0) g/dL Urine Color Yellow (Yellow) Urine Appearance Clear (Clear) Urine pH 7.0 (5.0-8.5) Ur Specific [place] 1.010 (1.000-1.030) Urine Protein Negative (Negative) Urine Glucose (UA) Negative (Negative) Urine Ketones Negative (Negative) Urine Blood Negative (Negative) Urine Nitrite Negative (Negative) Urine Bilirubin Negative (Negative) Urine Urobilinogen 0.2 (0.2-1.0) Ur Leukocyte Esterase Negative (Negative) Urine RBC 0-2 (0-2) Urine WBC 0-2 (0-5) Ur Squamous Epith Cells None (None-Few) Urine Bacteria None (None) Imaging Data CT Chest/Ab/Pelvis: Attestation: I have reviewed the pertinent imaging results. Radiologist's impression: Patient: UNRULY THOMPSON Facility:[facility] Patient ID:?[id number] Site Patient ID:?[id number]. Site :?[id number] Study:?CT-Chest/Abd/Pelvis 64CC ISOVUE 370-11/28/2024 2:25:53 PM Ordering Physician:Joshua Patel Final Report: INDICATION: Fall. TECHNIQUE: CT chest, abdomen and pelvis acquired with 64 cc of Isovue 370 IV contrast. COMPARISON: CT chest, abdomen and pelvis 10/08/2024. FINDINGS: CHEST: No pleural or pericardial effusions. No pathologic lymphadenopathy. Aortic atherosclerosis. Thoracic aorta is normal in caliber. Main pulmonary artery is dilated to 3.1 cm. Cardiomegaly, coronary artery calcifications, intracardiac device and mitral valve replacement, as before. Subcutaneous stranding about the lower 3rd of the sternal body has slightly increased. No discrete chest wall fluid collection. No pneumothorax. Central airways are patent. Motion artifact with mild bilateral subsegmental atelectasis. Lungs are otherwise clear. ABDOMEN: Liver is unremarkable. Cholecystectomy. No biliary ductal dilatation. Stable postoperative changes about the tail of the pancreas. Pancreas is otherwise unremarkable. Spleen, adrenal glands and kidneys are unremarkable. Fecal loading of the colon. No bowel obstruction or focal inflammatory change. No pathologic lymphadenopathy or free fluid. Atherosclerotic disease. No abdominal aortic aneurysm. Stable left upper quadrant varices. PELVIS: Hysterectomy. Bladder as imaged is unremarkable. Pelvic GI tract is unremarkable. No lymphadenopathy or free fluid. Bone windows demonstrate a mildly displaced fracture involving the inferior 3rd of the body of the sternum that demonstrates increased displacement in the interval. Lucency about the distal 3rd of the sternal body near the fracture has also increased. Remote left rib fractures. Degenerative and postoperative changes of the spine. No evidence of hardware complication. IMPRESSION: 1. No acute traumatic abnormality in the chest, abdomen or pelvis. 2. Displaced fracture in the lower body of the sternum with associated osseous lucency and soft tissue stranding has increased. This raises concern for possible infection/osteomyelitis. Dictated by Cheikh Escobar MD @ 11/28/2024 2:49:15 PM Please note that all CT scans at this facility use dose modulation, iterative reconstruction, and/or weight-based dosing when appropriate to reduce radiation dose to as low as reasonably achievable. Dictated by: Cheikh Escobar MD @ 11/28/2024 14:50:11 (Electronic Signature) CT scan - head: Attestation: I have reviewed the pertinent imaging results. Radiologist's impression: Patient: UNRULY THOMPSON Facility:?[facility] Patient ID:?[id number] Site Patient ID:?[id number]. Site :?1950 Study:?CT-Head W/O-11/28/2024 2:05:32 PM Ordering Physician:Joshua Patel Final Report: Indication: Fall, Coumadin Technique: Volumetric multidetector CT images of the head were obtained without the administration of low osmolar intravenous contrast. Comparison: CT head October 08, 2024 Findings: There is no intra-axial or extra-axial fluid collection. There is no mass effect or midline shift. There is age-related cortical atrophy with mild sulcal widening and ex vacuo dilatation of the lateral ventricles. There are chronic small vessel disease changes in the subcortical and periventricular white matter without lost hayes-white differentiation. The orbits and their contents are grossly within normal limits. The bony calvarium is grossly intact. The paranasal sinuses are clear. The mastoid air cells are well aerated. Impression: 1. Age-related changes of the brain without acute intracranial abnormality. Please note that all CT scans at this facility use dose modulation, iterative reconstruction, and/or weight-based dosing when appropriate to reduce radiation dose to as low as reasonably achievable. Dictated by Alexx Navarro MD @ 11/28/2024 2:29:57 PM (Electronic Signature) CT cervical spine: Attestation: I have reviewed the pertinent imaging results. Radiologist's impression: Patient: UNRULY THOMPSON Facility:?[facility] Patient ID:?[id number] Site Patient ID:?[id number]. Site :?1950 Study:?CT-Spine Cervical W/O-11/28/2024 2:06:23 PM Ordering Physician:Joshua Patel Final Report: Indication: Fall, neck pain Technique: Volumetric multidetector CT images of the cervical spine were obtained without the administration of IV contrast. Comparison: CT cervical spine without contrast October 08, 2024 Findings: The cervical vertebral body heights are grossly maintained with stable mild subchondral cystic change of the anterosuperior C3 level. Extensive anterior fusion is appreciated similar to previous exam. Stable straightening of the normal cervical lordosis without evidence of significant spondylolisthesis. There is no displaced fracture or dislocation. There is extensive decompressive laminectomy from the C2-C3 through C5-C6 level with lateral mass screws seen throughout the entire cervical spine. No obvious hardware loosening or displaced fracture. There is stable facet imbrication and fusion changes. The paraspinous soft tissues are grossly within normal limits. Impression: Stable postoperative changes of the cervical spine status post decompressive laminectomy from C2 through C6 C7 with posterior fixation with lateral mass screws and stabilization rods similar to previous exam. No hardware failure or acute osseous abnormality. Please note that all CT scans at this facility use dose modulation, iterative reconstruction, and/or weight-based dosing when appropriate to reduce radiation dose to as low as reasonably achievable. Dictated by Alexx Navarro MD @ 11/28/2024 2:23:17 PM (Electronic Signature) CT thoracic spine: Attestation: I have reviewed the pertinent imaging results. Radiologist's impression: Patient: UNRULY THOMPSON Facility:?[facility] Patient ID:?[id number] Site Patient ID:?[id number]. Site :?1950 Study:?CT-Spine Thoracic -11/28/2024 2:27:19 PM Ordering Physician:Joshua Patel Final Report: INDICATION: Fall. TECHNIQUE: CT of the thoracic spine reformatted from CT chest, abdomen and pelvis with contrast same day. COMPARISON: None. FINDINGS: Vaso-jq-[id number] multilevel degenerative changes of the thoracic spine. Cervicothoracic posterior spinal fusion hardware terminating at T2 as imaged appears intact. No evidence of acute fracture or malalignment. No high-grade bony central canal compromise at any level. No other osseous abnormality. Please refer to CT chest, abdomen and pelvis same day for additional discussion of paraspinal soft tissues. IMPRESSION: No acute thoracic spine fracture. Dictated by Cheikh Escobar MD @ 11/28/2024 2:53:14 PM Please note that all CT scans at this facility use dose modulation, iterative reconstruction, and/or weight-based dosing when appropriate to reduce radiation dose to as low as reasonably achievable. Dictated by: Cheikh Escobar MD @ 11/28/2024 14:53:19 (Electronic Signature) CT lumbar spine: Attestation: I have reviewed the pertinent imaging results. Radiologist's impression: Patient: UNRULY THOMPSON Facility:?[facility] Patient ID:?[id number] Site Patient ID:?[id number]. Site :?1950 Study:?CT-Spine Lumbar -11/28/2024 2:26:43 PM Ordering Physician:?Alice Patel Final Report: INDICATION: Fall. TECHNIQUE: CT of the lumbar spine reformatted from CT chest, abdomen and pelvis with contrast same day. COMPARISON: CT chest, abdomen and pelvis with contrast same day. FINDINGS: Mild rightward convex curvature centered at L3. Posterior and interbody fusion hardware at L5-S1. There is lucency surrounding the bilateral S1 pedicle screws. Fusion hardware is otherwise intact. [id number] multilevel degenerative changes. No high-grade bony central canal stenosis at any level. [id number] multilevel bilateral bony neural foraminal narrowing greatest at L5-S1. No evidence of acute fracture. No other osseous abnormality. Please refer to CT chest, abdomen and pelvis same day for additional discussion of paraspinal soft tissues. IMPRESSION: 1. No acute lumbar spine fracture. 2. Loosening of the bilateral S1 pedicle screws. L5-S1 fusion hardware is otherwise intact. Dictated by Cheikh Escobar MD @ 11/28/2024 2:56:39 PM Please note that all CT scans at this facility use dose modulation, iterative reconstruction, and/or weight-based dosing when appropriate to reduce radiation dose to as low as reasonably achievable. 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 The CT is showing that your sternum is poorly healing and that there is some chronic inflammation there. Your primary care provider can refer you back to the surgeon if needed. Your sodium was just minimally low here, this should be rechecked within the next 1-2 weeks. Your INR today was 1.75. Whoever is managing your anticoagulation should be given this result as the warfarin/Coumadin dosing may need alteration. Activity Level: Use Walker Prescriptions: No Action ondansetron HCl 4 mg tablet 4 mg PO Q4H PRN rizatriptan 10 mg tablet 10 mg PO BID PRN metronidazole 0.75 % cream 1 applic topical BID PRN cranberry 500 mg capsule 500 mg PO BID Rx Instructions: administer with meals doxycycline hyclate 100 mg capsule 100 mg PO BID torsemide 20 mg tablet 20 mg PO DAILY venlafaxine 150 mg capsule,extended release 24hr 150 mg PO HS levothyroxine 88 mcg tablet 88 mcg PO DAILY pantoprazole 40 mg tablet,delayed release (DR/EC) 40 mg PO DAILY pramipexole 0.125 mg tablet 0.125 mg PO TID estradiol 0.01 % (0.1 mg/gram) cream 0.5 appful vaginal 3XW sumatriptan succinate 6 mg/0.5 mL pen injector 6 mg subcut Q2H PRN rosuvastatin 10 mg tablet 10 mg PO HS polyethylene glycol 3350 [Laxative PEG 3350] 17 gram/dose powder 17 g PO DAILY quetiapine 50 mg tablet 25 mg PO QPM PRN warfarin 3 mg tablet 3 mg PO DAILY acetaminophen [Arthritis Pain Relief (acetam)] 650 mg tablet extended release 1,300 mg PO Q12H PRN cyanocobalamin (vitamin B-12) 1,000 mcg capsule 1,000 mcg PO DAILY losartan 50 mg Tablet 50 mg PO DAILY Qty: 30 0RF spironolactone 25 mg Tablet 25 mg PO DAILY Qty: 30 0RF aspirin 81 mg Tablet,Delayed Release (Dr/Ec) 81 mg PO DAILY Qty: 30 0RF lidocaine 5 % Adhesive Patch,Medicated 1 patch transdermal Q24H PRNQty: 10 0RF Rx Instructions: Left shoulder pain escitalopram oxalate 10 mg Tablet 15 mg PO DAILY Qty: 60 0RF amiodarone 200 mg tablet 200 mg PO DAILY Qty: 30 0RF Patient Comments: 400 MG BID THROUGH 10/11/24 THEN 200 MG DAILY THEREAFTER. pregabalin 75 mg capsule 75 mg PO QAM Qty: 30 0RF pregabalin 150 mg capsule 150 mg PO QHS Qty: 30 0RF pregabalin 75 mg capsule 75 mg PO DAILY Qty: 30 0RF pregabalin 150 mg capsule 150 mg PO QHS Qty: 30 0RF pramipexole 0.125 mg tablet 0.125 mg PO TID amiodarone 200 mg tablet 200 mg PO DAILY Follow Up/Referrals: Nellie Bear MD [Primary Care Provider] - Stand Alone Forms: [facility] Info Instructions
[2024-11-28 12:59] LABS: Appearance Urine Clear (Clear); Bilirubin Urine Negative (Negative); Blood Urine Negative (Negative); Color Urine Yellow (Yellow); Glucose Urine Negative (Negative); Ketones Urine Negative (Negative); Leukocyte Esterase Urine Negative (Negative); Nitrite Urine Negative (Negative); Protein Urine Negative (Negative); Urobilinogen Urine 0.2 (0.2-1.0)
[2024-11-28 13:07] LABS: Basophils Absolute Auto 0.02 K/uL (0.00-0.30); Basophils Percent Auto 0.3 % (0.0-3.0); Eosinophils Absolute Auto 0.07 K/uL (0.00-0.50); Eosinophils Percent Auto 1.2 % (0.0-7.0); Hemoglobin* 10.6 gm/dL (12.0-16.0); Immature Granulocytes Abs Auto 0.01 K/uL (0.00-0.30); Immature Granulocytes Pct Auto 0.2 %; Lymphocytes Percent Auto 12.5 % (20-44); Mean Corpuscular HGB Conc 31 gm/dL (32-36); Mean Corpuscular Hemoglobin 28 pg (26-34); Mean Corpuscular Volume 88 fL (80-100); Neutrophils Percent Auto 72.8 % (42.0-72.0); Platelet Count* 129 K/uL (140-440); RDW Coefficient of Variation % 17.4 % (11.5-15.5); Red Blood Count 3.85 m/uL (4.00-5.20); White Blood Count* 5.77 K/uL (4.50-11.00)
[2024-11-28 13:10] LABS: Slide Review Reflex No
[2024-11-28] MEDS: ONDANSETRON 2 MG/ML inj 4 MG IVP (13:16)
[2024-11-28 13:17] LABS: Albumin* 3.7 g/dL (3.3-5.0); Chloride* 96 mmol/L (96-114); Potassium* 3.7 mmol/L (3.6-5.1); Sodium* 132 mmol/L (135-149)
[2024-11-28 13:19] LABS: Creatinine* 0.8 mg/dL (0.5-1.5); Est. Creatinine Clearance* 36.12; Estimated Glomerular Filt Rate 76 ml/min
[2024-11-28 13:20] LABS: Alanine Aminotransferase* 27 U/L (4-35); Alkaline Phosphatase* 92 U/L (40-150); Anion Gap 6 mEq/L (7-15); Aspartate Amino Transferase* 32 U/L (12-35); Bilirubin Total* 0.8 mg/dL (0.1-1.5); Blood Urea Nitrogen* 24 mg/dL (7-30); Calcium* 8.7 mg/dL (8.4-10.6); Carbon Dioxide* 30 mmol/L (20-32); Glucose* 95 mg/dL (60-115); INR 1.75 (0.91-1.10); Prothrombin Time 21.6 Seconds; Total Protein* 5.7 g/dL (6.0-8.3)
[2024-11-28 13:27] LABS: RBC Urine 0-2 (0-2); WBC Urine 0-2 (0-5)
[2024-11-28 14:41] VITALS: BP 128/85; PULSE 99; RESP 18; TEMP 35.9; O2SAT 95
== END 2024-11-28 16:30 | disposition home or self-care (01) ==
PROVIDERS: Emergency Provider Family Medicine; PCP Family Medicine
DX: S22.20XK Unspecified fracture of sternum, subsequent encounter for fracture with nonunion (principal); W01.0XXA Fall on same level from slipping, tripping and stumbling without subsequent striking against object, initial encounter; Z79.01 Long term (current) use of anticoagulants
CPT/HCPCS: 36415; 70450; 71260; 72125; 72128; 72131; 74177; 80053; 81001; 85025; 85610; 94761; 96374; 99285; J2405; Q9967